=== PATIENT | female | born 1970 | race Native Hawaiian/Other Pacific Islander ===

== ENCOUNTER 2018-07-14 10:30 | Outpatient (RCR) | payer OTHER, SELFPAY ==
--- NOTE | 2018-02-03 06:09 | PT.OIE ---
Current Diagnoses Achilles tendinitis, unspecified leg (01/30/18) Past Surgical History History of third molar tooth extraction Status post delivery (06/10/04) Status post delivery (02/15/07) Provider Visit Care Team Role Provider Type Alisha Dorsey MD Family Provider Physician Specialty: AUTO BODY REPAIR TECHNICIAN Address: [address] [place] [id number] Email: [email or web address] Aristeo Oliva MD Attending Provider Physician Primary Care Provider Specialty: Family Practice Address: [address] [place] [address], [id number] Email: [email or web address] Physical Therapy Initial Evaluation PT-OP-A Visit Information Start: 02/03/18 05:41 Freq: Status: Active Protocol: Document 01/30/18 15:15 [facility] (Rec: 02/03/18 06:08 [facility] [email or web address]) Out-Patient Physical Therapy Visit Information Visit Information Visit Type Initial Evaluation Visit Start Time 15:15 Visit Stop Time 16:00 Total Visit Minutes 45 Visit Number 1 Number of COURTESY BUS DRIVER Visits 0 Evaluation Information Evaluation Date 01/30/18 PT-OP-B Current Condition Start: 02/03/18 05:41 Freq: Status: Active Protocol: Document 01/30/18 15:15 [facility] (Rec: 02/03/18 06:08 [facility] [email or web address]) Current Condition History of Current Condition Onset Date 1 year ago Current Complaints achilles pain left greater than right made worse with long distance running History of Current Condition 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 This progressed to effect her achilles tendon and felt acute in June. Lilliam notes she took a month off of running due to her pain. She then began training for a 50 k run in october. She was able to finish the run but she notes she could barely walk following. She is currently running approximately 15-20 miles a week now which is half of what she normally runs. She reports she has to start out really slow for her first few miles and then pain can begin after 5 miles. Treatment Goals Patient/Caregiver Goals Lilliam's goals include continuing to run without pain and to learn ways to manage her symptoms Current Functional Impairments (Reported) Functional Limitations- Recreation/ limited in running greater Hobbies than 5 miles at a time PT-OP-F Manual Assessment Start: 02/03/18 05:41 Freq: Status: Active Protocol: Document 01/30/18 15:15 [facility] (Rec: 02/03/18 06:08 [facility] [email or web address]) Manual Assessments Soft Tissue Assessment Soft Tissue Mobility Assessment tightness in the left greater than right gastroc and palpable nodule on the medial aspect of bilateral achilles Left>Right left iliopsoas tightness, + nirav test left hamstring tightness SLR 60 deg Joint Mobility Assessment Joint Mobility Assessment + ALSR on the left for SI joint instability LEft leg longer in supine PT-OP-J Posture/Palpation/Skin Start: 02/03/18 05:41 Freq: Status: Active Protocol: Document 01/30/18 15:15 [facility] (Rec: 02/03/18 06:08 [facility] [email or web address]) Palpation Assessment Location Two Palpation Location gastroc and soleus Palpation Findings Soft Tissue Tightness One Palpation Location Bilateral achilles tendons L>R Palpation Findings Tenderness Palpation Details palpable nodule felt on the medial aspect of the achilles tendon left greater than right with tenderness PT-OP-K Range of Motion Start: 02/03/18 05:41 Freq: Status: Active Protocol: Document 01/30/18 15:15 [facility] (Rec: 02/03/18 06:08 [facility] [email or web address]) Ankle and Foot Goniometric Range of Motion Ankle and Foot Measured in Degrees Right Testing Position Prone Dorsiflexion with Knee Flexed 10 Dorsiflexion with Knee Extended 8 Left Ankle/Foot ROM WFL No Testing Position Prone Dorsiflexion with Knee Flexed 8 Dorsiflexion with Knee Extended 5 PT-OP-Q Treatments Start: 02/03/18 05:41 Freq: Status: Active Protocol: Document 01/30/18 15:15 [facility] (Rec: 02/03/18 06:08 [facility] [email or web address]) Therapeutic Exercises Supine Exercises 1 Supine Exercise Name half kneeling iliopsoas stretch Side bilateral Manual Therapy Treatment Soft Tissue Mobilization 1 Body Location achilles tendon B Mobilization Type Cross-Friction Intensity/Depth Moderate Body Position Prone Self-Care/Home Management Treatment Education Patient Education Home Exercise Program Pain Management Caregiver Education Lilliam was instructed in TFM at the achilles x 5 min at a time and ice massage to the achilles Strapping Treatment Treatment Body Location left calf Details of Treatment kinesiotape for the left achilles tendon PT-OP-R Modalities Start: 02/03/18 05:41 Freq: Status: Active Protocol: Document 01/30/18 15:15 [facility] (Rec: 02/03/18 06:08 [facility] [email or web address]) Hot Pack/Cold Pack Treatment Ice Massage Patient Position Prone Comments ice massage to B achilles tendon Ultrasound Therapy Treatment Right Treatment Duration (minutes) 8 Patient Position Prone Coupling Medium Ultrasound Gel Applicator Size (cm2) 5 Intensity Setting (w/cm2) 1.2 Comments achilles tendon PT-OP-T Assessment and Plan Start: 02/03/18 05:41 Freq: Status: Active Protocol: Document 01/30/18 15:15 [facility] (Rec: 02/03/18 06:08 [facility] [email or web address]) Physical Therapy Assessment Rehab Potential Rehabilitation Potential Excellent Evaluation Complexity Number of Personal Factors/Comorbidities 0 Number of Body Systems Impaired 1-2 Clinical Presentation at Evaluation Stable Impairments Impairments Gait Pain ROM Soft Tissue Mobility Goals Four Impairment pain with running > 5 miles Assisted Goal (LTG) With manual therapy treatments , kinesiotaping, modalities, and self care Lilliam is able to return to running without pain Three Impairment Decreased stride length and tightness of the L>R iliopsoas and hamstring Assisted Goal (LTG) Improve length of the iliopsoas and hamstring on the left to improve stride length decreasing pull on the left SI joint and decreasing strain to the left achilles with running Two Impairment scar tissue nodule noted on the achilles tendon B Short Term Goal (STG) Lilliam is instructed in self TFM to decrease scar tissue at the achilles and help improve tensile strength One Impairment Decreased flexibility of the gastroc/soleus complex L>R Short Term Goal (STG) Lilliam is educated in a home program of flexibility training for the gastroc/ soleus musculature STG Duration 6 weeks Assessment Summary Assessment Lilliam presents to PT with symptoms of achilles tendonitis. 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 This progressed into acute achilles pain which has now limited her long distance runs. With examination B achilles have a palpable nodule on the medial aspect with left being more affected than right. She has limited calf ROM on the left and tightness in B gastroc soleus complex. She is also very tight in the left iliopsoas and hamstring and SI joint is unlocked on the left side. Her stride length is limited and this may be contributing to her achilles dysfunction. I instructed Lilliam in TFM to the achilles for home and did a trial of kinesiotape to her calf with today's treatment. She was given a home flexibility program to begin working on. Lilliam has cut back on her running and we discussed holding off on longer distances at this time to avoid further injury to the tissue. Lilliam is a good candidate for PT Physical Therapy Plan Frequency and Duration Frequency of Treatment 2x/Week Duration of Treatment 8 weeks Plan of Care Start Date 01/30/18 Plan of Care End Date 03/27/18 Therapeutic Interventions Therapeutic Interventions Home Exercise Program Manual Therapy Patient/Caregiver Education Self-Care/Home Management Soft Tissue Mobilization Taping Therapeutic Exercises Modalities Cold Pack/Ice Massage Ultrasound Next Visit Focus/Plan Next Visit Plan manual therapy treatment for the achilles and video analysis of running on the treadmill. Lilliam did not have running shoes with her for today's treatment
--- NOTE | 2018-02-03 06:10 | PT.OPPOC ---
Current Diagnoses Achilles tendinitis, unspecified leg (01/30/18) Provider Visit Care Team Role Provider Type Alisha Dorsey MD Family Provider Physician Specialty: HOUSEHOLD ASSISTANT Address: [address] [place] [address], [id number] Email: [email or web address] Aristeo Oliva MD Attending Provider Physician Primary Care Provider Specialty: Family Practice Address: [address] [place] [address], [id number] Email: [email or web address] Plan Of Care PT-OP-T Assessment and Plan Start: 02/03/18 05:41 Freq: Status: Active Protocol: Document 01/30/18 15:15 [facility] (Rec: 02/03/18 06:08 [facility] [email or web address]) Physical Therapy Assessment Rehab Potential Rehabilitation Potential Excellent Evaluation Complexity Number of Personal Factors/Comorbidities 0 Number of Body Systems Impaired 1-2 Clinical Presentation at Evaluation Stable Impairments Impairments Gait Pain ROM Soft Tissue Mobility Goals Four Impairment pain with running > 5 miles Care Home Goal (LTG) With manual therapy treatments , kinesiotaping, modalities, and self care Lilliam is able to return to running without pain Three Impairment Decreased stride length and tightness of the L>R iliopsoas and hamstring Customer Quality Specialist Goal (LTG) Improve length of the iliopsoas and hamstring on the left to improve stride length decreasing pull on the left SI joint and decreasing strain to the left achilles with running Two Impairment scar tissue nodule noted on the achilles tendon B Short Term Goal (STG) Lilliam is instructed in self TFM to decrease scar tissue at the achilles and help improve tensile strength One Impairment Decreased flexibility of the gastroc/soleus complex L>R Short Term Goal (STG) Lilliam is educated in a home program of flexibility training for the gastroc/ soleus musculature STG Duration 6 weeks Assessment Summary Assessment Lilliam presents to PT with symptoms of achilles tendonitis. 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 This progressed into acute achilles pain which has now limited her long distance runs. With examination B achilles have a palpable nodule on the medial aspect with left being more affected than right. She has limited calf ROM on the left and tightness in B gastroc soleus complex. She is also very tight in the left iliopsoas and hamstring and SI joint is unlocked on the left side. Her stride length is limited and this may be contributing to her achilles dysfunction. I instructed Lilliam in TFM to the achilles for home and did a trial of kinesiotape to her calf with today's treatment. She was given a home flexibility program to begin working on. Lilliam has cut back on her running and we discussed holding off on longer distances at this time to avoid further injury to the tissue. Lilliam is a good candidate for PT Physical Therapy Plan Frequency and Duration Frequency of Treatment 2x/Week Duration of Treatment 8 weeks Plan of Care Start Date 01/30/18 Plan of Care End Date 03/27/18 Therapeutic Interventions Therapeutic Interventions Home Exercise Program Manual Therapy Patient/Caregiver Education Self-Care/Home Management Soft Tissue Mobilization Taping Therapeutic Exercises Modalities Cold Pack/Ice Massage Ultrasound Next Visit Focus/Plan Next Visit Plan manual therapy treatment for the achilles and video analysis of running on the treadmill. Lilliam did not have running shoes with her for today's treatment Plan of Care Dates Plan of Care Start Date 01/30/18 Plan of Care End Date 03/27/18 Please Sign and Return: I have reviewed this Plan of Care and certify that the skilled therapy services above are required to meet the patient?s needs. Physician Signature Date Printed Name and Credentials Clinical Instructor Signature Printed Name and Credentials
--- NOTE | 2018-02-06 18:50 | PT.OTN ---
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 This progressed to effect her achilles tendon and felt acute in June. Lilliam notes she took a month off of running due to her pain. She then began training for a 50 k run in october. She was able to finish the run but she notes she could barely walk following. She is currently running approximately 15-20 miles a week now which is half of what she normally runs. She reports she has to start out really slow for her first few miles and then pain can begin after 5 miles. Treatment Goals Patient/Caregiver Goals Lilliam's goals include continuing to run without pain and to learn ways to manage her symptoms Current Functional Impairments (Reported) Functional Limitations- Recreation/ limited in running greater Hobbies than 5 miles at a time PT-OP-C Subjective Start: 02/03/18 05:41 Freq: Status: Active Protocol: Document 02/05/18 13:00 [facility] (Rec: 02/06/18 18:38 [facility] [email or web address]) OP-PT Subjective Patient Comments Patient Comments Lilliam reports she tried walking to warm up and felt this helped before she ran. She can feel achilles pain begain around mile 5 with running. SHe has been trying to stretch PT-OP-F Manual Assessment Start: 02/03/18 05:41 Freq: Status: Active Protocol: Document 01/30/18 15:15 [facility] (Rec: 02/03/18 06:08 [facility] [email or web address]) Manual Assessments Soft Tissue Assessment Soft Tissue Mobility Assessment tightness in the left greater than right gastroc and palpable nodule on the medial aspect of bilateral achilles Left>Right left iliopsoas tightness, + nirav test left hamstring tightness SLR 60 deg Joint Mobility Assessment Joint Mobility Assessment + ALSR on the left for SI joint instability LEft leg longer in supine PT-OP-J Posture/Palpation/Skin Start: 02/03/18 05:41 Freq: Status: Active Protocol: Document 01/30/18 15:15 [facility] (Rec: 02/03/18 06:08 [facility] [email or web address]) Palpation Assessment Location Two Palpation Location gastroc and soleus Palpation Findings Soft Tissue Tightness One Palpation Location Bilateral achilles tendons L>R Palpation Findings Tenderness Palpation Details palpable nodule felt on the medial aspect of the achilles tendon left greater than right with tenderness PT-OP-K Range of Motion Start: 02/03/18 05:41 Freq: Status: Active Protocol: Document 01/30/18 15:15 [facility] (Rec: 02/03/18 06:08 [facility] [email or web address]) Ankle and Foot Goniometric Range of Motion Ankle and Foot Measured in Degrees Right Testing Position Prone Dorsiflexion with Knee Flexed 10 Dorsiflexion with Knee Extended 8 Left Ankle/Foot ROM WFL No Testing Position Prone Dorsiflexion with Knee Flexed 8 Dorsiflexion with Knee Extended 5 PT-OP-Q Treatments Start: 02/03/18 05:41 Freq: Status: Active Protocol: Document 02/05/18 13:00 [facility] (Rec: 02/06/18 18:38 [facility] [email or web address]) Therapeutic Exercises Supine Exercises 1 Supine Exercise Name half kneeling iliopsoas stretch Side bilateral Standing Exercises 2 Standing Exercise Name eccentric calf lowering Reps/Minutes 2 x 10 reps 1 Standing Exercise Name standing arch lift and proper foot alignment with balance on single leg Manual Therapy Treatment Soft Tissue Mobilization 2 Body Location gastroc, soleus, tibialis posterior MFR Body Position Prone 1 Body Location achilles tendon B Mobilization Type Cross-Friction Intensity/Depth Moderate Body Position Prone Taping 1 Body Location kinesiotape for the left achilles PT-OP-R Modalities Start: 02/03/18 05:41 Freq: Status: Active Protocol: Document 01/30/18 15:15 [facility] (Rec: 02/03/18 06:08 [facility] [email or web address]) Hot Pack/Cold Pack Treatment Ice Massage Patient Position Prone Comments ice massage to B achilles tendon Ultrasound Therapy Treatment left achilles Treatment Duration (minutes) 8 Patient Position Prone Coupling Medium Ultrasound Gel Applicator Size (cm2) 5 Mode Setting Continuous Duty Cycle 100% Intensity Setting (w/cm2) 1.2 Right Intensity Setting (w/cm2) 1.2 Comments achilles tendon PT-OP-T Assessment and Plan Start: 02/03/18 05:41 Freq: Status: Active Protocol: Document 02/05/18 13:00 [facility] (Rec: 02/06/18 18:47 [facility] [email or web address]) Physical Therapy Assessment Assessment Summary Assessment In standing Lilliam does collapse more on her left foot than her right in the arch. SHe is able to correct with with a great toe arch lift and hold this for single leg stance. She purchased super feet today for arch support in her shoes. She tolerated manual therapy treatments well today and no pain with stretching. With gait analysis on treadmill the left foot collapses more as well and you can see how there can be a medial strain to the achilles. Stride length is shortened on the left. Super feet may help and she is also considering orthotics. Physical Therapy Plan Frequency and Duration Frequency of Treatment 2x/Week Duration of Treatment 8 weeks Plan of Care Start Date 01/30/18 Plan of Care End Date 03/27/18 Therapeutic Interventions Therapeutic Interventions Home Exercise Program Manual Therapy Patient/Caregiver Education Self-Care/Home Management Soft Tissue Mobilization Taping Therapeutic Exercises Modalities Cold Pack/Ice Massage Ultrasound Next Visit Focus/Plan Next Visit Plan continue working on decreasing scar tissue at the achilles and working on arch support for the left foot to decrease strain. Gluteus medius strengthening would be beneficial for Lilliam
--- NOTE | 2018-02-10 16:13 | PT.OTN ---
Current Diagnoses Achilles tendinitis, unspecified leg (02/10/18) Physical Therapy Treatment Note PT-OP-A Visit Information Start: 02/03/18 05:41 Freq: Status: Active Protocol: Document 02/10/18 15:48 [facility] (Rec: 02/10/18 16:12 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 This progressed to effect her achilles tendon and felt acute in June. Lilliam notes she took a month off of running due to her pain. She then began training for a 50 k run in october. She was able to finish the run but she notes she could barely walk following. She is currently running approximately 15-20 miles a week now which is half of what she normally runs. She reports she has to start out really slow for her first few miles and then pain can begin after 5 miles. Treatment Goals Patient/Caregiver Goals Lilliam's goals include continuing to run without pain and to learn ways to manage her symptoms Current Functional Impairments (Reported) Functional Limitations- Recreation/ limited in running greater Hobbies than 5 miles at a time PT-OP-C Subjective Start: 02/03/18 05:41 Freq: Status: Active Protocol: Document 02/10/18 15:48 [facility] (Rec: 02/10/18 16:12 [facility] [email or web address]) OP-PT Subjective Patient Comments Patient Comments Reports she did not run today as she is mountain biking later. She did about 30 miles last week. Reports improving slowly. PT-OP-F Manual Assessment Start: 02/03/18 05:41 Freq: Status: Active Protocol: Document 01/30/18 15:15 [facility] (Rec: 02/03/18 06:08 [facility] [email or web address]) Manual Assessments Soft Tissue Assessment Soft Tissue Mobility Assessment tightness in the left greater than right gastroc and palpable nodule on the medial aspect of bilateral achilles Left>Right left iliopsoas tightness, + nirav test left hamstring tightness SLR 60 deg Joint Mobility Assessment Joint Mobility Assessment + ALSR on the left for SI joint instability LEft leg longer in supine PT-OP-J Posture/Palpation/Skin Start: 02/03/18 05:41 Freq: Status: Active Protocol: Document 01/30/18 15:15 [facility] (Rec: 02/03/18 06:08 [facility] [email or web address]) Palpation Assessment Location Two Palpation Location gastroc and soleus Palpation Findings Soft Tissue Tightness One Palpation Location Bilateral achilles tendons L>R Palpation Findings Tenderness Palpation Details palpable nodule felt on the medial aspect of the achilles tendon left greater than right with tenderness PT-OP-K Range of Motion Start: 02/03/18 05:41 Freq: Status: Active Protocol: Document 01/30/18 15:15 [facility] (Rec: 02/03/18 06:08 [facility] [email or web address]) Ankle and Foot Goniometric Range of Motion Ankle and Foot Measured in Degrees Right Testing Position Prone Dorsiflexion with Knee Flexed 10 Dorsiflexion with Knee Extended 8 Left Ankle/Foot ROM WFL No Testing Position Prone Dorsiflexion with Knee Flexed 8 Dorsiflexion with Knee Extended 5 PT-OP-Q Treatments Start: 02/03/18 05:41 Freq: Status: Active Protocol: Document 02/10/18 15:48 [facility] (Rec: 02/10/18 16:12 [facility] [email or web address]) Therapeutic Exercises Standing Exercises 3 Standing Exercise Name standing arch lift positioning Manual Therapy Treatment Soft Tissue Mobilization 2 Body Location gastroc, soleus, tibialis posterior MFR Body Position Prone Comments circumfrential FM 1 Body Location achilles tendon B Mobilization Type Rolling Sustained Pressure Intensity/Depth Moderate Body Position Prone Comments FM w/PF/DF Joint Mobilizations 2 Joint tibiofibular Direction AP Comments FM w/APs on tibia 1 Joint calcaneal talar Direction distraction, tilt & translation Comments FM in DF Self-Care/Home Management Treatment Education Other Education anatomy of foot & pelvis/LE. Discussed posibility of neural tension especially with hx of HS origin pain & uneven leg length PT-OP-R Modalities Start: 02/03/18 05:41 Freq: Status: Active Protocol: Document 02/10/18 15:48 [facility] (Rec: 02/10/18 16:13 [facility] [email or web address]) Hot Pack/Cold Pack Treatment Ice Massage Patient Position Prone Comments ice massage to L achilles tendon Ultrasound Therapy Treatment left achilles Treatment Duration (minutes) 8 Patient Position Prone Coupling Medium Ultrasound Gel Applicator Size (cm2) 5 Mode Setting Continuous Duty Cycle 100% Intensity Setting (w/cm2) 1.2 PT-OP-T Assessment and Plan Start: 02/03/18 05:41 Freq: Status: Active Protocol: Document 02/10/18 15:48 [facility] (Rec: 02/10/18 16:12 [facility] [email or web address]) Physical Therapy Assessment Goals Four Impairment pain with running > 5 miles Neuropsychology Director Goal (LTG) With manual therapy treatments , kinesiotaping, modalities, and self care Lilliam is able to return to running without pain Three Impairment Decreased stride length and tightness of the L>R iliopsoas and hamstring Neuropsychology Director Goal (LTG) Improve length of the iliopsoas and hamstring on the left to improve stride length decreasing pull on the left SI joint and decreasing strain to the left achilles with running Two Impairment scar tissue nodule noted on the achilles tendon B Short Term Goal (STG) Lilliam is instructed in self TFM to decrease scar tissue at the achilles and help improve tensile strength One Impairment Decreased flexibility of the gastroc/soleus complex L>R Short Term Goal (STG) Lilliam is educated in a home program of flexibility training for the gastroc/ soleus musculature STG Duration 6 weeks Assessment Summary Assessment Pt had dec tibial ER with knee bending after manual mobilizations. She cont to have forefoot tightness that will require treatment & likely has neural tension leading to this pain starting in lumbopelvic region. Physical Therapy Plan Frequency and Duration Frequency of Treatment 2x/Week Duration of Treatment 8 weeks Plan of Care Start Date 01/30/18 Plan of Care End Date 03/27/18 Next Visit Focus/Plan Next Visit Plan cuboid, cuneiform & talar mobs ; Assess pelvis & follow sciatic pathway (possible dural tension for coccyx or pelvic dysfunction)
--- NOTE | 2018-02-17 15:05 | PT.OTN ---
Current Diagnoses Achilles tendinitis, unspecified leg (02/17/18) Physical Therapy Treatment Note PT-OP-A Visit Information Start: 02/03/18 05:41 Freq: Status: Active Protocol: Document 02/17/18 14:48 [facility] (Rec: 02/17/18 15:04 [facility] [email or web address]) Out-Patient Physical Therapy Visit Information Visit Information Visit Type Treatment Note Visit Start Time 12:15 Visit Stop Time 13:00 Total Visit Minutes 45 Visit Number 4 Number of DATABASES SOFTWARE CONSULTANT Visits 0 PT-OP-B Current Condition Start: 02/03/18 05:41 Freq: Status: Active Protocol: Document 01/30/18 15:15 [facility] (Rec: 02/03/18 06:08 [facility] [email or web address]) Current Condition History of Current Condition Onset Date 1 year ago Current Complaints achilles pain left greater than right made worse with long distance running History of Current Condition 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 This progressed to effect her achilles tendon and felt acute in June. Lilliam notes she took a month off of running due to her pain. She then began training for a 50 k run in october. She was able to finish the run but she notes she could barely walk following. She is currently running approximately 15-20 miles a week now which is half of what she normally runs. She reports she has to start out really slow for her first few miles and then pain can begin after 5 miles. Treatment Goals Patient/Caregiver Goals Lilliam's goals include continuing to run without pain and to learn ways to manage her symptoms Current Functional Impairments (Reported) Functional Limitations- Recreation/ limited in running greater Hobbies than 5 miles at a time PT-OP-C Subjective Start: 02/03/18 05:41 Freq: Status: Active Protocol: Document 02/17/18 14:48 [facility] (Rec: 02/17/18 15:04 [facility] [email or web address]) OP-PT Subjective Patient Comments Patient Comments Reports she hasn't run since last session d/t mtn biking in a race and doing a long kayak trip to [facility]. Insoles help. PT-OP-F Manual Assessment Start: 02/03/18 05:41 Freq: Status: Active Protocol: Document 01/30/18 15:15 [facility] (Rec: 02/03/18 06:08 [facility] [email or web address]) Manual Assessments Soft Tissue Assessment Soft Tissue Mobility Assessment tightness in the left greater than right gastroc and palpable nodule on the medial aspect of bilateral achilles Left>Right left iliopsoas tightness, + nirav test left hamstring tightness SLR 60 deg Joint Mobility Assessment Joint Mobility Assessment + ALSR on the left for SI joint instability LEft leg longer in supine PT-OP-J Posture/Palpation/Skin Start: 02/03/18 05:41 Freq: Status: Active Protocol: Document 01/30/18 15:15 [facility] (Rec: 02/03/18 06:08 [facility] [email or web address]) Palpation Assessment Location Two Palpation Location gastroc and soleus Palpation Findings Soft Tissue Tightness One Palpation Location Bilateral achilles tendons L>R Palpation Findings Tenderness Palpation Details palpable nodule felt on the medial aspect of the achilles tendon left greater than right with tenderness PT-OP-K Range of Motion Start: 02/03/18 05:41 Freq: Status: Active Protocol: Document 01/30/18 15:15 [facility] (Rec: 02/03/18 06:08 [facility] [email or web address]) Ankle and Foot Goniometric Range of Motion Ankle and Foot Measured in Degrees Right Testing Position Prone Dorsiflexion with Knee Flexed 10 Dorsiflexion with Knee Extended 8 Left Ankle/Foot ROM WFL No Testing Position Prone Dorsiflexion with Knee Flexed 8 Dorsiflexion with Knee Extended 5 PT-OP-Q Treatments Start: 02/03/18 05:41 Freq: Status: Active Protocol: Document 02/17/18 14:58 [facility] (Rec: 02/17/18 15:03 [facility] [email or web address]) Therapeutic Exercises Prone Exercises 1 Prone Exercise Name ER & IR Side bilateral Resistance L1 Reps/Minutes 5 Manual Therapy Treatment Soft Tissue Mobilization 2 Body Location gastroc, soleus, tibialis posterior MFR Body Position Prone Comments circumfrential FM 1 Body Location achilles tendon B Mobilization Type Rolling Sustained Pressure Intensity/Depth Moderate Body Position Prone Comments FM w/PF/DF Joint Mobilizations 4 Joint hip Direction on axis ER & IR FM Comments neuro re edu for end range 3 Joint talar Direction AP, distraction & tilt lat Comments FM in DF 1 Joint calcaneal Direction distraction, tilt Comments FM in DF PT-OP-R Modalities Start: 02/03/18 05:41 Freq: Status: Active Protocol: Document 02/17/18 14:48 [facility] (Rec: 02/17/18 15:04 [facility] [email or web address]) Hot Pack/Cold Pack Treatment Ice Massage Patient Position Prone Comments ice massage to B achilles tendon PT-OP-T Assessment and Plan Start: 02/03/18 05:41 Freq: Status: Active Protocol: Document 02/17/18 14:58 [facility] (Rec: 02/17/18 15:03 [facility] [email or web address]) Physical Therapy Assessment Goals Four Impairment pain with running > 5 miles Vacation Planner Goal (LTG) With manual therapy treatments , kinesiotaping, modalities, and self care Lilliam is able to return to running without pain Three Impairment Decreased stride length and tightness of the L>R iliopsoas and hamstring Residential Goal (LTG) Improve length of the iliopsoas and hamstring on the left to improve stride length decreasing pull on the left SI joint and decreasing strain to the left achilles with running Two Impairment scar tissue nodule noted on the achilles tendon B Short Term Goal (STG) Lilliam is instructed in self TFM to decrease scar tissue at the achilles and help improve tensile strength One Impairment Decreased flexibility of the gastroc/soleus complex L>R Short Term Goal (STG) Lilliam is educated in a home program of flexibility training for the gastroc/ soleus musculature STG Duration 6 weeks Assessment Summary Assessment Pt had poor femoral tracking with ER & IR and requires FM with neuro re edu to inc range . HEP given to maintain range. Pt had HS cramp with sustained hold of ER in prone likely d/t overuse of HS in insufficiency position. Pt cont to have L>R calf tightness and dec talar mobility. Physical Therapy Plan Frequency and Duration Frequency of Treatment 2x/Week Duration of Treatment 8 weeks Plan of Care Start Date 01/30/18 Plan of Care End Date 03/27/18 Next Visit Focus/Plan Next Note Type Treatment Note Next Visit Plan cuboid, cuneiform mobs; Assess pelvis & follow sciatic pathway (possible dural tension for coccyx or pelvic dysfunction)
--- NOTE | 2018-02-24 13:00 | PT.OTN ---
Current Diagnoses Achilles tendinitis, unspecified leg (02/24/18) Physical Therapy Treatment Note PT-OP-A Visit Information Start: 02/03/18 05:41 Freq: Status: Active Protocol: Document 02/24/18 16:13 [facility] (Rec: 02/24/18 16:15 [facility] [email or web address]) Out-Patient Physical Therapy Visit Information Visit Information Visit Type Treatment Note Visit Start Time 12:15 Visit Stop Time 13:00 Total Visit Minutes 45 Visit Number 5 PT-OP-B Current Condition Start: 02/03/18 05:41 Freq: Status: Active Protocol: Document 01/30/18 15:15 [facility] (Rec: 02/03/18 06:08 [facility] [email or web address]) Current Condition History of Current Condition Onset Date 1 year ago Current Complaints achilles pain left greater than right made worse with long distance running History of Current Condition 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 This progressed to effect her achilles tendon and felt acute in June. Lilliam notes she took a month off of running due to her pain. She then began training for a 50 k run in october. She was able to finish the run but she notes she could barely walk following. She is currently running approximately 15-20 miles a week now which is half of what she normally runs. She reports she has to start out really slow for her first few miles and then pain can begin after 5 miles. Treatment Goals Patient/Caregiver Goals Lilliam's goals include continuing to run without pain and to learn ways to manage her symptoms Current Functional Impairments (Reported) Functional Limitations- Recreation/ limited in running greater Hobbies than 5 miles at a time PT-OP-C Subjective Start: 02/03/18 05:41 Freq: Status: Active Protocol: Document 02/24/18 16:13 [facility] (Rec: 02/24/18 16:15 [facility] [email or web address]) OP-PT Subjective Patient Comments Patient Comments pt reports she did a 9 mile run and did not feel her ischial tuberosity region during it and her achilles felt good PT-OP-F Manual Assessment Start: 02/03/18 05:41 Freq: Status: Active Protocol: Document 01/30/18 15:15 [facility] (Rec: 02/03/18 06:08 [facility] [email or web address]) Manual Assessments Soft Tissue Assessment Soft Tissue Mobility Assessment tightness in the left greater than right gastroc and palpable nodule on the medial aspect of bilateral achilles Left>Right left iliopsoas tightness, + nirav test left hamstring tightness SLR 60 deg Joint Mobility Assessment Joint Mobility Assessment + ALSR on the left for SI joint instability LEft leg longer in supine PT-OP-J Posture/Palpation/Skin Start: 02/03/18 05:41 Freq: Status: Active Protocol: Document 01/30/18 15:15 [facility] (Rec: 02/03/18 06:08 [facility] [email or web address]) Palpation Assessment Location Two Palpation Location gastroc and soleus Palpation Findings Soft Tissue Tightness One Palpation Location Bilateral achilles tendons L>R Palpation Findings Tenderness Palpation Details palpable nodule felt on the medial aspect of the achilles tendon left greater than right with tenderness PT-OP-K Range of Motion Start: 02/03/18 05:41 Freq: Status: Active Protocol: Document 01/30/18 15:15 [facility] (Rec: 02/03/18 06:08 [facility] [email or web address]) Ankle and Foot Goniometric Range of Motion Ankle and Foot Measured in Degrees Right Testing Position Prone Dorsiflexion with Knee Flexed 10 Dorsiflexion with Knee Extended 8 Left Ankle/Foot ROM WFL No Testing Position Prone Dorsiflexion with Knee Flexed 8 Dorsiflexion with Knee Extended 5 PT-OP-Q Treatments Start: 02/03/18 05:41 Freq: Status: Active Protocol: Document 02/24/18 16:13 [facility] (Rec: 02/24/18 16:15 [facility] [email or web address]) Therapeutic Exercises Sidelying Exercises 1 Sidelying Exercise Name hip abd vs wall Side bilateral Reps/Minutes 10 Standing Exercises 3 Standing Exercise Name standing arch lift positioning Manual Therapy Treatment Soft Tissue Mobilization 2 Body Location gastroc, soleus, tibialis posterior MFR Body Position Prone Comments circumfrential FM 1 Body Location achilles tendon B Mobilization Type Rolling Sustained Pressure Intensity/Depth Moderate Body Position Prone Comments FM w/PF/DF Joint Mobilizations 5 Joint navicular & cuneiforms Direction med lat FM Comments w/supination 4 Joint hip Direction on axis ER & IR FM Comments neuro re edu for end range PT-OP-R Modalities Start: 02/03/18 05:41 Freq: Status: Active Protocol: Document 02/17/18 14:48 [facility] (Rec: 02/17/18 15:04 [facility] [email or web address]) Hot Pack/Cold Pack Treatment Ice Massage Patient Position Prone Comments ice massage to B achilles tendon PT-OP-T Assessment and Plan Start: 02/03/18 05:41 Freq: Status: Active Protocol: Document 02/24/18 16:13 [facility] (Rec: 02/25/18 10:29 [facility] [id number]) Physical Therapy Assessment Goals Four Impairment pain with running > 5 miles Credit Advisor Goal (LTG) With manual therapy treatments , kinesiotaping, modalities, and self care Lilliam is able to return to running without pain Three Impairment Decreased stride length and tightness of the L>R iliopsoas and hamstring Credit Advisor Goal (LTG) Improve length of the iliopsoas and hamstring on the left to improve stride length decreasing pull on the left SI joint and decreasing strain to the left achilles with running Two Impairment scar tissue nodule noted on the achilles tendon B Short Term Goal (STG) Lilliam is instructed in self TFM to decrease scar tissue at the achilles and help improve tensile strength One Impairment Decreased flexibility of the gastroc/soleus complex L>R Short Term Goal (STG) Lilliam is educated in a home program of flexibility training for the gastroc/ soleus musculature STG Duration 6 weeks Assessment Summary Assessment Pt is improving with calf mobility & achilles mobility. Pt does have some immobility in cuneiforms & navicular mobility. Physical Therapy Plan Frequency and Duration Frequency of Treatment 2x/Week Duration of Treatment 8 weeks Plan of Care Start Date 01/30/18 Plan of Care End Date 03/27/18 Next Visit Focus/Plan Next Note Type Treatment Note Next Visit Plan cuboid, cuneiform mobs; Assess pelvis & follow sciatic pathway (possible dural tension for coccyx or pelvic dysfunction)
--- NOTE | 2018-02-27 13:55 | PT.OTN ---
Current Diagnoses Achilles tendinitis, unspecified leg (02/27/18) Physical Therapy Treatment Note PT-OP-A Visit Information Start: 02/03/18 05:41 Freq: Status: Active Protocol: Document 02/27/18 13:01 [facility] (Rec: 02/27/18 13:53 [facility] [id number]) Out-Patient Physical Therapy Visit Information Visit Information Visit Type Treatment Note Visit Start Time 13:00 Visit Stop Time 13:50 Total Visit Minutes 50 Visit Number 6 PT-OP-B Current Condition Start: 02/03/18 05:41 Freq: Status: Active Protocol: Document 01/30/18 15:15 [facility] (Rec: 02/03/18 06:08 [facility] [email or web address]) Current Condition History of Current Condition Onset Date 1 year ago Current Complaints achilles pain left greater than right made worse with long distance running History of Current Condition 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 This progressed to effect her achilles tendon and felt acute in June. Lilliam notes she took a month off of running due to her pain. She then began training for a 50 k run in october. She was able to finish the run but she notes she could barely walk following. She is currently running approximately 15-20 miles a week now which is half of what she normally runs. She reports she has to start out really slow for her first few miles and then pain can begin after 5 miles. Treatment Goals Patient/Caregiver Goals Lilliam's goals include continuing to run without pain and to learn ways to manage her symptoms Current Functional Impairments (Reported) Functional Limitations- Recreation/ limited in running greater Hobbies than 5 miles at a time PT-OP-C Subjective Start: 02/03/18 05:41 Freq: Status: Active Protocol: Document 02/27/18 13:01 [facility] (Rec: 02/27/18 13:53 [facility] [id number]) OP-PT Subjective Patient Comments Patient Comments Pt reports no soreness after run on saturday or rock climbing yesterday. Mild stiffness in achilles yesterday after 6 mile run. Reports she has some mild pain on bottom of L foot when starting running since using superfeets but it goes away after first mile. PT-OP-F Manual Assessment Start: 02/03/18 05:41 Freq: Status: Active Protocol: Document 01/30/18 15:15 [facility] (Rec: 02/03/18 06:08 [facility] [email or web address]) Manual Assessments Soft Tissue Assessment Soft Tissue Mobility Assessment tightness in the left greater than right gastroc and palpable nodule on the medial aspect of bilateral achilles Left>Right left iliopsoas tightness, + nirav test left hamstring tightness SLR 60 deg Joint Mobility Assessment Joint Mobility Assessment + ALSR on the left for SI joint instability LEft leg longer in supine PT-OP-J Posture/Palpation/Skin Start: 02/03/18 05:41 Freq: Status: Active Protocol: Document 01/30/18 15:15 [facility] (Rec: 02/03/18 06:08 [facility] [email or web address]) Palpation Assessment Location Two Palpation Location gastroc and soleus Palpation Findings Soft Tissue Tightness One Palpation Location Bilateral achilles tendons L>R Palpation Findings Tenderness Palpation Details palpable nodule felt on the medial aspect of the achilles tendon left greater than right with tenderness PT-OP-K Range of Motion Start: 02/03/18 05:41 Freq: Status: Active Protocol: Document 01/30/18 15:15 [facility] (Rec: 02/03/18 06:08 [facility] [email or web address]) Ankle and Foot Goniometric Range of Motion Ankle and Foot Measured in Degrees Right Testing Position Prone Dorsiflexion with Knee Flexed 10 Dorsiflexion with Knee Extended 8 Left Ankle/Foot ROM WFL No Testing Position Prone Dorsiflexion with Knee Flexed 8 Dorsiflexion with Knee Extended 5 PT-OP-Q Treatments Start: 02/03/18 05:41 Freq: Status: Active Protocol: Document 02/27/18 13:01 [facility] (Rec: 02/27/18 13:53 [facility] [id number]) Therapeutic Exercises Standing Exercises 1 Standing Exercise Name SLS with focus on neutral foot Other Exercises 1 Other Exercise Name quadruped hip ext Manual Therapy Treatment Soft Tissue Mobilization 3 Body Location plantar fascae L>R 2 Body Location gastroc, soleus, tibialis posterior MFR Body Position Prone & standing Comments circumfrential FM & along mm borders 1 Body Location achilles tendon B Mobilization Type Rolling Sustained Pressure Intensity/Depth Moderate Body Position Prone Comments FM w/PF/DF Joint Mobilizations 4 Joint hip Direction on axis ER FM Comments neuro re edu for end range 2 Joint tibiofibular Direction AP Body Position Standing Comments FM w/APs on tibia PT-OP-R Modalities Start: 02/03/18 05:41 Freq: Status: Active Protocol: Document 02/27/18 13:01 [facility] (Rec: 02/27/18 13:54 [facility] [id number]) Hot Pack/Cold Pack Treatment Ice Massage Patient Position Prone Comments ice massage to B achilles tendon PT-OP-T Assessment and Plan Start: 02/03/18 05:41 Freq: Status: Active Protocol: Document 02/27/18 13:01 [facility] (Rec: 02/27/18 13:53 [facility] [id number]) Physical Therapy Assessment Goals Four Impairment pain with running > 5 miles [employer] Salesperson Goal (LTG) With manual therapy treatments , kinesiotaping, modalities, and self care Lilliam is able to return to running without pain Three Impairment Decreased stride length and tightness of the L>R iliopsoas and hamstring Longterm Goal (LTG) Improve length of the iliopsoas and hamstring on the left to improve stride length decreasing pull on the left SI joint and decreasing strain to the left achilles with running Two Impairment scar tissue nodule noted on the achilles tendon B Short Term Goal (STG) Lilliam is instructed in self TFM to decrease scar tissue at the achilles and help improve tensile strength One Impairment Decreased flexibility of the gastroc/soleus complex L>R Short Term Goal (STG) Lilliam is educated in a home program of flexibility training for the gastroc/ soleus musculature STG Duration 6 weeks Assessment Summary Assessment Improved foot positioning with SLS on L foot with tibia ER positioning. Pt tends to IR tibia in stance, creating inc forefoot pronation. Physical Therapy Plan Frequency and Duration Frequency of Treatment 2x/Week Duration of Treatment 8 weeks Plan of Care Start Date 01/30/18 Plan of Care End Date 03/27/18 Next Visit Focus/Plan Next Note Type Treatment Note Next Visit Plan cuboid, cuneiform mobs; Assess pelvis & follow sciatic pathway (possible dural tension for coccyx or pelvic dysfunction)
--- NOTE | 2018-03-03 15:26 | PT.OTN ---
Current Diagnoses Achilles tendinitis, unspecified leg (03/03/18) Physical Therapy Treatment Note PT-OP-A Visit Information Start: 02/03/18 05:41 Freq: Status: Active Protocol: Document 03/03/18 14:30 [facility] (Rec: 03/03/18 15:25 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 This progressed to effect her achilles tendon and felt acute in June. Lilliam notes she took a month off of running due to her pain. She then began training for a 50 k run in october. She was able to finish the run but she notes she could barely walk following. She is currently running approximately 15-20 miles a week now which is half of what she normally runs. She reports she has to start out really slow for her first few miles and then pain can begin after 5 miles. Treatment Goals Patient/Caregiver Goals Lilliam's goals include continuing to run without pain and to learn ways to manage her symptoms Current Functional Impairments (Reported) Functional Limitations- Recreation/ limited in running greater Hobbies than 5 miles at a time PT-OP-C Subjective Start: 02/03/18 05:41 Freq: Status: Active Protocol: Document 03/03/18 14:30 [facility] (Rec: 03/03/18 15:25 [facility] [email or web address]) OP-PT Subjective Patient Comments Patient Comments Reports she ran this weekend and was able to do 6-7 miles with minor stiffness after in achilles. Reports hasn't felt the HS orgin pain recently PT-OP-F Manual Assessment Start: 02/03/18 05:41 Freq: Status: Active Protocol: Document 01/30/18 15:15 [facility] (Rec: 02/03/18 06:08 [facility] [email or web address]) Manual Assessments Soft Tissue Assessment Soft Tissue Mobility Assessment tightness in the left greater than right gastroc and palpable nodule on the medial aspect of bilateral achilles Left>Right left iliopsoas tightness, + nirav test left hamstring tightness SLR 60 deg Joint Mobility Assessment Joint Mobility Assessment + ALSR on the left for SI joint instability LEft leg longer in supine PT-OP-J Posture/Palpation/Skin Start: 02/03/18 05:41 Freq: Status: Active Protocol: Document 01/30/18 15:15 [facility] (Rec: 02/03/18 06:08 [facility] [email or web address]) Palpation Assessment Location Two Palpation Location gastroc and soleus Palpation Findings Soft Tissue Tightness One Palpation Location Bilateral achilles tendons L>R Palpation Findings Tenderness Palpation Details palpable nodule felt on the medial aspect of the achilles tendon left greater than right with tenderness PT-OP-K Range of Motion Start: 02/03/18 05:41 Freq: Status: Active Protocol: Document 01/30/18 15:15 [facility] (Rec: 02/03/18 06:08 [facility] [email or web address]) Ankle and Foot Goniometric Range of Motion Ankle and Foot Measured in Degrees Right Testing Position Prone Dorsiflexion with Knee Flexed 10 Dorsiflexion with Knee Extended 8 Left Ankle/Foot ROM WFL No Testing Position Prone Dorsiflexion with Knee Flexed 8 Dorsiflexion with Knee Extended 5 PT-OP-Q Treatments Start: 02/03/18 05:41 Freq: Status: Active Protocol: Document 03/03/18 14:30 [facility] (Rec: 03/03/18 15:25 [facility] [id number]) Therapeutic Exercises Supine Exercises 2 Supine Exercise Name abdominal series: flex & diagonal Side bilateral Standing Exercises 4 Standing Exercise Name Gait exercise at wall Manual Therapy Treatment Soft Tissue Mobilization 2 Body Location gastroc, soleus, tibialis posterior MFR Body Position Prone & standing Comments circumfrential FM & along mm borders 1 Body Location achilles tendon B Mobilization Type Rolling Sustained Pressure Intensity/Depth Moderate Body Position Prone Comments FM w/PF/DF Joint Mobilizations 5 Joint navicular & cuneiforms Direction med lat FM Comments w/supination 3 Joint talar Direction AP, distraction Comments FM in DF 1 Joint calcaneal Direction distraction, tilt Comments FM in DF PT-OP-R Modalities Start: 02/03/18 05:41 Freq: Status: Active Protocol: Document 03/03/18 14:30 [facility] (Rec: 03/03/18 15:25 [facility] [id number]) Hot Pack/Cold Pack Treatment Ice Massage Patient Position Prone Comments ice massage to B achilles tendon PT-OP-T Assessment and Plan Start: 02/03/18 05:41 Freq: Status: Active Protocol: Document 03/03/18 14:30 [facility] (Rec: 03/03/18 15:25 [facility] [id number]) Physical Therapy Assessment Goals Four Impairment pain with running > 5 miles Group Home Goal (LTG) With manual therapy treatments , kinesiotaping, modalities, and self care Lilliam is able to return to running without pain Three Impairment Decreased stride length and tightness of the L>R iliopsoas and hamstring [employer]eter Goal (LTG) Improve length of the iliopsoas and hamstring on the left to improve stride length decreasing pull on the left SI joint and decreasing strain to the left achilles with running Two Impairment scar tissue nodule noted on the achilles tendon B Short Term Goal (STG) Lilliam is instructed in self TFM to decrease scar tissue at the achilles and help improve tensile strength One Impairment Decreased flexibility of the gastroc/soleus complex L>R Short Term Goal (STG) Lilliam is educated in a home program of flexibility training for the gastroc/ soleus musculature STG Duration 6 weeks Assessment Summary Assessment Pt has cont improvement of soft tissue of calf. Challenge into core & glutes w/new exercises. Physical Therapy Plan Frequency and Duration Frequency of Treatment 2x/Week Duration of Treatment 8 weeks Plan of Care Start Date 01/30/18 Plan of Care End Date 03/27/18 Next Visit Focus/Plan Next Note Type Treatment Note Next Visit Plan cuboid, cuneiform mobs; Assess pelvis & follow sciatic pathway (possible dural tension for coccyx or pelvic dysfunction)
--- NOTE | 2018-03-19 14:45 | PT.OTN ---
Current Diagnoses Achilles tendinitis, unspecified leg (03/19/18) Physical Therapy Treatment Note PT-OP-A Visit Information Start: 02/03/18 05:41 Freq: Status: Active Protocol: Document 03/19/18 12:16 [facility] (Rec: 03/19/18 14:45 [facility] [id number]) Out-Patient Physical Therapy Visit Information Visit Information Visit Type Treatment Note Visit Note Pt late Visit Start Time 12:35 Visit Stop Time 13:00 Total Visit Minutes 25 Visit Number 8 PT-OP-B Current Condition Start: 02/03/18 05:41 Freq: Status: Active Protocol: Document 01/30/18 15:15 [facility] (Rec: 02/03/18 06:08 [facility] [email or web address]) Current Condition History of Current Condition Onset Date 1 year ago Current Complaints achilles pain left greater than right made worse with long distance running History of Current Condition 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 This progressed to effect her achilles tendon and felt acute in June. Lilliam notes she took a month off of running due to her pain. She then began training for a 50 k run in october. She was able to finish the run but she notes she could barely walk following. She is currently running approximately 15-20 miles a week now which is half of what she normally runs. She reports she has to start out really slow for her first few miles and then pain can begin after 5 miles. Treatment Goals Patient/Caregiver Goals Lilliam's goals include continuing to run without pain and to learn ways to manage her symptoms Current Functional Impairments (Reported) Functional Limitations- Recreation/ limited in running greater Hobbies than 5 miles at a time PT-OP-C Subjective Start: 02/03/18 05:41 Freq: Status: Active Protocol: Document 03/19/18 12:16 [facility] (Rec: 03/19/18 14:45 [facility] [id number]) OP-PT Subjective Patient Comments Patient Comments Pt reports she has run 2x and hiked up [place] since she last was seen. Notes achilles were feeling good, but has still been feeling the proximal HS pain/fatigue feeling. Reports she feels like the superfeet really help . PT-OP-F Manual Assessment Start: 02/03/18 05:41 Freq: Status: Active Protocol: Document 01/30/18 15:15 [facility] (Rec: 02/03/18 06:08 [facility] [email or web address]) Manual Assessments Soft Tissue Assessment Soft Tissue Mobility Assessment tightness in the left greater than right gastroc and palpable nodule on the medial aspect of bilateral achilles Left>Right left iliopsoas tightness, + nirav test left hamstring tightness SLR 60 deg Joint Mobility Assessment Joint Mobility Assessment + ALSR on the left for SI joint instability LEft leg longer in supine PT-OP-J Posture/Palpation/Skin Start: 02/03/18 05:41 Freq: Status: Active Protocol: Document 01/30/18 15:15 [facility] (Rec: 02/03/18 06:08 [facility] [email or web address]) Palpation Assessment Location Two Palpation Location gastroc and soleus Palpation Findings Soft Tissue Tightness One Palpation Location Bilateral achilles tendons L>R Palpation Findings Tenderness Palpation Details palpable nodule felt on the medial aspect of the achilles tendon left greater than right with tenderness PT-OP-K Range of Motion Start: 02/03/18 05:41 Freq: Status: Active Protocol: Document 01/30/18 15:15 [facility] (Rec: 02/03/18 06:08 [facility] [email or web address]) Ankle and Foot Goniometric Range of Motion Ankle and Foot Measured in Degrees Right Testing Position Prone Dorsiflexion with Knee Flexed 10 Dorsiflexion with Knee Extended 8 Left Ankle/Foot ROM WFL No Testing Position Prone Dorsiflexion with Knee Flexed 8 Dorsiflexion with Knee Extended 5 PT-OP-Q Treatments Start: 02/03/18 05:41 Freq: Status: Active Protocol: Document 03/19/18 12:16 [facility] (Rec: 03/19/18 14:45 [facility] [id number]) Therapeutic Exercises Supine Exercises 2 Supine Exercise Name abdominal series: flex & diagonal Side bilateral Manual Therapy Treatment Soft Tissue Mobilization 4 Body Location proximal HS Comments between semitendinosis & biceps femoris w/ knee flex 2 Body Location gastroc, soleus, tibialis posterior MFR Body Position Prone & standing Comments circumfrential FM & along mm borders 1 Body Location achilles tendon B Mobilization Type Rolling Sustained Pressure Intensity/Depth Moderate Body Position Prone Comments FM w/PF/DF Joint Mobilizations 4 Joint hip Direction on axis IR FM L Comments neuro re edu for end range 2 Joint sacrum Direction UPA R FM w/knee flex PT-OP-R Modalities Start: 02/03/18 05:41 Freq: Status: Active Protocol: Document 03/03/18 14:30 [facility] (Rec: 03/03/18 15:25 [facility] [email or web address]) Hot Pack/Cold Pack Treatment Ice Massage Patient Position Prone Comments ice massage to B achilles tendon PT-OP-T Assessment and Plan Start: 02/03/18 05:41 Freq: Status: Active Protocol: Document 03/19/18 12:16 [facility] (Rec: 03/19/18 14:45 [facility] [id number]) Physical Therapy Assessment Goals Four Impairment pain with running > 5 miles [employer]dc Goal (LTG) With manual therapy treatments , kinesiotaping, modalities, and self care Lilliam is able to return to running without pain Three Impairment Decreased stride length and tightness of the L>R iliopsoas and hamstring 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 (LTG) Improve length of the iliopsoas and hamstring on the left to improve stride length decreasing pull on the left SI joint and decreasing strain to the left achilles with running Two Impairment scar tissue nodule noted on the achilles tendon B Short Term Goal (STG) Lilliam is instructed in self TFM to decrease scar tissue at the achilles and help improve tensile strength One Impairment Decreased flexibility of the gastroc/soleus complex L>R Short Term Goal (STG) Lilliam is educated in a home program of flexibility training for the gastroc/ soleus musculature STG Duration 6 weeks Assessment Summary Assessment Pt is improving with calf & achilles mobility, but still has mild restrictions B. Cont mild swelling over middle of achilles, but appears to be getting smaller. Physical Therapy Plan Frequency and Duration Frequency of Treatment 2x/Week Duration of Treatment 8 weeks Plan of Care Start Date 01/30/18 Plan of Care End Date 03/27/18 Next Visit Focus/Plan Next Note Type Progress Note Next Visit Plan Cont to work on foot and calf mobility & pelvis mobility
--- NOTE | 2018-03-26 14:21 | PT.OTN ---
Current Diagnoses Achilles tendinitis, unspecified leg (03/26/18) Physical Therapy Treatment Note PT-OP-A Visit Information Start: 02/03/18 05:41 Freq: Status: Active Protocol: Document 03/26/18 14:05 [facility] (Rec: 03/26/18 14:19 [facility] [email or web address]) Out-Patient Physical Therapy Visit Information Visit Information Visit Type Treatment Note Visit Note Pt late Visit Start Time 12:18 Visit Stop Time 13:00 Total Visit Minutes 42 Visit Number 9 PT-OP-B Current Condition Start: 02/03/18 05:41 Freq: Status: Active Protocol: Document 01/30/18 15:15 [facility] (Rec: 02/03/18 06:08 [facility] [email or web address]) Current Condition History of Current Condition Onset Date 1 year ago Current Complaints achilles pain left greater than right made worse with long distance running History of Current Condition 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 This progressed to effect her achilles tendon and felt acute in June. Lilliam notes she took a month off of running due to her pain. She then began training for a 50 k run in october. She was able to finish the run but she notes she could barely walk following. She is currently running approximately 15-20 miles a week now which is half of what she normally runs. She reports she has to start out really slow for her first few miles and then pain can begin after 5 miles. Treatment Goals Patient/Caregiver Goals Lilliam's goals include continuing to run without pain and to learn ways to manage her symptoms Current Functional Impairments (Reported) Functional Limitations- Recreation/ limited in running greater Hobbies than 5 miles at a time PT-OP-C Subjective Start: 02/03/18 05:41 Freq: Status: Active Protocol: Document 03/26/18 14:05 [facility] (Rec: 03/26/18 14:19 [facility] [email or web address]) OP-PT Subjective Patient Comments Patient Comments Pt just went for a run and reports no pain at this time. PT-OP-F Manual Assessment Start: 02/03/18 05:41 Freq: Status: Active Protocol: Document 01/30/18 15:15 [facility] (Rec: 02/03/18 06:08 [facility] [email or web address]) Manual Assessments Soft Tissue Assessment Soft Tissue Mobility Assessment tightness in the left greater than right gastroc and palpable nodule on the medial aspect of bilateral achilles Left>Right left iliopsoas tightness, + nirav test left hamstring tightness SLR 60 deg Joint Mobility Assessment Joint Mobility Assessment + ALSR on the left for SI joint instability LEft leg longer in supine PT-OP-J Posture/Palpation/Skin Start: 02/03/18 05:41 Freq: Status: Active Protocol: Document 01/30/18 15:15 [facility] (Rec: 02/03/18 06:08 [facility] [email or web address]) Palpation Assessment Location Two Palpation Location gastroc and soleus Palpation Findings Soft Tissue Tightness One Palpation Location Bilateral achilles tendons L>R Palpation Findings Tenderness Palpation Details palpable nodule felt on the medial aspect of the achilles tendon left greater than right with tenderness PT-OP-K Range of Motion Start: 02/03/18 05:41 Freq: Status: Active Protocol: Document 01/30/18 15:15 [facility] (Rec: 02/03/18 06:08 [facility] [email or web address]) Ankle and Foot Goniometric Range of Motion Ankle and Foot Measured in Degrees Right Testing Position Prone Dorsiflexion with Knee Flexed 10 Dorsiflexion with Knee Extended 8 Left Ankle/Foot ROM WFL No Testing Position Prone Dorsiflexion with Knee Flexed 8 Dorsiflexion with Knee Extended 5 PT-OP-M Strength Start: 02/03/18 05:41 Freq: Status: Active Protocol: Document 03/26/18 14:05 [facility] (Rec: 03/26/18 14:21 [facility] [email or web address]) Hip Strength Hip Manual Muscle Testing Right Flexion (L2) 5 Normal Extension (S1) 4+ Good+ Abduction 4+ Good+ External Rotation 5 Normal Internal Rotation 4+ Good+ Left Flexion (L2) 4+ Good+ Extension (S1) 4+ Good+ Abduction 5 Normal External Rotation 4 Good Internal Rotation 4 Good Knee Strength Knee Manual Muscle Testing Right Flexion (S2) 5 Normal Extension (L3) 5 Normal Left Flexion (S2) 5 Normal Extension (L3) 5 Normal Ankle/Foot Strength Ankle and Foot Manual Muscle Testing Right Dorsiflexion (L4) 5 Normal Plantarflexion (S1) 5 Normal Inversion 5 Normal Eversion (S1) 5 Normal Left Dorsiflexion (L4) 5 Normal Plantarflexion (S1) 5 Normal Inversion 5 Normal Eversion (S1) 5 Normal Comments tension in achilles after 20 calf raises PT-OP-Q Treatments Start: 02/03/18 05:41 Freq: Status: Active Protocol: Document 03/26/18 14:05 [facility] (Rec: 03/26/18 14:19 [facility] [email or web address]) Manual Therapy Treatment Soft Tissue Mobilization 5 Body Location Visceral L to R FM 2 Body Location gastroc, soleus, tibialis posterior MFR Body Position Prone & standing Comments circumfrential FM & along mm borders 1 Body Location achilles tendon B Mobilization Type Rolling Sustained Pressure Intensity/Depth Moderate Body Position Prone Comments FM w/PF/DF Joint Mobilizations 4 Joint hip Direction on axis IR & ER FM L Comments neuro re edu for end range 2 Joint sacrum Direction UPA R FM w/knee flex PT-OP-R Modalities Start: 02/03/18 05:41 Freq: Status: Active Protocol: Document 03/03/18 14:30 [facility] (Rec: 03/03/18 15:25 [facility] [email or web address]) Hot Pack/Cold Pack Treatment Ice Massage Patient Position Prone Comments ice massage to B achilles tendon PT-OP-T Assessment and Plan Start: 02/03/18 05:41 Freq: Status: Active Protocol: Document 03/26/18 14:05 [facility] (Rec: 03/26/18 14:19 [facility] [email or web address]) Physical Therapy Assessment Goals Four Impairment pain with running > 5 miles Longterm Goal (LTG) With manual therapy treatments , kinesiotaping, modalities, and self care Lilliam is able to return to running without pain Three Impairment Decreased stride length and tightness of the L>R iliopsoas and hamstring Phthalic Acid Purifier Goal (LTG) Improve length of the iliopsoas and hamstring on the left to improve stride length decreasing pull on the left SI joint and decreasing strain to the left achilles with running Two Impairment scar tissue nodule noted on the achilles tendon B Short Term Goal (STG) Lilliam is instructed in self TFM to decrease scar tissue at the achilles and help improve tensile strength One Impairment Decreased flexibility of the gastroc/soleus complex L>R Short Term Goal (STG) Lilliam is educated in a home program of flexibility training for the gastroc/ soleus musculature STG Duration 6 weeks Assessment Summary Assessment w/SLR testing, pt had inc tension into L abdomen on L side w/tightness in her occasional L buttock pain area . Pt had significant L to R viseral tigthness that reproduced tightness in post thigh w/ gradual SLR. Pt has greater weakness of neutral foot position on L side than R . Able to do 20 heel raises on R without pain or sensation in achilles, whereas L side pt had sensation in L achilles. Physical Therapy Plan Frequency and Duration Frequency of Treatment 2x/Week Duration of Treatment 8 weeks Plan of Care Start Date 03/26/18 Plan of Care End Date 05/26/18 Therapeutic Interventions Therapeutic Interventions Aquatic Therapy Balance Training Gait Training Home Exercise Program Joint Mobilizations Manual Therapy Soft Tissue Mobilization Taping Therapeutic Activities Therapeutic Exercises Modalities Cold Pack/Ice Massage Electric Stimulation Hot Packs Ultrasound Other Therapeutic Interventions visceral mobilization & treatment of pelvis for L post thigh/buttock pain Next Visit Focus/Plan Next Note Type Treatment Note Next Visit Plan Cont to work on foot and calf mobility & pelvis mobility & visceral mobility
--- NOTE | 2018-03-26 14:21 | PT.OPPOC ---
Current Diagnoses Achilles tendinitis, unspecified leg (03/26/18) Provider Visit Care Team Role Provider Type Alisha Dorsey MD Family Provider Physician Specialty: SUPERVISOR OF INSTRUCTION Address: [address] [place] [address], [id number] Email: [email or web address] Airsteo Oliva MD Attending Provider Physician Primary Care Provider Specialty: Family Practice Address: [address] [place] [address], [id number] Email: [email or web address] Plan Of Care PT-OP-T Assessment and Plan Start: 02/03/18 05:41 Freq: Status: Active Protocol: Document 03/26/18 14:05 [facility] (Rec: 03/26/18 14:19 [facility] [email or web address]) Physical Therapy Assessment Goals Four Impairment pain with running > 5 miles Marketing Automation Manager Goal (LTG) With manual therapy treatments , kinesiotaping, modalities, and self care Lilliam is able to return to running without pain Three Impairment Decreased stride length and tightness of the L>R iliopsoas and hamstring Marketing Automation Manager Goal (LTG) Improve length of the iliopsoas and hamstring on the left to improve stride length decreasing pull on the left SI joint and decreasing strain to the left achilles with running Two Impairment scar tissue nodule noted on the achilles tendon B Short Term Goal (STG) Lilliam is instructed in self TFM to decrease scar tissue at the achilles and help improve tensile strength One Impairment Decreased flexibility of the gastroc/soleus complex L>R Short Term Goal (STG) Lilliam is educated in a home program of flexibility training for the gastroc/ soleus musculature STG Duration 6 weeks Assessment Summary Assessment w/SLR testing, pt had inc tension into L abdomen on L side w/tightness in her occasional L buttock pain area . Pt had significant L to R viseral tigthness that reproduced tightness in post thigh w/ gradual SLR. Pt has greater weakness of neutral foot position on L side than R . Able to do 20 heel raises on R without pain or sensation in achilles, whereas L side pt had sensation in L achilles. Physical Therapy Plan Frequency and Duration Frequency of Treatment 2x/Week Duration of Treatment 8 weeks Plan of Care Start Date 03/26/18 Plan of Care End Date 05/26/18 Therapeutic Interventions Therapeutic Interventions Aquatic Therapy Balance Training Gait Training Home Exercise Program Joint Mobilizations Manual Therapy Soft Tissue Mobilization Taping Therapeutic Activities Therapeutic Exercises Modalities Cold Pack/Ice Massage Electric Stimulation Hot Packs Ultrasound Other Therapeutic Interventions visceral mobilization & treatment of pelvis for L post thigh/buttock pain Next Visit Focus/Plan Next Note Type Treatment Note Next Visit Plan Cont to work on foot and calf mobility & pelvis mobility & visceral mobility Plan of Care Dates Plan of Care Start Date 03/26/18 Plan of Care End Date 05/26/18 Please Sign and Return: I have reviewed this Plan of Care and certify that the skilled therapy services above are required to meet the patient?s needs. Physician Signature Date Printed Name and Credentials Clinical Instructor Signature Printed Name and Credentials
--- NOTE | 2018-04-23 14:36 | PT.OTN ---
Current Diagnoses Achilles tendinitis, unspecified leg (04/22/18) Physical Therapy Treatment Note PT-OP-A Visit Information Start: 02/03/18 05:41 Freq: Status: Active Protocol: Document 04/22/18 11:15 [facility] (Rec: 04/23/18 14:35 [facility] [email or web address]) Out-Patient Physical Therapy Visit Information Visit Information Visit Type Progress Note Visit Start Time 11:15 Visit Stop Time 12:00 Total Visit Minutes 45 Visit Number 10 Evaluation Information Evaluation Date 01/30/18 PT-OP-B Current Condition Start: 02/03/18 05:41 Freq: Status: Active Protocol: Document 01/30/18 15:15 [facility] (Rec: 02/03/18 06:08 [facility] [email or web address]) Current Condition History of Current Condition Onset Date 1 year ago Current Complaints achilles pain left greater than right made worse with long distance running History of Current Condition 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 This progressed to effect her achilles tendon and felt acute in June. Lilliam notes she took a month off of running due to her pain. She then began training for a 50 k run in october. She was able to finish the run but she notes she could barely walk following. She is currently running approximately 15-20 miles a week now which is half of what she normally runs. She reports she has to start out really slow for her first few miles and then pain can begin after 5 miles. Treatment Goals Patient/Caregiver Goals Lilliam's goals include continuing to run without pain and to learn ways to manage her symptoms Current Functional Impairments (Reported) Functional Limitations- Recreation/ limited in running greater Hobbies than 5 miles at a time PT-OP-C Subjective Start: 02/03/18 05:41 Freq: Status: Active Protocol: Document 04/22/18 11:15 [facility] (Rec: 04/23/18 14:35 [facility] [email or web address]) OP-PT Subjective Patient Comments Patient Comments Doing better overall andhas been increasing her milage. She ran 10 miles in the trails saturday and has been trying to stretch. Super feet are helping Patient Reported Progress Improving PT-OP-F Manual Assessment Start: 02/03/18 05:41 Freq: Status: Active Protocol: Document 01/30/18 15:15 [facility] (Rec: 02/03/18 06:08 [facility] [email or web address]) Manual Assessments Soft Tissue Assessment Soft Tissue Mobility Assessment tightness in the left greater than right gastroc and palpable nodule on the medial aspect of bilateral achilles Left>Right left iliopsoas tightness, + nirav test left hamstring tightness SLR 60 deg Joint Mobility Assessment Joint Mobility Assessment + ALSR on the left for SI joint instability LEft leg longer in supine PT-OP-J Posture/Palpation/Skin Start: 02/03/18 05:41 Freq: Status: Active Protocol: Document 01/30/18 15:15 [facility] (Rec: 02/03/18 06:08 [facility] [email or web address]) Palpation Assessment Location Two Palpation Location gastroc and soleus Palpation Findings Soft Tissue Tightness One Palpation Location Bilateral achilles tendons L>R Palpation Findings Tenderness Palpation Details palpable nodule felt on the medial aspect of the achilles tendon left greater than right with tenderness PT-OP-K Range of Motion Start: 02/03/18 05:41 Freq: Status: Active Protocol: Document 01/30/18 15:15 [facility] (Rec: 02/03/18 06:08 [facility] [email or web address]) Ankle and Foot Goniometric Range of Motion Ankle and Foot Measured in Degrees Right Testing Position Prone Dorsiflexion with Knee Flexed 10 Dorsiflexion with Knee Extended 8 Left Ankle/Foot ROM WFL No Testing Position Prone Dorsiflexion with Knee Flexed 8 Dorsiflexion with Knee Extended 5 PT-OP-M Strength Start: 02/03/18 05:41 Freq: Status: Active Protocol: Document 03/26/18 14:05 [facility] (Rec: 03/26/18 14:21 [facility] [email or web address]) Hip Strength Hip Manual Muscle Testing Right Flexion (L2) 5 Normal Extension (S1) 4+ Good+ Abduction 4+ Good+ External Rotation 5 Normal Internal Rotation 4+ Good+ Left Flexion (L2) 4+ Good+ Extension (S1) 4+ Good+ Abduction 5 Normal External Rotation 4 Good Internal Rotation 4 Good Knee Strength Knee Manual Muscle Testing Right Flexion (S2) 5 Normal Extension (L3) 5 Normal Left Flexion (S2) 5 Normal Extension (L3) 5 Normal Ankle/Foot Strength Ankle and Foot Manual Muscle Testing Right Dorsiflexion (L4) 5 Normal Plantarflexion (S1) 5 Normal Inversion 5 Normal Eversion (S1) 5 Normal Left Dorsiflexion (L4) 5 Normal Plantarflexion (S1) 5 Normal Inversion 5 Normal Eversion (S1) 5 Normal Comments tension in achilles after 20 calf raises PT-OP-Q Treatments Start: 02/03/18 05:41 Freq: Status: Active Protocol: Document 04/22/18 11:15 [facility] (Rec: 04/23/18 14:35 [facility] [email or web address]) Therapeutic Exercises Other Exercises 2 Other Exercise Name iliopsoas stretch in lunge position and half kneeling Manual Therapy Treatment Soft Tissue Mobilization 2 Body Location gastroc, soleus, tibialis posterior MFR Body Position Prone Comments circumfrential FM & along mm borders 1 Body Location achilles tendon B Mobilization Type Rolling Sustained Pressure Intensity/Depth Moderate Body Position Prone Comments FM w/PF/DF PT-OP-R Modalities Start: 02/03/18 05:41 Freq: Status: Active Protocol: Document 04/23/18 14:35 [facility] (Rec: 04/23/18 14:36 [facility] [email or web address]) Ultrasound Therapy Treatment left achilles Treatment Duration (minutes) 8 Patient Position Prone Coupling Medium Ultrasound Gel Applicator Size (cm2) 5 Mode Setting Continuous Duty Cycle 100% Intensity Setting (w/cm2) 1.2 PT-OP-T Assessment and Plan Start: 02/03/18 05:41 Freq: Status: Active Protocol: Document 04/22/18 11:15 [facility] (Rec: 04/23/18 14:35 [facility] [email or web address]) Physical Therapy Assessment Progress Towards Goals Progress Towards Goals Progressing Toward Goals Assessment Summary Assessment Lilliam is making good progress towards her goals. SHe has been working on a stretching routine and with therapy has been able to increase her miles back up to 10. SHe will be running 15 miles this weekend. We are working to increase her stride length with stretches and she feels it is better. She would benefit from continued PT Physical Therapy Plan Frequency and Duration Frequency of Treatment 2x/Week Duration of Treatment 8 weeks Plan of Care Start Date 03/26/18 Plan of Care End Date 05/26/18 Therapeutic Interventions Therapeutic Interventions Aquatic Therapy Balance Training Gait Training Home Exercise Program Joint Mobilizations Manual Therapy Soft Tissue Mobilization Taping Therapeutic Activities Therapeutic Exercises Modalities Cold Pack/Ice Massage Electric Stimulation Hot Packs Ultrasound Other Therapeutic Interventions visceral mobilization & treatment of pelvis for L post thigh/buttock pain Next Visit Focus/Plan Next Note Type Treatment Note Next Visit Plan Cont to work on foot and calf mobility & pelvis mobility & visceral mobility
--- NOTE | 2018-04-30 15:53 | PT.OTN ---
Current Diagnoses Achilles tendinitis, unspecified leg (04/30/18) Physical Therapy Treatment Note PT-OP-A Visit Information Start: 02/03/18 05:41 Freq: Status: Active Protocol: Document 04/30/18 13:48 [facility] (Rec: 04/30/18 14:32 [facility] [id number]) Out-Patient Physical Therapy Visit Information Visit Information Visit Type Treatment Note Visit Start Time 13:45 Visit Stop Time 14:25 Total Visit Minutes 40 Visit Number 11 PT-OP-B Current Condition Start: 02/03/18 05:41 Freq: Status: Active Protocol: Document 01/30/18 15:15 [facility] (Rec: 02/03/18 06:08 [facility] [email or web address]) Current Condition History of Current Condition Onset Date 1 year ago Current Complaints achilles pain left greater than right made worse with long distance running History of Current Condition 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 This progressed to effect her achilles tendon and felt acute in June. Lilliam notes she took a month off of running due to her pain. She then began training for a 50 k run in october. She was able to finish the run but she notes she could barely walk following. She is currently running approximately 15-20 miles a week now which is half of what she normally runs. She reports she has to start out really slow for her first few miles and then pain can begin after 5 miles. Treatment Goals Patient/Caregiver Goals Lilliam's goals include continuing to run without pain and to learn ways to manage her symptoms Current Functional Impairments (Reported) Functional Limitations- Recreation/ limited in running greater Hobbies than 5 miles at a time PT-OP-C Subjective Start: 02/03/18 05:41 Freq: Status: Active Protocol: Document 04/30/18 13:48 [facility] (Rec: 04/30/18 14:32 [facility] [id number]) OP-PT Subjective Patient Comments Patient Comments Pt reports achilles have been slightly tight. [place] in [employer] [place] and had slight tightness L>R. PT-OP-F Manual Assessment Start: 02/03/18 05:41 Freq: Status: Active Protocol: Document 01/30/18 15:15 [facility] (Rec: 02/03/18 06:08 [facility] [email or web address]) Manual Assessments Soft Tissue Assessment Soft Tissue Mobility Assessment tightness in the left greater than right gastroc and palpable nodule on the medial aspect of bilateral achilles Left>Right left iliopsoas tightness, + nirav test left hamstring tightness SLR 60 deg Joint Mobility Assessment Joint Mobility Assessment + ALSR on the left for SI joint instability LEft leg longer in supine PT-OP-J Posture/Palpation/Skin Start: 02/03/18 05:41 Freq: Status: Active Protocol: Document 01/30/18 15:15 [facility] (Rec: 02/03/18 06:08 [facility] [email or web address]) Palpation Assessment Location Two Palpation Location gastroc and soleus Palpation Findings Soft Tissue Tightness One Palpation Location Bilateral achilles tendons L>R Palpation Findings Tenderness Palpation Details palpable nodule felt on the medial aspect of the achilles tendon left greater than right with tenderness PT-OP-K Range of Motion Start: 02/03/18 05:41 Freq: Status: Active Protocol: Document 01/30/18 15:15 [facility] (Rec: 02/03/18 06:08 [facility] [email or web address]) Ankle and Foot Goniometric Range of Motion Ankle and Foot Measured in Degrees Right Testing Position Prone Dorsiflexion with Knee Flexed 10 Dorsiflexion with Knee Extended 8 Left Ankle/Foot ROM WFL No Testing Position Prone Dorsiflexion with Knee Flexed 8 Dorsiflexion with Knee Extended 5 PT-OP-M Strength Start: 02/03/18 05:41 Freq: Status: Active Protocol: Document 03/26/18 14:05 [facility] (Rec: 03/26/18 14:21 [facility] [email or web address]) Hip Strength Hip Manual Muscle Testing Right Flexion (L2) 5 Normal Extension (S1) 4+ Good+ Abduction 4+ Good+ External Rotation 5 Normal Internal Rotation 4+ Good+ Left Flexion (L2) 4+ Good+ Extension (S1) 4+ Good+ Abduction 5 Normal External Rotation 4 Good Internal Rotation 4 Good Knee Strength Knee Manual Muscle Testing Right Flexion (S2) 5 Normal Extension (L3) 5 Normal Left Flexion (S2) 5 Normal Extension (L3) 5 Normal Ankle/Foot Strength Ankle and Foot Manual Muscle Testing Right Dorsiflexion (L4) 5 Normal Plantarflexion (S1) 5 Normal Inversion 5 Normal Eversion (S1) 5 Normal Left Dorsiflexion (L4) 5 Normal Plantarflexion (S1) 5 Normal Inversion 5 Normal Eversion (S1) 5 Normal Comments tension in achilles after 20 calf raises PT-OP-Q Treatments Start: 02/03/18 05:41 Freq: Status: Active Protocol: Document 04/30/18 13:48 [facility] (Rec: 04/30/18 14:32 [facility] [id number]) Manual Therapy Treatment Soft Tissue Mobilization 5 Body Location Visceral L to R FM 2 Body Location gastroc, soleus, tibialis posterior MFR Body Position Prone Comments circumfrential FM & along mm borders 1 Body Location achilles tendon B Mobilization Type Rolling Sustained Pressure Intensity/Depth Moderate Body Position Prone Comments FM w/PF/DF Joint Mobilizations 4 Joint hip Direction on axis IR & ER FM L Comments neuro re edu for end range Self-Care/Home Management Treatment Activities Self-Care/Home Management Activities edu on warm up/cool down & dynamic vs static stretching. Importance of equalizing flexibility between sides. PT-OP-R Modalities Start: 02/03/18 05:41 Freq: Status: Active Protocol: Document 04/22/18 14:35 [facility] (Rec: 04/23/18 14:36 [facility] [email or web address]) Ultrasound Therapy Treatment left achilles Treatment Duration (minutes) 8 Patient Position Prone Coupling Medium Ultrasound Gel Applicator Size (cm2) 5 Mode Setting Continuous Duty Cycle 100% Intensity Setting (w/cm2) 1.2 PT-OP-T Assessment and Plan Start: 02/03/18 05:41 Freq: Status: Active Protocol: Document 04/30/18 13:48 [facility] (Rec: 04/30/18 14:32 [facility] [id number]) Physical Therapy Assessment Goals Four Impairment pain with running > 5 miles [place] [employer] Goal (LTG) With manual therapy treatments , kinesiotaping, modalities, and self care Lilliam is able to return to running without pain Three Impairment Decreased stride length and tightness of the L>R iliopsoas and hamstring Nursing Home Goal (LTG) Improve length of the iliopsoas and hamstring on the left to improve stride length decreasing pull on the left SI joint and decreasing strain to the left achilles with running Two Impairment scar tissue nodule noted on the achilles tendon B Short Term Goal (STG) Lilliam is instructed in self TFM to decrease scar tissue at the achilles and help improve tensile strength One Impairment Decreased flexibility of the gastroc/soleus complex L>R Short Term Goal (STG) Lilliam is educated in a home program of flexibility training for the gastroc/ soleus musculature STG Duration 6 weeks Assessment Summary Assessment Improving gastroc mobility and achilles mobility. Inc HS flexibilty after c/r Physical Therapy Plan Frequency and Duration Frequency of Treatment 2x/Week Duration of Treatment 8 weeks Plan of Care Start Date 03/26/18 Plan of Care End Date 05/26/18 Next Visit Focus/Plan Next Note Type Treatment Note Next Visit Plan Cont to work on foot and calf mobility & pelvis mobility & visceral mobility
--- NOTE | 2018-05-07 15:49 | PT.OTN ---
Current Diagnoses Achilles tendinitis, unspecified leg (05/07/18) Physical Therapy Treatment Note PT-OP-A Visit Information Start: 02/03/18 05:41 Freq: Status: Active Protocol: Document 05/07/18 15:32 [facility] (Rec: 05/07/18 15:49 [facility] [email or web address]) Out-Patient Physical Therapy Visit Information Visit Information Visit Type Treatment Note Visit Start Time 09:45 Visit Stop Time 10:30 Total Visit Minutes 45 Visit Number 12 PT-OP-B Current Condition Start: 02/03/18 05:41 Freq: Status: Active Protocol: Document 01/30/18 15:15 [facility] (Rec: 02/03/18 06:08 [facility] [email or web address]) Current Condition History of Current Condition Onset Date 1 year ago Current Complaints achilles pain left greater than right made worse with long distance running History of Current Condition 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 This progressed to effect her achilles tendon and felt acute in June. Lilliam notes she took a month off of running due to her pain. She then began training for a 50 k run in october. She was able to finish the run but she notes she could barely walk following. She is currently running approximately 15-20 miles a week now which is half of what she normally runs. She reports she has to start out really slow for her first few miles and then pain can begin after 5 miles. Treatment Goals Patient/Caregiver Goals Lilliam's goals include continuing to run without pain and to learn ways to manage her symptoms Current Functional Impairments (Reported) Functional Limitations- Recreation/ limited in running greater Hobbies than 5 miles at a time PT-OP-C Subjective Start: 02/03/18 05:41 Freq: Status: Active Protocol: Document 05/07/18 15:32 [facility] (Rec: 05/07/18 15:49 [facility] [email or web address]) OP-PT Subjective Patient Comments Patient Comments Pt reports yesterday she was only able to do a short run d/ t pain in fibular head region. Reports pain in same area during 11 mile run today, but it diminished after about 4 miles. Reports achilles L>R sore now (about 1 hour after run). Pt reports soreness in buttocks region, but she attributes it to squats from yesterday. PT-OP-F Manual Assessment Start: 02/03/18 05:41 Freq: Status: Active Protocol: Document 01/30/18 15:15 [facility] (Rec: 02/03/18 06:08 [facility] [email or web address]) Manual Assessments Soft Tissue Assessment Soft Tissue Mobility Assessment tightness in the left greater than right gastroc and palpable nodule on the medial aspect of bilateral achilles Left>Right left iliopsoas tightness, + nirav test left hamstring tightness SLR 60 deg Joint Mobility Assessment Joint Mobility Assessment + ALSR on the left for SI joint instability LEft leg longer in supine PT-OP-J Posture/Palpation/Skin Start: 02/03/18 05:41 Freq: Status: Active Protocol: Document 01/30/18 15:15 [facility] (Rec: 02/03/18 06:08 [facility] [email or web address]) Palpation Assessment Location Two Palpation Location gastroc and soleus Palpation Findings Soft Tissue Tightness One Palpation Location Bilateral achilles tendons L>R Palpation Findings Tenderness Palpation Details palpable nodule felt on the medial aspect of the achilles tendon left greater than right with tenderness PT-OP-K Range of Motion Start: 02/03/18 05:41 Freq: Status: Active Protocol: Document 01/30/18 15:15 [facility] (Rec: 02/03/18 06:08 [facility] [email or web address]) Ankle and Foot Goniometric Range of Motion Ankle and Foot Measured in Degrees Right Testing Position Prone Dorsiflexion with Knee Flexed 10 Dorsiflexion with Knee Extended 8 Left Ankle/Foot ROM WFL No Testing Position Prone Dorsiflexion with Knee Flexed 8 Dorsiflexion with Knee Extended 5 PT-OP-M Strength Start: 02/03/18 05:41 Freq: Status: Active Protocol: Document 03/26/18 14:05 [facility] (Rec: 03/26/18 14:21 [facility] [email or web address]) Hip Strength Hip Manual Muscle Testing Right Flexion (L2) 5 Normal Extension (S1) 4+ Good+ Abduction 4+ Good+ External Rotation 5 Normal Internal Rotation 4+ Good+ Left Flexion (L2) 4+ Good+ Extension (S1) 4+ Good+ Abduction 5 Normal External Rotation 4 Good Internal Rotation 4 Good Knee Strength Knee Manual Muscle Testing Right Flexion (S2) 5 Normal Extension (L3) 5 Normal Left Flexion (S2) 5 Normal Extension (L3) 5 Normal Ankle/Foot Strength Ankle and Foot Manual Muscle Testing Right Dorsiflexion (L4) 5 Normal Plantarflexion (S1) 5 Normal Inversion 5 Normal Eversion (S1) 5 Normal Left Dorsiflexion (L4) 5 Normal Plantarflexion (S1) 5 Normal Inversion 5 Normal Eversion (S1) 5 Normal Comments tension in achilles after 20 calf raises PT-OP-Q Treatments Start: 02/03/18 05:41 Freq: Status: Active Protocol: Document 05/07/18 15:32 [facility] (Rec: 05/07/18 15:49 [facility] [email or web address]) Manual Therapy Treatment Soft Tissue Mobilization 3 Body Location fat pad Mobilization Type Sustained Pressure 2 Body Location gastroc, soleus, tibialis posterior MFR Body Position Prone Comments circumfrential FM & along mm borders 1 Body Location achilles tendon B Mobilization Type Rolling Sustained Pressure Intensity/Depth Moderate Body Position Prone Comments FM w/PF/DF Joint Mobilizations 3 Joint talar Direction distraction 1 Joint calcaneus Direction distraction, med & lat glide PT-OP-R Modalities Start: 02/03/18 05:41 Freq: Status: Active Protocol: Document 05/07/18 15:32 [facility] (Rec: 05/07/18 15:49 [facility] [email or web address]) Hot Pack/Cold Pack Treatment Ice Massage Location B achilles Treatment Duration (minutes) 5 PT-OP-T Assessment and Plan Start: 02/03/18 05:41 Freq: Status: Active Protocol: Document 05/07/18 15:32 [facility] (Rec: 05/07/18 15:49 [facility] [email or web address]) Physical Therapy Assessment Goals Four Impairment pain with running > 5 miles [facility] Goal (LTG) With manual therapy treatments , kinesiotaping, modalities, and self care Lilliam is able to return to running without pain Three Impairment Decreased stride length and tightness of the L>R iliopsoas and hamstring [facility] Goal (LTG) Improve length of the iliopsoas and hamstring on the left to improve stride length decreasing pull on the left SI joint and decreasing strain to the left achilles with running Two Impairment scar tissue nodule noted on the achilles tendon B Short Term Goal (STG) Lilliam is instructed in self TFM to decrease scar tissue at the achilles and help improve tensile strength One Impairment Decreased flexibility of the gastroc/soleus complex L>R Short Term Goal (STG) Lilliam is educated in a home program of flexibility training for the gastroc/ soleus musculature STG Duration 6 weeks Assessment Summary Assessment Pt is improving with distance she can run, but cont to have some tigthness in achilles after running. Pt had new pain which was likely d/t fibular mobility and fibular head and malleoi were mobilized. Physical Therapy Plan Frequency and Duration Frequency of Treatment 2x/Week Duration of Treatment 8 weeks Plan of Care Start Date 03/26/18 Plan of Care End Date 05/26/18 Next Visit Focus/Plan Next Note Type Treatment Note Next Visit Plan Work on talar glides, cuneiform & cuboid mobs
--- NOTE | 2018-05-09 13:46 | PT.OTN ---
Current Diagnoses Achilles tendinitis, unspecified leg (05/09/18) Physical Therapy Treatment Note PT-OP-A Visit Information Start: 02/03/18 05:41 Freq: Status: Active Protocol: Document 05/09/18 13:41 [facility] (Rec: 05/13/18 08:46 [facility] [id number]) Out-Patient Physical Therapy Visit Information Visit Information Visit Type Treatment Note Visit Start Time 12:15 Visit Stop Time 13:00 Total Visit Minutes 45 Visit Number 13 PT-OP-B Current Condition Start: 02/03/18 05:41 Freq: Status: Active Protocol: Document 01/30/18 15:15 [facility] (Rec: 02/03/18 06:08 [facility] [email or web address]) Current Condition History of Current Condition Onset Date 1 year ago Current Complaints achilles pain left greater than right made worse with long distance running History of Current Condition 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 This progressed to effect her achilles tendon and felt acute in June. Lilliam notes she took a month off of running due to her pain. She then began training for a 50 k run in october. She was able to finish the run but she notes she could barely walk following. She is currently running approximately 15-20 miles a week now which is half of what she normally runs. She reports she has to start out really slow for her first few miles and then pain can begin after 5 miles. Treatment Goals Patient/Caregiver Goals Lilliam's goals include continuing to run without pain and to learn ways to manage her symptoms Current Functional Impairments (Reported) Functional Limitations- Recreation/ limited in running greater Hobbies than 5 miles at a time PT-OP-C Subjective Start: 02/03/18 05:41 Freq: Status: Active Protocol: Document 05/09/18 13:41 [facility] (Rec: 05/13/18 08:46 [facility] [id number]) OP-PT Subjective Patient Comments Patient Comments Reports she ran today. No fibular pain or achilles pain. PT-OP-F Manual Assessment Start: 02/03/18 05:41 Freq: Status: Active Protocol: Document 01/30/18 15:15 [facility] (Rec: 02/03/18 06:08 [facility] [email or web address]) Manual Assessments Soft Tissue Assessment Soft Tissue Mobility Assessment tightness in the left greater than right gastroc and palpable nodule on the medial aspect of bilateral achilles Left>Right left iliopsoas tightness, + nirav test left hamstring tightness SLR 60 deg Joint Mobility Assessment Joint Mobility Assessment + ALSR on the left for SI joint instability LEft leg longer in supine PT-OP-J Posture/Palpation/Skin Start: 02/03/18 05:41 Freq: Status: Active Protocol: Document 01/30/18 15:15 [facility] (Rec: 02/03/18 06:08 [facility] [email or web address]) Palpation Assessment Location Two Palpation Location gastroc and soleus Palpation Findings Soft Tissue Tightness One Palpation Location Bilateral achilles tendons L>R Palpation Findings Tenderness Palpation Details palpable nodule felt on the medial aspect of the achilles tendon left greater than right with tenderness PT-OP-K Range of Motion Start: 02/03/18 05:41 Freq: Status: Active Protocol: Document 01/30/18 15:15 [facility] (Rec: 02/03/18 06:08 [facility] [email or web address]) Ankle and Foot Goniometric Range of Motion Ankle and Foot Measured in Degrees Right Testing Position Prone Dorsiflexion with Knee Flexed 10 Dorsiflexion with Knee Extended 8 Left Ankle/Foot ROM WFL No Testing Position Prone Dorsiflexion with Knee Flexed 8 Dorsiflexion with Knee Extended 5 PT-OP-M Strength Start: 02/03/18 05:41 Freq: Status: Active Protocol: Document 03/26/18 14:05 [facility] (Rec: 03/26/18 14:21 [facility] [email or web address]) Hip Strength Hip Manual Muscle Testing Right Flexion (L2) 5 Normal Extension (S1) 4+ Good+ Abduction 4+ Good+ External Rotation 5 Normal Internal Rotation 4+ Good+ Left Flexion (L2) 4+ Good+ Extension (S1) 4+ Good+ Abduction 5 Normal External Rotation 4 Good Internal Rotation 4 Good Knee Strength Knee Manual Muscle Testing Right Flexion (S2) 5 Normal Extension (L3) 5 Normal Left Flexion (S2) 5 Normal Extension (L3) 5 Normal Ankle/Foot Strength Ankle and Foot Manual Muscle Testing Right Dorsiflexion (L4) 5 Normal Plantarflexion (S1) 5 Normal Inversion 5 Normal Eversion (S1) 5 Normal Left Dorsiflexion (L4) 5 Normal Plantarflexion (S1) 5 Normal Inversion 5 Normal Eversion (S1) 5 Normal Comments tension in achilles after 20 calf raises PT-OP-Q Treatments Start: 02/03/18 05:41 Freq: Status: Active Protocol: Document 05/09/18 13:41 [facility] (Rec: 05/13/18 08:46 [facility] [id number]) Manual Therapy Treatment Soft Tissue Mobilization 3 Body Location fat pad Mobilization Type Sustained Pressure 2 Body Location gastroc, soleus, tibialis posterior MFR Body Position Prone Comments circumfrential FM & along mm borders 1 Body Location achilles tendon B Mobilization Type Rolling Sustained Pressure Intensity/Depth Moderate Body Position Prone Comments FM w/PF/DF Joint Mobilizations 3 Joint talar Direction distraction, med/lat glides 1 Joint calcaneus Direction distraction, med & lat glide PT-OP-R Modalities Start: 02/03/18 05:41 Freq: Status: Active Protocol: Document 05/07/18 15:32 [facility] (Rec: 05/07/18 15:49 [facility] [email or web address]) Hot Pack/Cold Pack Treatment Ice Massage Location B achilles Treatment Duration (minutes) 5 PT-OP-T Assessment and Plan Start: 02/03/18 05:41 Freq: Status: Active Protocol: Document 05/09/18 13:41 [facility] (Rec: 05/13/18 08:46 [facility] [id number]) Physical Therapy Assessment Goals Four Impairment pain with running > 5 miles [facility] Goal (LTG) With manual therapy treatments , kinesiotaping, modalities, and self care Lilliam is able to return to running without pain Three Impairment Decreased stride length and tightness of the L>R iliopsoas and hamstring Shelter Goal (LTG) Improve length of the iliopsoas and hamstring on the left to improve stride length decreasing pull on the left SI joint and decreasing strain to the left achilles with running Two Impairment scar tissue nodule noted on the achilles tendon B Short Term Goal (STG) Lilliam is instructed in self TFM to decrease scar tissue at the achilles and help improve tensile strength One Impairment Decreased flexibility of the gastroc/soleus complex L>R Short Term Goal (STG) Lilliam is educated in a home program of flexibility training for the gastroc/ soleus musculature STG Duration 6 weeks Assessment Summary Assessment Improved foot position with mobilizations. pt had improved soft tissue mobility upon presentation today. pt reminded not to inc mileage too fast and to cross train some days. Physical Therapy Plan Frequency and Duration Frequency of Treatment 2x/Week Duration of Treatment 8 weeks Plan of Care Start Date 03/26/18 Plan of Care End Date 05/26/18 Next Visit Focus/Plan Next Note Type Treatment Note Next Visit Plan Work on talar glides, cuneiform & cuboid mobs
--- NOTE | 2018-05-21 15:11 | PT.OTN ---
Current Diagnoses Achilles tendinitis, unspecified leg (05/21/18) Physical Therapy Treatment Note PT-OP-A Visit Information Start: 02/03/18 05:41 Freq: Status: Active Protocol: Document 05/21/18 15:04 [facility] (Rec: 05/21/18 15:11 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 This progressed to effect her achilles tendon and felt acute in June. Lilliam notes she took a month off of running due to her pain. She then began training for a 50 k run in october. She was able to finish the run but she notes she could barely walk following. She is currently running approximately 15-20 miles a week now which is half of what she normally runs. She reports she has to start out really slow for her first few miles and then pain can begin after 5 miles. Treatment Goals Patient/Caregiver Goals Lilliam's goals include continuing to run without pain and to learn ways to manage her symptoms Current Functional Impairments (Reported) Functional Limitations- Recreation/ limited in running greater Hobbies than 5 miles at a time PT-OP-C Subjective Start: 02/03/18 05:41 Freq: Status: Active Protocol: Document 05/21/18 15:04 [facility] (Rec: 05/21/18 15:11 [facility] [email or web address]) OP-PT Subjective Patient Comments Patient Comments Reports she did well with her hiking but they spent a lot of days in the car. When she got back yesterday and ran 6 miles she was frustrated because she had achilles pain. It was a road run and she warmed up less PT-OP-F Manual Assessment Start: 02/03/18 05:41 Freq: Status: Active Protocol: Document 01/30/18 15:15 [facility] (Rec: 02/03/18 06:08 [facility] [email or web address]) Manual Assessments Soft Tissue Assessment Soft Tissue Mobility Assessment tightness in the left greater than right gastroc and palpable nodule on the medial aspect of bilateral achilles Left>Right left iliopsoas tightness, + nirav test left hamstring tightness SLR 60 deg Joint Mobility Assessment Joint Mobility Assessment + ALSR on the left for SI joint instability LEft leg longer in supine PT-OP-J Posture/Palpation/Skin Start: 02/03/18 05:41 Freq: Status: Active Protocol: Document 01/30/18 15:15 [facility] (Rec: 02/03/18 06:08 [facility] [email or web address]) Palpation Assessment Location Two Palpation Location gastroc and soleus Palpation Findings Soft Tissue Tightness One Palpation Location Bilateral achilles tendons L>R Palpation Findings Tenderness Palpation Details palpable nodule felt on the medial aspect of the achilles tendon left greater than right with tenderness PT-OP-K Range of Motion Start: 02/03/18 05:41 Freq: Status: Active Protocol: Document 01/30/18 15:15 [facility] (Rec: 02/03/18 06:08 [facility] [email or web address]) Ankle and Foot Goniometric Range of Motion Ankle and Foot Measured in Degrees Right Testing Position Prone Dorsiflexion with Knee Flexed 10 Dorsiflexion with Knee Extended 8 Left Ankle/Foot ROM WFL No Testing Position Prone Dorsiflexion with Knee Flexed 8 Dorsiflexion with Knee Extended 5 PT-OP-M Strength Start: 02/03/18 05:41 Freq: Status: Active Protocol: Document 03/26/18 14:05 [facility] (Rec: 03/26/18 14:21 [facility] [email or web address]) Hip Strength Hip Manual Muscle Testing Right Flexion (L2) 5 Normal Extension (S1) 4+ Good+ Abduction 4+ Good+ External Rotation 5 Normal Internal Rotation 4+ Good+ Left Flexion (L2) 4+ Good+ Extension (S1) 4+ Good+ Abduction 5 Normal External Rotation 4 Good Internal Rotation 4 Good Knee Strength Knee Manual Muscle Testing Right Flexion (S2) 5 Normal Extension (L3) 5 Normal Left Flexion (S2) 5 Normal Extension (L3) 5 Normal Ankle/Foot Strength Ankle and Foot Manual Muscle Testing Right Dorsiflexion (L4) 5 Normal Plantarflexion (S1) 5 Normal Inversion 5 Normal Eversion (S1) 5 Normal Left Dorsiflexion (L4) 5 Normal Plantarflexion (S1) 5 Normal Inversion 5 Normal Eversion (S1) 5 Normal Comments tension in achilles after 20 calf raises PT-OP-Q Treatments Start: 02/03/18 05:41 Freq: Status: Active Protocol: Document 05/21/18 15:04 [facility] (Rec: 05/21/18 15:11 [facility] [email or web address]) Gait Training Gait Activity 3 Description running Comments Focus on arm swing with forward/back motion to prevent excessive trunk and pelvis rotations 1 Description SLS with alt knee drive Comments in mirror for post depression B 2 Description gait press at wall Comments focus on post depression L with knee drive R without pelvic rotation Manual Therapy Treatment Soft Tissue Mobilization 2 Body Location gastroc, soleus, tibialis posterior MFR Body Position Prone Comments circumfrential FM & along mm borders 1 Body Location achilles tendon B Mobilization Type Rolling Sustained Pressure Intensity/Depth Moderate Body Position Prone Comments FM w/PF/DF PT-OP-R Modalities Start: 02/03/18 05:41 Freq: Status: Active Protocol: Document 05/21/18 15:04 [facility] (Rec: 05/21/18 15:11 [facility] [email or web address]) Hot Pack/Cold Pack Treatment Ice Massage Location B achilles Treatment Duration (minutes) 6 PT-OP-T Assessment and Plan Start: 02/03/18 05:41 Freq: Status: Active Protocol: Document 05/21/18 15:04 [facility] (Rec: 05/21/18 15:11 [facility] [email or web address]) Physical Therapy Assessment Goals Four Impairment pain with running > 5 miles Volunteer Services Assistant Goal (LTG) With manual therapy treatments , kinesiotaping, modalities, and self care Lilliam is able to return to running without pain Three Impairment Decreased stride length and tightness of the L>R iliopsoas and hamstring Volunteer Services Assistant Goal (LTG) Improve length of the iliopsoas and hamstring on the left to improve stride length decreasing pull on the left SI joint and decreasing strain to the left achilles with running Two Impairment scar tissue nodule noted on the achilles tendon B Short Term Goal (STG) Lilliam is instructed in self TFM to decrease scar tissue at the achilles and help improve tensile strength One Impairment Decreased flexibility of the gastroc/soleus complex L>R Short Term Goal (STG) Lilliam is educated in a home program of flexibility training for the gastroc/ soleus musculature STG Duration 6 weeks Assessment Summary Assessment Pt improved with running form with change of arm swing. Pt had difficulty with 2 gait exercises with achieving appropriate post depression of pelvis on L side. Physical Therapy Plan Frequency and Duration Frequency of Treatment 2x/Week Duration of Treatment 8 weeks Plan of Care Start Date 03/26/18 Plan of Care End Date 05/26/18 Next Visit Focus/Plan Next Note Type Progress Note Next Visit Plan Work on talar glides, cuneiform & cuboid mobs; cont to work on running form
--- NOTE | 2018-05-27 07:35 | PT.OPPN ---
Current Diagnoses Achilles tendinitis, unspecified leg (05/27/18) Physical Therapy Progress Note PT-OP-A Visit Information Start: 02/03/18 05:41 Freq: Status: Active Protocol: Document 05/27/18 13:28 [facility] (Rec: 05/27/18 13:47 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 This progressed to effect her achilles tendon and felt acute in June. Lilliam notes she took a month off of running due to her pain. She then began training for a 50 k run in october. She was able to finish the run but she notes she could barely walk following. She is currently running approximately 15-20 miles a week now which is half of what she normally runs. She reports she has to start out really slow for her first few miles and then pain can begin after 5 miles. Treatment Goals Patient/Caregiver Goals Lilliam's goals include continuing to run without pain and to learn ways to manage her symptoms Current Functional Impairments (Reported) Functional Limitations- Recreation/ limited in running greater Hobbies than 5 miles at a time PT-OP-C Subjective Start: 02/03/18 05:41 Freq: Status: Active Protocol: Document 05/27/18 13:28 [facility] (Rec: 05/27/18 13:47 [facility] [id number]) OP-PT Subjective Patient Comments Patient Comments Reports she has done 2 five mile runs and a 7 mile run since last time. No pain during run but stiffness in achilles after. Reports she has worked on running form and she feels like working on her arms helped her on hills. PT-OP-F Manual Assessment Start: 02/03/18 05:41 Freq: Status: Active Protocol: Document 01/30/18 15:15 [facility] (Rec: 02/03/18 06:08 [facility] [email or web address]) Manual Assessments Soft Tissue Assessment Soft Tissue Mobility Assessment tightness in the left greater than right gastroc and palpable nodule on the medial aspect of bilateral achilles Left>Right left iliopsoas tightness, + nirav test left hamstring tightness SLR 60 deg Joint Mobility Assessment Joint Mobility Assessment + ALSR on the left for SI joint instability LEft leg longer in supine PT-OP-J Posture/Palpation/Skin Start: 02/03/18 05:41 Freq: Status: Active Protocol: Document 01/30/18 15:15 [facility] (Rec: 02/03/18 06:08 [facility] [email or web address]) Palpation Assessment Location Two Palpation Location gastroc and soleus Palpation Findings Soft Tissue Tightness One Palpation Location Bilateral achilles tendons L>R Palpation Findings Tenderness Palpation Details palpable nodule felt on the medial aspect of the achilles tendon left greater than right with tenderness PT-OP-K Range of Motion Start: 02/03/18 05:41 Freq: Status: Active Protocol: Document 01/30/18 15:15 [facility] (Rec: 02/03/18 06:08 [facility] [email or web address]) Ankle and Foot Goniometric Range of Motion Ankle and Foot Measured in Degrees Right Testing Position Prone Dorsiflexion with Knee Flexed 10 Dorsiflexion with Knee Extended 8 Left Ankle/Foot ROM WFL No Testing Position Prone Dorsiflexion with Knee Flexed 8 Dorsiflexion with Knee Extended 5 PT-OP-M Strength Start: 02/03/18 05:41 Freq: Status: Active Protocol: Document 03/26/18 14:05 [facility] (Rec: 03/26/18 14:21 [facility] [email or web address]) Hip Strength Hip Manual Muscle Testing Right Flexion (L2) 5 Normal Extension (S1) 4+ Good+ Abduction 4+ Good+ External Rotation 5 Normal Internal Rotation 4+ Good+ Left Flexion (L2) 4+ Good+ Extension (S1) 4+ Good+ Abduction 5 Normal External Rotation 4 Good Internal Rotation 4 Good Knee Strength Knee Manual Muscle Testing Right Flexion (S2) 5 Normal Extension (L3) 5 Normal Left Flexion (S2) 5 Normal Extension (L3) 5 Normal Ankle/Foot Strength Ankle and Foot Manual Muscle Testing Right Dorsiflexion (L4) 5 Normal Plantarflexion (S1) 5 Normal Inversion 5 Normal Eversion (S1) 5 Normal Left Dorsiflexion (L4) 5 Normal Plantarflexion (S1) 5 Normal Inversion 5 Normal Eversion (S1) 5 Normal Comments tension in achilles after 20 calf raises PT-OP-T Assessment and Plan Start: 02/03/18 05:41 Freq: Status: Active Protocol: Document 05/27/18 13:28 [facility] (Rec: 05/27/18 13:47 [facility] [id number]) Physical Therapy Assessment Impairments Impairments Balance Functional Mobility Gait Pain Posture Soft Tissue Mobility Strength Goals Four Impairment pain with running > 5 miles Electric Meter Inspector Goal (LTG) With manual therapy treatments , kinesiotaping, modalities, and self care Lilliam is able to return to running without pain Three Impairment Decreased stride length and tightness of the L>R iliopsoas and hamstring Electric Meter Inspector Goal (LTG) Improve length of the iliopsoas and hamstring on the left to improve stride length decreasing pull on the left SI joint and decreasing strain to the left achilles with running Two Impairment scar tissue nodule noted on the achilles tendon B Short Term Goal (STG) Lilliam is instructed in self TFM to decrease scar tissue at the achilles and help improve tensile strength One Impairment Decreased flexibility of the gastroc/soleus complex L>R Short Term Goal (STG) Lilliam is educated in a home program of flexibility training for the gastroc/ soleus musculature STG Duration 6 weeks Assessment Summary Assessment Improved running form with adjustments with forward lean and arm swing. Pt cont to have dec post depression with running which improves with change in arm swing and with adjustment of posture. Physical Therapy Plan Frequency and Duration Frequency of Treatment 2x/Week Duration of Treatment 2 months Plan of Care Start Date 05/27/18 Plan of Care End Date 07/27/18 Therapeutic Interventions Therapeutic Interventions Balance Training Gait Training Home Exercise Program Joint Mobilizations Manual Therapy Soft Tissue Mobilization Taping Therapeutic Exercises Modalities Cold Pack/Ice Massage Electric Stimulation Hot Packs Infrared Therapy Iontophoresis Ultrasound Next Visit Focus/Plan Next Note Type Progress Note Next Visit Plan Work on talar glides, cuneiform & cuboid mobs; cont to work on running form
--- NOTE | 2018-05-27 07:35 | PT.OPPOC ---
Current Diagnoses Achilles tendinitis, unspecified leg (05/27/18) Provider Visit Care Team Role Provider Type Alisha Dorsey MD Family Provider Physician Specialty: BUSINESS RELATIONS MANAGER Address: [address] [place] [address], [address] Email: [email or web address] Aristeo Oliva MD Attending Provider Physician Primary Care Provider Specialty: Family Practice Address: [address] [place] [address], [address] Email: [email or web address] Plan Of Care PT-OP-T Assessment and Plan Start: 02/03/18 05:41 Freq: Status: Active Protocol: Document 05/27/18 13:28 [facility] (Rec: 05/27/18 13:47 [facility] [id number]) Physical Therapy Assessment Impairments Impairments Balance Functional Mobility Gait Pain Posture Soft Tissue Mobility Strength Goals Four Impairment pain with running > 5 miles Senior Care Goal (LTG) With manual therapy treatments , kinesiotaping, modalities, and self care Lilliam is able to return to running without pain Three Impairment Decreased stride length and tightness of the L>R iliopsoas and hamstring Senior Care Goal (LTG) Improve length of the iliopsoas and hamstring on the left to improve stride length decreasing pull on the left SI joint and decreasing strain to the left achilles with running Two Impairment scar tissue nodule noted on the achilles tendon B Short Term Goal (STG) Lilliam is instructed in self TFM to decrease scar tissue at the achilles and help improve tensile strength One Impairment Decreased flexibility of the gastroc/soleus complex L>R Short Term Goal (STG) Lilliam is educated in a home program of flexibility training for the gastroc/ soleus musculature STG Duration 6 weeks Assessment Summary Assessment Improved running form with adjustments with forward lean and arm swing. Pt cont to have dec post depression with running which improves with change in arm swing and with adjustment of posture. Physical Therapy Plan Frequency and Duration Frequency of Treatment 2x/Week Duration of Treatment 2 months Plan of Care Start Date 05/27/18 Plan of Care End Date 07/27/18 Therapeutic Interventions Therapeutic Interventions Balance Training Gait Training Home Exercise Program Joint Mobilizations Manual Therapy Soft Tissue Mobilization Taping Therapeutic Exercises Modalities Cold Pack/Ice Massage Electric Stimulation Hot Packs Infrared Therapy Iontophoresis Ultrasound Next Visit Focus/Plan Next Note Type Progress Note Next Visit Plan Work on mallika miranda, reza & omkar kcs; cont to work on running form Plan of Care Dates Plan of Care Start Date 05/27/18 Plan of Care End Date 07/27/18 Please Sign and Return: I have reviewed this Plan of Care and certify that the skilled therapy services above are required to meet the patient?s needs. Physician Signature Date Printed Name and Credentials Clinical Instructor Signature Printed Name and Credentials
--- NOTE | 2018-05-27 16:28 | PT.OTN ---
Current Diagnoses Achilles tendinitis, unspecified leg (05/27/18) Physical Therapy Treatment Note PT-OP-A Visit Information Start: 02/03/18 05:41 Freq: Status: Active Protocol: Document 05/27/18 13:28 [facility] (Rec: 05/27/18 13:47 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 This progressed to effect her achilles tendon and felt acute in June. Lilliam notes she took a month off of running due to her pain. She then began training for a 50 k run in october. She was able to finish the run but she notes she could barely walk following. She is currently running approximately 15-20 miles a week now which is half of what she normally runs. She reports she has to start out really slow for her first few miles and then pain can begin after 5 miles. Treatment Goals Patient/Caregiver Goals Lilliam's goals include continuing to run without pain and to learn ways to manage her symptoms Current Functional Impairments (Reported) Functional Limitations- Recreation/ limited in running greater Hobbies than 5 miles at a time PT-OP-C Subjective Start: 02/03/18 05:41 Freq: Status: Active Protocol: Document 05/27/18 13:28 [facility] (Rec: 05/27/18 13:47 [facility] [id number]) OP-PT Subjective Patient Comments Patient Comments Reports she has done 2 five mile runs and a 7 mile run since last time. No pain during run but stiffness in achilles after. Reports she has worked on running form and she feels like working on her arms helped her on hills. PT-OP-F Manual Assessment Start: 02/03/18 05:41 Freq: Status: Active Protocol: Document 01/30/18 15:15 [facility] (Rec: 02/03/18 06:08 [facility] [email or web address]) Manual Assessments Soft Tissue Assessment Soft Tissue Mobility Assessment tightness in the left greater than right gastroc and palpable nodule on the medial aspect of bilateral achilles Left>Right left iliopsoas tightness, + nirav test left hamstring tightness SLR 60 deg Joint Mobility Assessment Joint Mobility Assessment + ALSR on the left for SI joint instability LEft leg longer in supine PT-OP-J Posture/Palpation/Skin Start: 02/03/18 05:41 Freq: Status: Active Protocol: Document 01/30/18 15:15 [facility] (Rec: 02/03/18 06:08 [facility] [email or web address]) Palpation Assessment Location Two Palpation Location gastroc and soleus Palpation Findings Soft Tissue Tightness One Palpation Location Bilateral achilles tendons L>R Palpation Findings Tenderness Palpation Details palpable nodule felt on the medial aspect of the achilles tendon left greater than right with tenderness PT-OP-K Range of Motion Start: 02/03/18 05:41 Freq: Status: Active Protocol: Document 01/30/18 15:15 [facility] (Rec: 02/03/18 06:08 [facility] [email or web address]) Ankle and Foot Goniometric Range of Motion Ankle and Foot Measured in Degrees Right Testing Position Prone Dorsiflexion with Knee Flexed 10 Dorsiflexion with Knee Extended 8 Left Ankle/Foot ROM WFL No Testing Position Prone Dorsiflexion with Knee Flexed 8 Dorsiflexion with Knee Extended 5 PT-OP-M Strength Start: 02/03/18 05:41 Freq: Status: Active Protocol: Document 03/26/18 14:05 [facility] (Rec: 03/26/18 14:21 [facility] [id number]) Hip Strength Hip Manual Muscle Testing Right Flexion (L2) 5 Normal Extension (S1) 4+ Good+ Abduction 4+ Good+ External Rotation 5 Normal Internal Rotation 4+ Good+ Left Flexion (L2) 4+ Good+ Extension (S1) 4+ Good+ Abduction 5 Normal External Rotation 4 Good Internal Rotation 4 Good Knee Strength Knee Manual Muscle Testing Right Flexion (S2) 5 Normal Extension (L3) 5 Normal Left Flexion (S2) 5 Normal Extension (L3) 5 Normal Ankle/Foot Strength Ankle and Foot Manual Muscle Testing Right Dorsiflexion (L4) 5 Normal Plantarflexion (S1) 5 Normal Inversion 5 Normal Eversion (S1) 5 Normal Left Dorsiflexion (L4) 5 Normal Plantarflexion (S1) 5 Normal Inversion 5 Normal Eversion (S1) 5 Normal Comments tension in achilles after 20 calf raises PT-OP-Q Treatments Start: 02/03/18 05:41 Freq: Status: Active Protocol: Document 05/27/18 13:28 [facility] (Rec: 05/27/18 13:47 [facility] [id number]) Gait Training Gait Activity seated arm running Description focus on neutral torso & good arm swing 3 Description running Comments Focus on arm swing with forward/back motion to prevent excessive trunk and pelvis rotations and working on slight forward lean 2 Description gait press at wall Comments focus on post depression L with knee drive R without pelvic rotation Manual Therapy Treatment Soft Tissue Mobilization 2 Body Location gastroc, soleus, tibialis posterior MFR Body Position Prone Comments circumfrential FM & along mm borders 1 Body Location achilles tendon B Mobilization Type Rolling Sustained Pressure Intensity/Depth Moderate Body Position Prone Comments FM w/PF/DF Neuro Re-Education Treatment Other Activities 2 Details post depression COI into pelvis and then long axis 1 Details ant elevation AA to COI PT-OP-R Modalities Start: 02/03/18 05:41 Freq: Status: Active Protocol: Document 05/27/18 13:28 [facility] (Rec: 05/27/18 13:47 [facility] [id number]) Hot Pack/Cold Pack Treatment Ice Massage Location B achilles Treatment Duration (minutes) 5 PT-OP-T Assessment and Plan Start: 02/03/18 05:41 Freq: Status: Active Protocol: Document 05/27/18 13:28 [facility] (Rec: 05/27/18 13:47 [facility] [id number]) Physical Therapy Assessment Goals Four Impairment pain with running > 5 miles Group Home Goal (LTG) With manual therapy treatments , kinesiotaping, modalities, and self care iLlliam is able to return to running without pain Three Impairment Decreased stride length and tightness of the L>R iliopsoas and hamstring Group Home Goal (LTG) Improve length of the iliopsoas and hamstring on the left to improve stride length decreasing pull on the left SI joint and decreasing strain to the left achilles with running Two Impairment scar tissue nodule noted on the achilles tendon B Short Term Goal (STG) Lilliam is instructed in self TFM to decrease scar tissue at the achilles and help improve tensile strength One Impairment Decreased flexibility of the gastroc/soleus complex L>R Short Term Goal (STG) Lilliam is educated in a home program of flexibility training for the gastroc/ soleus musculature STG Duration 6 weeks Assessment Summary Assessment Improved running form with adjustments with forward lean and arm swing. Pt cont to have dec post depression with running which improves with change in arm swing and with adjustment of posture. Physical Therapy Plan Frequency and Duration Frequency of Treatment 2x/Week Duration of Treatment 8 weeks Plan of Care Start Date 03/26/18 Plan of Care End Date 05/26/18 Next Visit Focus/Plan Next Note Type Progress Note Next Visit Plan Work on talar glides, cuneiform & cuboid mobs; cont to work on running form
--- NOTE | 2018-06-02 11:16 | PT.OTN ---
Current Diagnoses Achilles tendinitis, unspecified leg (06/02/18) Physical Therapy Treatment Note PT-OP-A Visit Information Start: 02/03/18 05:41 Freq: Status: Active Protocol: Document 06/02/18 11:03 [facility] (Rec: 06/02/18 11:16 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 This progressed to effect her achilles tendon and felt acute in June. Lilliam notes she took a month off of running due to her pain. She then began training for a 50 k run in october. She was able to finish the run but she notes she could barely walk following. She is currently running approximately 15-20 miles a week now which is half of what she normally runs. She reports she has to start out really slow for her first few miles and then pain can begin after 5 miles. Treatment Goals Patient/Caregiver Goals Lilliam's goals include continuing to run without pain and to learn ways to manage her symptoms Current Functional Impairments (Reported) Functional Limitations- Recreation/ limited in running greater Hobbies than 5 miles at a time PT-OP-C Subjective Start: 02/03/18 05:41 Freq: Status: Active Protocol: Document 06/02/18 11:03 [facility] (Rec: 06/02/18 11:16 [facility] [id number]) OP-PT Subjective Patient Comments Patient Comments Reports doing a 17 mile run and a 7 mile run since last session. Reports she had some calf tightness after long run. Mostly tightness in lower calf vs achilles after runs. Plans to run 4 days this week. PT-OP-F Manual Assessment Start: 02/03/18 05:41 Freq: Status: Active Protocol: Document 01/30/18 15:15 [facility] (Rec: 02/03/18 06:08 [facility] [email or web address]) Manual Assessments Soft Tissue Assessment Soft Tissue Mobility Assessment tightness in the left greater than right gastroc and palpable nodule on the medial aspect of bilateral achilles Left>Right left iliopsoas tightness, + nirav test left hamstring tightness SLR 60 deg Joint Mobility Assessment Joint Mobility Assessment + ALSR on the left for SI joint instability LEft leg longer in supine PT-OP-J Posture/Palpation/Skin Start: 02/03/18 05:41 Freq: Status: Active Protocol: Document 01/30/18 15:15 [facility] (Rec: 02/03/18 06:08 [facility] [email or web address]) Palpation Assessment Location Two Palpation Location gastroc and soleus Palpation Findings Soft Tissue Tightness One Palpation Location Bilateral achilles tendons L>R Palpation Findings Tenderness Palpation Details palpable nodule felt on the medial aspect of the achilles tendon left greater than right with tenderness PT-OP-K Range of Motion Start: 02/03/18 05:41 Freq: Status: Active Protocol: Document 01/30/18 15:15 [facility] (Rec: 02/03/18 06:08 [facility] [id number]) Ankle and Foot Goniometric Range of Motion Ankle and Foot Measured in Degrees Right Testing Position Prone Dorsiflexion with Knee Flexed 10 Dorsiflexion with Knee Extended 8 Left Ankle/Foot ROM WFL No Testing Position Prone Dorsiflexion with Knee Flexed 8 Dorsiflexion with Knee Extended 5 PT-OP-M Strength Start: 02/03/18 05:41 Freq: Status: Active Protocol: Document 03/26/18 14:05 [facility] (Rec: 03/26/18 14:21 [facility] [id number]) Hip Strength Hip Manual Muscle Testing Right Flexion (L2) 5 Normal Extension (S1) 4+ Good+ Abduction 4+ Good+ External Rotation 5 Normal Internal Rotation 4+ Good+ Left Flexion (L2) 4+ Good+ Extension (S1) 4+ Good+ Abduction 5 Normal External Rotation 4 Good Internal Rotation 4 Good Knee Strength Knee Manual Muscle Testing Right Flexion (S2) 5 Normal Extension (L3) 5 Normal Left Flexion (S2) 5 Normal Extension (L3) 5 Normal Ankle/Foot Strength Ankle and Foot Manual Muscle Testing Right Dorsiflexion (L4) 5 Normal Plantarflexion (S1) 5 Normal Inversion 5 Normal Eversion (S1) 5 Normal Left Dorsiflexion (L4) 5 Normal Plantarflexion (S1) 5 Normal Inversion 5 Normal Eversion (S1) 5 Normal Comments tension in achilles after 20 calf raises PT-OP-Q Treatments Start: 02/03/18 05:41 Freq: Status: Active Protocol: Document 06/02/18 11:03 [facility] (Rec: 06/02/18 11:16 [facility] [id number]) Gait Training Gait Activity 2 Description gait press at wall Comments focus on post depression L with knee drive R without pelvic rotation Manual Therapy Treatment Soft Tissue Mobilization 4 Body Location plantar fascae Mobilization Type Rolling Comments Bilat 3 Body Location fat pad Mobilization Type Sustained Pressure 2 Body Location gastroc, soleus, tibialis posterior MFR Body Position Prone Comments circumfrential FM & along mm borders 1 Body Location achilles tendon B Mobilization Type Rolling Sustained Pressure Intensity/Depth Moderate Body Position Prone Comments FM w/PF/DF Joint Mobilizations 3 Joint talar Direction distraction, med/lat glides Comments FM; assessed in each direction 1 Joint calcaneus Direction distraction, med & lat glide Comments FM assesed in each direction PT-OP-R Modalities Start: 02/03/18 05:41 Freq: Status: Active Protocol: Document 05/27/18 13:28 [facility] (Rec: 05/27/18 13:47 [facility] [id number]) Hot Pack/Cold Pack Treatment Ice Massage Location B achilles Treatment Duration (minutes) 5 PT-OP-T Assessment and Plan Start: 02/03/18 05:41 Freq: Status: Active Protocol: Document 06/02/18 11:03 [facility] (Rec: 06/02/18 11:16 [facility] [id number]) Physical Therapy Assessment Goals Four Impairment pain with running > 5 miles Shelter Goal (LTG) With manual therapy treatments , kinesiotaping, modalities, and self care Lilliam is able to return to running without pain Three Impairment Decreased stride length and tightness of the L>R iliopsoas and hamstring [employer] Goal (LTG) Improve length of the iliopsoas and hamstring on the left to improve stride length decreasing pull on the left SI joint and decreasing strain to the left achilles with running Two Impairment scar tissue nodule noted on the achilles tendon B Short Term Goal (STG) Lilliam is instructed in self TFM to decrease scar tissue at the achilles and help improve tensile strength One Impairment Decreased flexibility of the gastroc/soleus complex L>R Short Term Goal (STG) Lilliam is educated in a home program of flexibility training for the gastroc/ soleus musculature STG Duration 6 weeks Assessment Summary Assessment Pt encouraged to add no more than 6 miles to this week's mileage. Improve soft tissue mobility after STM. R foot talus & calcaneus demonstrated good mobility today. Some lat calcaneal glides required to improve mobility on L Physical Therapy Plan Frequency and Duration Frequency of Treatment 2x/Week Duration of Treatment 2 months Plan of Care Start Date 05/27/18 Plan of Care End Date 07/27/18 Next Visit Focus/Plan Next Note Type Treatment Note Next Visit Plan Work on talar glides, cuneiform & cuboid mobs
--- NOTE | 2018-06-12 13:12 | PT.OTN ---
Current Diagnoses Achilles tendinitis, unspecified leg (06/12/18) Physical Therapy Treatment Note PT-OP-A Visit Information Start: 02/03/18 05:41 Freq: Status: Active Protocol: Document 06/12/18 12:56 [facility] (Rec: 06/12/18 13:06 [facility] [email or web address]) Out-Patient Physical Therapy Visit Information Visit Information Visit Type Treatment Note Visit Start Time 09:45 Visit Stop Time 10:30 Total Visit Minutes 45 Visit Number 17 PT-OP-B Current Condition Start: 02/03/18 05:41 Freq: Status: Active Protocol: Document 01/30/18 15:15 [facility] (Rec: 02/03/18 06:08 [facility] [email or web address]) Current Condition History of Current Condition Onset Date 1 year ago Current Complaints achilles pain left greater than right made worse with long distance running History of Current Condition 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 This progressed to effect her achilles tendon and felt acute in June. Lilliam notes she took a month off of running due to her pain. She then began training for a 50 k run in october. She was able to finish the run but she notes she could barely walk following. She is currently running approximately 15-20 miles a week now which is half of what she normally runs. She reports she has to start out really slow for her first few miles and then pain can begin after 5 miles. Treatment Goals Patient/Caregiver Goals Lilliam's goals include continuing to run without pain and to learn ways to manage her symptoms Current Functional Impairments (Reported) Functional Limitations- Recreation/ limited in running greater Hobbies than 5 miles at a time PT-OP-C Subjective Start: 02/03/18 05:41 Freq: Status: Active Protocol: Document 06/12/18 12:56 [facility] (Rec: 06/12/18 13:06 [facility] [email or web address]) OP-PT Subjective Patient Comments Patient Comments Pt reported doing a 16 mile run last week. She notes that when running downhill she notices the most pain on her L lateral leg. PT-OP-F Manual Assessment Start: 02/03/18 05:41 Freq: Status: Active Protocol: Document 01/30/18 15:15 [facility] (Rec: 02/03/18 06:08 [facility] [email or web address]) Manual Assessments Soft Tissue Assessment Soft Tissue Mobility Assessment tightness in the left greater than right gastroc and palpable nodule on the medial aspect of bilateral achilles Left>Right left iliopsoas tightness, + nirav test left hamstring tightness SLR 60 deg Joint Mobility Assessment Joint Mobility Assessment + ALSR on the left for SI joint instability LEft leg longer in supine PT-OP-J Posture/Palpation/Skin Start: 02/03/18 05:41 Freq: Status: Active Protocol: Document 01/30/18 15:15 [facility] (Rec: 02/03/18 06:08 [facility] [email or web address]) Palpation Assessment Location Two Palpation Location gastroc and soleus Palpation Findings Soft Tissue Tightness One Palpation Location Bilateral achilles tendons L>R Palpation Findings Tenderness Palpation Details palpable nodule felt on the medial aspect of the achilles tendon left greater than right with tenderness PT-OP-K Range of Motion Start: 02/03/18 05:41 Freq: Status: Active Protocol: Document 01/30/18 15:15 [facility] (Rec: 02/03/18 06:08 [facility] [email or web address]) Ankle and Foot Goniometric Range of Motion Ankle and Foot Measured in Degrees Right Testing Position Prone Dorsiflexion with Knee Flexed 10 Dorsiflexion with Knee Extended 8 Left Ankle/Foot ROM WFL No Testing Position Prone Dorsiflexion with Knee Flexed 8 Dorsiflexion with Knee Extended 5 PT-OP-M Strength Start: 02/03/18 05:41 Freq: Status: Active Protocol: Document 06/12/18 12:56 [facility] (Rec: 06/12/18 13:11 [facility] [email or web address]) Hip Strength Hip Manual Muscle Testing Right Flexion (L2) 5 Normal Extension (S1) 5 Normal Abduction 5 Normal External Rotation 4+ Good+ Internal Rotation 5 Normal Left Flexion (L2) 5 Normal Extension (S1) 4+ Good+ Abduction 4+ Good+ External Rotation 4 Good Internal Rotation 4 Good Knee Strength Knee Manual Muscle Testing Right Flexion (S2) 5 Normal Extension (L3) 5 Normal Left Flexion (S2) 5 Normal Extension (L3) 5 Normal Ankle/Foot Strength Ankle and Foot Manual Muscle Testing Right Dorsiflexion (L4) 5 Normal Plantarflexion (S1) 5 Normal Inversion 5 Normal Eversion (S1) 5 Normal Left Dorsiflexion (L4) 5 Normal Plantarflexion (S1) 5 Normal Inversion 5 Normal Eversion (S1) 5 Normal PT-OP-Q Treatments Start: 02/03/18 05:41 Freq: Status: Active Protocol: Document 06/12/18 12:56 [facility] (Rec: 06/12/18 13:06 [facility] [email or web address]) Manual Therapy Treatment Soft Tissue Mobilization 5 Body Location L fibular muscles Mobilization Type Sustained Pressure Comments CR of DF/PF Joint Mobilizations 5 Joint PA of prox fibula L 3 Joint bilateral talar Direction lat glide Comments FM; assessed in each direction Manual Techniques 1 Type MMT and ROM Body Location LE bilaterally PT-OP-R Modalities Start: 02/03/18 05:41 Freq: Status: Active Protocol: Document 05/27/18 13:28 [facility] (Rec: 05/27/18 13:47 [facility] [id number]) Hot Pack/Cold Pack Treatment Ice Massage Location B achilles Treatment Duration (minutes) 5 PT-OP-T Assessment and Plan Start: 02/03/18 05:41 Freq: Status: Active Protocol: Document 06/12/18 12:56 [facility] (Rec: 06/12/18 13:06 [facility] [email or web address]) Physical Therapy Assessment Goals Four Impairment pain with running > 5 miles Retirement Goal (LTG) With manual therapy treatments , kinesiotaping, modalities, and self care Lilliam is able to return to running without pain Three Impairment Decreased stride length and tightness of the L>R iliopsoas and hamstring [employer] Goal (LTG) Improve length of the iliopsoas and hamstring on the left to improve stride length decreasing pull on the left SI joint and decreasing strain to the left achilles with running Two Impairment scar tissue nodule noted on the achilles tendon B Short Term Goal (STG) Lilliam is instructed in self TFM to decrease scar tissue at the achilles and help improve tensile strength One Impairment Decreased flexibility of the gastroc/soleus complex L>R Short Term Goal (STG) Lilliam is educated in a home program of flexibility training for the gastroc/ soleus musculature STG Duration 6 weeks Assessment Summary Assessment Pt was assessed for LE strength and ROM bilaterally during treatment today and still presents with glute weakness. Pt was instructed to do her ER exercise at home as well as a squatting side step to continue to improve strength. Pt was also limited in her amount of eversion and knee flexion which were addressed with mobilizations after clearing soft tissue tightness. Physical Therapy Plan Frequency and Duration Frequency of Treatment Every Other Week Duration of Treatment 2 months Plan of Care Start Date 05/27/18 Plan of Care End Date 07/27/18 Next Visit Focus/Plan Next Note Type Treatment Note Next Visit Plan Work on talar glides, cuneiform & cuboid mobs; glute strength; gait mechanics; fibular position
--- NOTE | 2018-06-25 18:25 | PT.OTN ---
Current Diagnoses Achilles tendinitis, unspecified leg (06/12/18) Physical Therapy Treatment Note PT-OP-A Visit Information Start: 02/03/18 05:41 Freq: Status: Active Protocol: Document 06/25/18 17:24 [facility] (Rec: 06/25/18 18:05 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 This progressed to effect her achilles tendon and felt acute in June. Lilliam notes she took a month off of running due to her pain. She then began training for a 50 k run in october. She was able to finish the run but she notes she could barely walk following. She is currently running approximately 15-20 miles a week now which is half of what she normally runs. She reports she has to start out really slow for her first few miles and then pain can begin after 5 miles. Treatment Goals Patient/Caregiver Goals Lilliam's goals include continuing to run without pain and to learn ways to manage her symptoms Current Functional Impairments (Reported) Functional Limitations- Recreation/ limited in running greater Hobbies than 5 miles at a time PT-OP-C Subjective Start: 02/03/18 05:41 Freq: Status: Active Protocol: Document 06/25/18 17:24 [facility] (Rec: 06/25/18 18:05 [facility] [id number]) OP-PT Subjective Patient Comments Patient Comments Pt reports she was able to run 2 20 mile runs since last session. Reports she feels achilles by the end of it. PT-OP-F Manual Assessment Start: 02/03/18 05:41 Freq: Status: Active Protocol: Document 01/30/18 15:15 [facility] (Rec: 02/03/18 06:08 [facility] [email or web address]) Manual Assessments Soft Tissue Assessment Soft Tissue Mobility Assessment tightness in the left greater than right gastroc and palpable nodule on the medial aspect of bilateral achilles Left>Right left iliopsoas tightness, + nirav test left hamstring tightness SLR 60 deg Joint Mobility Assessment Joint Mobility Assessment + ALSR on the left for SI joint instability LEft leg longer in supine PT-OP-J Posture/Palpation/Skin Start: 02/03/18 05:41 Freq: Status: Active Protocol: Document 01/30/18 15:15 [facility] (Rec: 02/03/18 06:08 [facility] [email or web address]) Palpation Assessment Location Two Palpation Location gastroc and soleus Palpation Findings Soft Tissue Tightness One Palpation Location Bilateral achilles tendons L>R Palpation Findings Tenderness Palpation Details palpable nodule felt on the medial aspect of the achilles tendon left greater than right with tenderness PT-OP-K Range of Motion Start: 02/03/18 05:41 Freq: Status: Active Protocol: Document 01/30/18 15:15 [facility] (Rec: 02/03/18 06:08 [facility] [email or web address]) Ankle and Foot Goniometric Range of Motion Ankle and Foot Measured in Degrees Right Testing Position Prone Dorsiflexion with Knee Flexed 10 Dorsiflexion with Knee Extended 8 Left Ankle/Foot ROM WFL No Testing Position Prone Dorsiflexion with Knee Flexed 8 Dorsiflexion with Knee Extended 5 PT-OP-M Strength Start: 02/03/18 05:41 Freq: Status: Active Protocol: Document 06/12/18 12:56 [facility] (Rec: 06/12/18 13:11 [facility] [email or web address]) Hip Strength Hip Manual Muscle Testing Right Flexion (L2) 5 Normal Extension (S1) 5 Normal Abduction 5 Normal External Rotation 4+ Good+ Internal Rotation 5 Normal Left Flexion (L2) 5 Normal Extension (S1) 4+ Good+ Abduction 4+ Good+ External Rotation 4 Good Internal Rotation 4 Good Knee Strength Knee Manual Muscle Testing Right Flexion (S2) 5 Normal Extension (L3) 5 Normal Left Flexion (S2) 5 Normal Extension (L3) 5 Normal Ankle/Foot Strength Ankle and Foot Manual Muscle Testing Right Dorsiflexion (L4) 5 Normal Plantarflexion (S1) 5 Normal Inversion 5 Normal Eversion (S1) 5 Normal Left Dorsiflexion (L4) 5 Normal Plantarflexion (S1) 5 Normal Inversion 5 Normal Eversion (S1) 5 Normal PT-OP-Q Treatments Start: 02/03/18 05:41 Freq: Status: Active Protocol: Document 06/25/18 17:24 [facility] (Rec: 06/25/18 18:24 [facility] [email or web address]) Therapeutic Exercises Supine Exercises 2 Supine Exercise Name nirav test stretch Gait Training Gait Activity exaggerated post depression Description walking with exaggerated post depression walking lunge Description for push off 3 Description running Comments Focus on arm swing with forward/back motion to prevent excessive trunk and pelvis rotations and working on slight forward lean & working on push off and knee ext 1 Description bounding Comments focus on push off Manual Therapy Treatment Soft Tissue Mobilization 3 Body Location ilicus & rectus femoris Comments FM in nirav test position Joint Mobilizations 2 Joint innominate Direction ext FM Comments w/ neuro re edu into ext & attempt at plank with hip ext with dep into wall-pt unable to do with glute activation PT-OP-R Modalities Start: 02/03/18 05:41 Freq: Status: Active Protocol: Document 05/27/18 13:28 [facility] (Rec: 05/27/18 13:47 [facility] [id number]) Hot Pack/Cold Pack Treatment Ice Massage Location B achilles Treatment Duration (minutes) 5 PT-OP-T Assessment and Plan Start: 02/03/18 05:41 Freq: Status: Active Protocol: Document 06/25/18 17:24 [facility] (Rec: 06/25/18 18:24 [facility] [email or web address]) Physical Therapy Assessment Goals Four Impairment pain with running > 5 miles Brewery Representative Goal (LTG) With manual therapy treatments , kinesiotaping, modalities, and self care Lilliam is able to return to running without pain Three Impairment Decreased stride length and tightness of the L>R iliopsoas and hamstring Brewery Representative Goal (LTG) Improve length of the iliopsoas and hamstring on the left to improve stride length decreasing pull on the left SI joint and decreasing strain to the left achilles with running Two Impairment scar tissue nodule noted on the achilles tendon B Short Term Goal (STG) Lilliam is instructed in self TFM to decrease scar tissue at the achilles and help improve tensile strength One Impairment Decreased flexibility of the gastroc/soleus complex L>R Short Term Goal (STG) Lilliam is educated in a home program of flexibility training for the gastroc/ soleus musculature STG Duration 6 weeks Assessment Summary Assessment Pt has limitation through hip flexors & innominate into ext B, creating dec push off when runing. Pt remains in knee flexion during stance and push off and does not fully extend either LE when runnning. Cont to work on appropriate arm movement. Physical Therapy Plan Frequency and Duration Frequency of Treatment 1x/Week Duration of Treatment 2 months Plan of Care Start Date 05/27/18 Plan of Care End Date 07/27/18 Next Visit Focus/Plan Next Note Type Treatment Note Next Visit Plan Work on talar glides, cuneiform & cuboid mobs; glute strength; gait mechanics; fibular position; work on innominate ext for running
--- NOTE | 2018-07-14 14:14 | PT.OTN ---
Current Diagnoses Achilles tendinitis, unspecified leg (07/14/18) Physical Therapy Treatment Note PT-OP-A Visit Information Start: 02/03/18 05:41 Freq: Status: Active Protocol: Document 07/14/18 10:30 [facility] (Rec: 07/14/18 13:36 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 This progressed to effect her achilles tendon and felt acute in June. Lilliam notes she took a month off of running due to her pain. She then began training for a 50 k run in october. She was able to finish the run but she notes she could barely walk following. She is currently running approximately 15-20 miles a week now which is half of what she normally runs. She reports she has to start out really slow for her first few miles and then pain can begin after 5 miles. Treatment Goals Patient/Caregiver Goals Lilliam's goals include continuing to run without pain and to learn ways to manage her symptoms Current Functional Impairments (Reported) Functional Limitations- Recreation/ limited in running greater Hobbies than 5 miles at a time PT-OP-C Subjective Start: 02/03/18 05:41 Freq: Status: Active Protocol: Document 07/14/18 10:30 [facility] (Rec: 07/14/18 13:36 [facility] [id number]) OP-PT Subjective Patient Comments Patient Comments Reports compliance with HEP and has been able to run with only minor tightness in achilles. PT-OP-F Manual Assessment Start: 02/03/18 05:41 Freq: Status: Active Protocol: Document 01/30/18 15:15 [facility] (Rec: 02/03/18 06:08 [facility] [email or web address]) Manual Assessments Soft Tissue Assessment Soft Tissue Mobility Assessment tightness in the left greater than right gastroc and palpable nodule on the medial aspect of bilateral achilles Left>Right left iliopsoas tightness, + nirav test left hamstring tightness SLR 60 deg Joint Mobility Assessment Joint Mobility Assessment + ALSR on the left for SI joint instability LEft leg longer in supine PT-OP-J Posture/Palpation/Skin Start: 02/03/18 05:41 Freq: Status: Active Protocol: Document 01/30/18 15:15 [facility] (Rec: 02/03/18 06:08 [facility] [email or web address]) Palpation Assessment Location Two Palpation Location gastroc and soleus Palpation Findings Soft Tissue Tightness One Palpation Location Bilateral achilles tendons L>R Palpation Findings Tenderness Palpation Details palpable nodule felt on the medial aspect of the achilles tendon left greater than right with tenderness PT-OP-K Range of Motion Start: 02/03/18 05:41 Freq: Status: Active Protocol: Document 01/30/18 15:15 [facility] (Rec: 02/03/18 06:08 [facility] [email or web address]) Ankle and Foot Goniometric Range of Motion Ankle and Foot Measured in Degrees Right Testing Position Prone Dorsiflexion with Knee Flexed 10 Dorsiflexion with Knee Extended 8 Left Ankle/Foot ROM WFL No Testing Position Prone Dorsiflexion with Knee Flexed 8 Dorsiflexion with Knee Extended 5 PT-OP-M Strength Start: 02/03/18 05:41 Freq: Status: Active Protocol: Document 06/12/18 12:56 [facility] (Rec: 06/12/18 13:11 [facility] [email or web address]) Hip Strength Hip Manual Muscle Testing Right Flexion (L2) 5 Normal Extension (S1) 5 Normal Abduction 5 Normal External Rotation 4+ Good+ Internal Rotation 5 Normal Left Flexion (L2) 5 Normal Extension (S1) 4+ Good+ Abduction 4+ Good+ External Rotation 4 Good Internal Rotation 4 Good Knee Strength Knee Manual Muscle Testing Right Flexion (S2) 5 Normal Extension (L3) 5 Normal Left Flexion (S2) 5 Normal Extension (L3) 5 Normal Ankle/Foot Strength Ankle and Foot Manual Muscle Testing Right Dorsiflexion (L4) 5 Normal Plantarflexion (S1) 5 Normal Inversion 5 Normal Eversion (S1) 5 Normal Left Dorsiflexion (L4) 5 Normal Plantarflexion (S1) 5 Normal Inversion 5 Normal Eversion (S1) 5 Normal PT-OP-Q Treatments Start: 02/03/18 05:41 Freq: Status: Active Protocol: Document 07/14/18 10:30 [facility] (Rec: 07/16/18 08:14 [facility] [email or web address]) Therapeutic Exercises Standing Exercises 4 Standing Exercise Name walking lunge in mirror Comments focus on no lat shear of pelvis/hips Gait Training Gait Activity exaggerated post depression Description walking with exaggerated post depression 3 Description running Comments Focus on arm swing with forward/back motion to prevent excessive trunk and pelvis rotations and working on slight forward lean & working on push off and knee ext; use of video for pt to see form 1 Description facilated ant elevation Comments manual facilitation Manual Therapy Treatment Soft Tissue Mobilization 2 Body Location gastroc, soleus, tibialis posterior MFR Body Position Prone Comments circumfrential FM & along mm borders 1 Body Location achilles tendon B Mobilization Type Rolling Sustained Pressure Intensity/Depth Moderate Body Position Prone Comments FM w/PF/DF PT-OP-R Modalities Start: 02/03/18 05:41 Freq: Status: Active Protocol: Document 05/27/18 13:28 [facility] (Rec: 05/27/18 13:47 [facility] [id number]) Hot Pack/Cold Pack Treatment Ice Massage Location B achilles Treatment Duration (minutes) 5 PT-OP-T Assessment and Plan Start: 02/03/18 05:41 Freq: Status: Active Protocol: Document 07/14/18 10:30 [facility] (Rec: 07/14/18 18:12 [facility] [email or web address]) Physical Therapy Assessment Impairments Impairments Gait Pain Soft Tissue Mobility Strength Goals Four Impairment pain with running > 5 miles Lathe Set Up Operator Goal (LTG) With manual therapy treatments , kinesiotaping, modalities, and self care Lilliam is able to return to running without pain LTG Duration mostly achieved-minor tightness/discomfort Three Impairment Decreased stride length and tightness of the L>R iliopsoas and hamstring Long-Term Goal (LTG) Improve length of the iliopsoas and hamstring on the left to improve stride length decreasing pull on the left SI joint and decreasing strain to the left achilles with running LTG Duration achieved Two Impairment scar tissue nodule noted on the achilles tendon B Short Term Goal (STG) Lilliam is instructed in self TFM to decrease scar tissue at the achilles and help improve tensile strength STG Duration achieved One Impairment Decreased flexibility of the gastroc/soleus complex L>R Short Term Goal (STG) Lilliam is educated in a home program of flexibility training for the gastroc/ soleus musculature STG Duration achieved Assessment Summary Assessment Improved gait today. Pt cont to have mild rotational component with UEs. She had difficulty with lunge form in order to maintain neutral pelvis & appropriate post depression. Physical Therapy Plan Frequency and Duration Frequency of Treatment Every Other Week Duration of Treatment 2 months Plan of Care Start Date 07/14/18 Plan of Care End Date 09/14/17 Therapeutic Interventions Therapeutic Interventions Balance Training Gait Training Home Exercise Program Joint Mobilizations Manual Therapy Soft Tissue Mobilization Taping Therapeutic Exercises Modalities Cold Pack/Ice Massage Electric Stimulation Hot Packs Infrared Therapy Iontophoresis Ultrasound Next Visit Focus/Plan Next Note Type Treatment Note Next Visit Plan assess how pt did with vacation; foot mobs prn
--- NOTE | 2018-07-14 16:14 | PT.OPPN ---
Current Diagnoses Achilles tendinitis, unspecified leg (07/14/18) Physical Therapy Progress Note PT-OP-A Visit Information Start: 02/03/18 05:41 Freq: Status: Active Protocol: Document 07/14/18 10:30 [facility] (Rec: 07/14/18 13:36 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 This progressed to effect her achilles tendon and felt acute in June. Lilliam notes she took a month off of running due to her pain. She then began training for a 50 k run in october. She was able to finish the run but she notes she could barely walk following. She is currently running approximately 15-20 miles a week now which is half of what she normally runs. She reports she has to start out really slow for her first few miles and then pain can begin after 5 miles. Treatment Goals Patient/Caregiver Goals Lilliam's goals include continuing to run without pain and to learn ways to manage her symptoms Current Functional Impairments (Reported) Functional Limitations- Recreation/ limited in running greater Hobbies than 5 miles at a time PT-OP-C Subjective Start: 02/03/18 05:41 Freq: Status: Active Protocol: Document 07/14/18 10:30 [facility] (Rec: 07/14/18 13:36 [facility] [id number]) OP-PT Subjective Patient Comments Patient Comments Reports compliance with HEP and has been able to run with only minor tightness in achilles. PT-OP-F Manual Assessment Start: 02/03/18 05:41 Freq: Status: Active Protocol: Document 01/30/18 15:15 [facility] (Rec: 02/03/18 06:08 [facility] [email or web address]) Manual Assessments Soft Tissue Assessment Soft Tissue Mobility Assessment tightness in the left greater than right gastroc and palpable nodule on the medial aspect of bilateral achilles Left>Right left iliopsoas tightness, + nirav test left hamstring tightness SLR 60 deg Joint Mobility Assessment Joint Mobility Assessment + ALSR on the left for SI joint instability LEft leg longer in supine PT-OP-J Posture/Palpation/Skin Start: 02/03/18 05:41 Freq: Status: Active Protocol: Document 01/30/18 15:15 [facility] (Rec: 02/03/18 06:08 [facility] [email or web address]) Palpation Assessment Location Two Palpation Location gastroc and soleus Palpation Findings Soft Tissue Tightness One Palpation Location Bilateral achilles tendons L>R Palpation Findings Tenderness Palpation Details palpable nodule felt on the medial aspect of the achilles tendon left greater than right with tenderness PT-OP-K Range of Motion Start: 02/03/18 05:41 Freq: Status: Active Protocol: Document 01/30/18 15:15 [facility] (Rec: 02/03/18 06:08 [facility] [email or web address]) Ankle and Foot Goniometric Range of Motion Ankle and Foot Measured in Degrees Right Testing Position Prone Dorsiflexion with Knee Flexed 10 Dorsiflexion with Knee Extended 8 Left Ankle/Foot ROM WFL No Testing Position Prone Dorsiflexion with Knee Flexed 8 Dorsiflexion with Knee Extended 5 PT-OP-M Strength Start: 02/03/18 05:41 Freq: Status: Active Protocol: Document 06/12/18 12:56 [facility] (Rec: 06/12/18 13:11 [facility] [email or web address]) Hip Strength Hip Manual Muscle Testing Right Flexion (L2) 5 Normal Extension (S1) 5 Normal Abduction 5 Normal External Rotation 4+ Good+ Internal Rotation 5 Normal Left Flexion (L2) 5 Normal Extension (S1) 4+ Good+ Abduction 4+ Good+ External Rotation 4 Good Internal Rotation 4 Good Knee Strength Knee Manual Muscle Testing Right Flexion (S2) 5 Normal Extension (L3) 5 Normal Left Flexion (S2) 5 Normal Extension (L3) 5 Normal Ankle/Foot Strength Ankle and Foot Manual Muscle Testing Right Dorsiflexion (L4) 5 Normal Plantarflexion (S1) 5 Normal Inversion 5 Normal Eversion (S1) 5 Normal Left Dorsiflexion (L4) 5 Normal Plantarflexion (S1) 5 Normal Inversion 5 Normal Eversion (S1) 5 Normal PT-OP-T Assessment and Plan Start: 02/03/18 05:41 Freq: Status: Active Protocol: Document 07/14/18 10:30 [facility] (Rec: 07/14/18 18:12 [facility] [id number]) Physical Therapy Assessment Impairments Impairments Gait Pain Soft Tissue Mobility Strength Goals Four Impairment pain with running > 5 miles Time Study Statistician Goal (LTG) With manual therapy treatments , kinesiotaping, modalities, and self care Lilliam is able to return to running without pain LTG Duration mostly achieved-minor tightness/discomfort Three Impairment Decreased stride length and tightness of the L>R iliopsoas and hamstring Time Study Statistician Goal (LTG) Improve length of the iliopsoas and hamstring on the left to improve stride length decreasing pull on the left SI joint and decreasing strain to the left achilles with running LTG Duration achieved Two Impairment scar tissue nodule noted on the achilles tendon B Short Term Goal (STG) Lilliam is instructed in self TFM to decrease scar tissue at the achilles and help improve tensile strength STG Duration achieved One Impairment Decreased flexibility of the gastroc/soleus complex L>R Short Term Goal (STG) Lilliam is educated in a home program of flexibility training for the gastroc/ soleus musculature STG Duration achieved Assessment Summary Assessment Improved gait today. Pt cont to have mild rotational component with UEs. She had difficulty with lunge form in order to maintain neutral pelvis & appropriate post depression. Physical Therapy Plan Frequency and Duration Frequency of Treatment Every Other Week Duration of Treatment 2 months Plan of Care Start Date 07/14/18 Plan of Care End Date 09/14/17 Therapeutic Interventions Therapeutic Interventions Balance Training Gait Training Home Exercise Program Joint Mobilizations Manual Therapy Soft Tissue Mobilization Taping Therapeutic Exercises Modalities Cold Pack/Ice Massage Electric Stimulation Hot Packs Infrared Therapy Iontophoresis Ultrasound Next Visit Focus/Plan Next Note Type Treatment Note Next Visit Plan assess how pt did with vacation; foot mobs prn
--- NOTE | 2018-07-14 17:14 | PT.OPPOC ---
Current Diagnoses Achilles tendinitis, unspecified leg (07/14/18) Provider Visit Care Team Role Provider Type Alisha Dorsey MD Family Provider Physician Specialty: [employer] Address: [address] [place] [address], [id number] Email: [email or web address] Aristeo Oliva MD Attending Provider Physician Primary Care Provider Specialty: Family Practice Address: [address] [place] [address], [id number] Email: [email or web address] Plan Of Care PT-OP-T Assessment and Plan Start: 02/03/18 05:41 Freq: Status: Active Protocol: Document 07/14/18 10:30 [facility] (Rec: 07/14/18 18:12 [facility] [email or web address]) Physical Therapy Assessment Impairments Impairments Gait Pain Soft Tissue Mobility Strength Goals Four Impairment pain with running > 5 miles Lead Scientist Goal (LTG) With manual therapy treatments , kinesiotaping, modalities, and self care Lilliam is able to return to running without pain LTG Duration mostly achieved-minor tightness/discomfort Three Impairment Decreased stride length and tightness of the L>R iliopsoas and hamstring Lead Scientist Goal (LTG) Improve length of the iliopsoas and hamstring on the left to improve stride length decreasing pull on the left SI joint and decreasing strain to the left achilles with running LTG Duration achieved Two Impairment scar tissue nodule noted on the achilles tendon B Short Term Goal (STG) Lilliam is instructed in self TFM to decrease scar tissue at the achilles and help improve tensile strength STG Duration achieved One Impairment Decreased flexibility of the gastroc/soleus complex L>R Short Term Goal (STG) Lilliam is educated in a home program of flexibility training for the gastroc/ soleus musculature STG Duration achieved Assessment Summary Assessment Improved gait today. Pt cont to have mild rotational component with UEs. She had difficulty with lunge form in order to maintain neutral pelvis & appropriate post depression. Physical Therapy Plan Frequency and Duration Frequency of Treatment Every Other Week Duration of Treatment 2 months Plan of Care Start Date 07/14/18 Plan of Care End Date 09/14/17 Therapeutic Interventions Therapeutic Interventions Balance Training Gait Training Home Exercise Program Joint Mobilizations Manual Therapy Soft Tissue Mobilization Taping Therapeutic Exercises Modalities Cold Pack/Ice Massage Electric Stimulation Hot Packs Infrared Therapy Iontophoresis Ultrasound Next Visit Focus/Plan Next Note Type Treatment Note Next Visit Plan assess how pt did with vacation; foot mobs prn Plan of Care Dates Plan of Care Start Date 07/14/18 Plan of Care End Date 09/14/17 Please Sign and Return: I have reviewed this Plan of Care and certify that the skilled therapy services above are required to meet the patient?s needs. Physician Signature Date Printed Name and Credentials Clinical Instructor Signature Printed Name and Credentials
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
--- NOTE | 2018-11-24 09:39 | PT.OPDS ---
Current Diagnoses Achilles tendinitis, unspecified leg (07/14/18) Provider Visit Care Team Role Provider Type Alisha Dorsey MD Family Provider Physician Specialty: VEHICLE ASSEMBLY INSPECTOR Address: [address] [place] [address], [address] Email: [email or web address] Aristeo Oliva MD Attending Provider Physician Primary Care Provider Specialty: Family Practice Address: [address] [place] [address], [id number] Email: [email or web address] Visit Number Visit Number 19 Discharge Summary PT-OP-B Current Condition Start: 02/03/18 05:41 Freq: Status: Active Protocol: Document 01/30/18 15:15 [facility] (Rec: 02/03/18 06:08 [facility] [email or web address]) Current Condition History of Current Condition Onset Date 1 year ago Current Complaints achilles pain left greater than right made worse with long distance running History of Current Condition 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 This progressed to effect her achilles tendon and felt acute in June. Lilliam notes she took a month off of running due to her pain. She then began training for a 50 k run in october. She was able to finish the run but she notes she could barely walk following. She is currently running approximately 15-20 miles a week now which is half of what she normally runs. She reports she has to start out really slow for her first few miles and then pain can begin after 5 miles. Treatment Goals Patient/Caregiver Goals Lilliam's goals include continuing to run without pain and to learn ways to manage her symptoms Current Functional Impairments (Reported) Functional Limitations- Recreation/ limited in running greater Hobbies than 5 miles at a time PT-OP-C Subjective Start: 02/03/18 05:41 Freq: Status: Active Protocol: Document 07/14/18 10:30 [facility] (Rec: 07/14/18 13:36 [facility] [id number]) OP-PT Subjective Patient Comments Patient Comments Reports compliance with HEP and has been able to run with only minor tightness in achilles. PT-OP-F Manual Assessment Start: 02/03/18 05:41 Freq: Status: Active Protocol: Document 01/30/18 15:15 [facility] (Rec: 02/03/18 06:08 [facility] [email or web address]) Manual Assessments Soft Tissue Assessment Soft Tissue Mobility Assessment tightness in the left greater than right gastroc and palpable nodule on the medial aspect of bilateral achilles Left>Right left iliopsoas tightness, + nirav test left hamstring tightness SLR 60 deg Joint Mobility Assessment Joint Mobility Assessment + ALSR on the left for SI joint instability LEft leg longer in supine PT-OP-J Posture/Palpation/Skin Start: 02/03/18 05:41 Freq: Status: Active Protocol: Document 01/30/18 15:15 [facility] (Rec: 02/03/18 06:08 [facility] [email or web address]) Palpation Assessment Location Two Palpation Location gastroc and soleus Palpation Findings Soft Tissue Tightness One Palpation Location Bilateral achilles tendons L>R Palpation Findings Tenderness Palpation Details palpable nodule felt on the medial aspect of the achilles tendon left greater than right with tenderness PT-OP-K Range of Motion Start: 02/03/18 05:41 Freq: Status: Active Protocol: Document 01/30/18 15:15 [facility] (Rec: 02/03/18 06:08 [facility] [email or web address]) Ankle and Foot Goniometric Range of Motion Ankle and Foot Measured in Degrees Right Testing Position Prone Dorsiflexion with Knee Flexed 10 Dorsiflexion with Knee Extended 8 Left Ankle/Foot ROM WFL No Testing Position Prone Dorsiflexion with Knee Flexed 8 Dorsiflexion with Knee Extended 5 PT-OP-M Strength Start: 02/03/18 05:41 Freq: Status: Active Protocol: Document 06/12/18 12:56 [facility] (Rec: 06/12/18 13:11 [facility] [email or web address]) Hip Strength Hip Manual Muscle Testing Right Flexion (L2) 5 Normal Extension (S1) 5 Normal Abduction 5 Normal External Rotation 4+ Good+ Internal Rotation 5 Normal Left Flexion (L2) 5 Normal Extension (S1) 4+ Good+ Abduction 4+ Good+ External Rotation 4 Good Internal Rotation 4 Good Knee Strength Knee Manual Muscle Testing Right Flexion (S2) 5 Normal Extension (L3) 5 Normal Left Flexion (S2) 5 Normal Extension (L3) 5 Normal Ankle/Foot Strength Ankle and Foot Manual Muscle Testing Right Dorsiflexion (L4) 5 Normal Plantarflexion (S1) 5 Normal Inversion 5 Normal Eversion (S1) 5 Normal Left Dorsiflexion (L4) 5 Normal Plantarflexion (S1) 5 Normal Inversion 5 Normal Eversion (S1) 5 Normal PT-OP-T Assessment and Plan Start: 02/03/18 05:41 Freq: Status: Active Protocol: Document 11/24/18 09:37 [facility] (Rec: 11/24/18 09:37 [facility] [email or web address]) Physical Therapy Plan Discharge Physical Therapy Discharge Reasons No Longer Attending PT Discharge Comments Pt was doing well and was able to run her 50k race with minor tightness in achilles. She cont to work on her stretching and strengthening at home.
== END 2019-04-15 16:29 | disposition home or self-care (01) ==
LOC: PHYS 10:30
PROVIDERS: Family Provider Obstetrics & Gynecology; PCP Family Medicine; Visit Provider Family Medicine
DX: M76.60 Achilles tendinitis, unspecified leg (principal)
CPT/HCPCS: 97035; 97110; 97112; 97116; 97140; 97161; 97535

== ENCOUNTER → 2018-08-19 12:44 | Outpatient (CLI) | payer OTHER, SELFPAY ==
--- NOTE | 2018-08-19 10:45 | DI.MG.S_ITS ---
Patient Name: AVERY VILLALBA date: 1970 Sex: F Attending Physician: Sunita Indications: Date: 08/19/2018 12:51 At the request of: PIA HUNTER Procedure: MM screening mammo BI BILATERAL DIGITAL SCREENING MAMMOGRAM 3D/2D WITH CAD: 08/19/2018 CLINICAL: Routine screening. Family history of breast cancer. Comparison is made to exams dated: 12/20/2016 mammogram, 10/03/2015 mammogram, mammogram, and 07/10/2013 mammogram - [facility]. The tissue of both breasts is extremely dense, which lowers the sensitivity of mammography. Current study was also evaluated with a Computer Aided Detection (CAD) system. No significant masses, calcifications, or other findings are seen in either breast. There has been no significant interval change. IMPRESSION: NEGATIVE There is no mammographic evidence of malignancy. A 1 year screening mammogram is recommended. This exam was interpreted at Station ID: [id number]. NOTE: For mammograms, a report in lay terms will be sent to the patient. Approximately 15% of breast malignancies will not be visualized mammographically. In the management of a palpable breast mass, a negative mammogram must not discourage biopsy of a clinically suspicious lesion. Electronically Signed By: Patel rudd/darcy:08/19/2018 22:02:17 letter sent: Normal Exam ACR BI-RADS Category 1: Negative 3341F
== END ==
PROVIDERS: Family Provider Obstetrics & Gynecology; PCP Family Medicine; Visit Provider Obstetrics & Gynecology
DX: Z12.31 Encounter for screening mammogram for malignant neoplasm of breast (principal); Z80.3 Family history of malignant neoplasm of breast
CPT/HCPCS: 77063; 77067

== ENCOUNTER → 2019-07-27 08:09 | Outpatient (CLI) | payer OTHER, SELFPAY ==
[2019-07-27 08:36] LABS: Add Manual Diff / Slide Review NO; Basophils Absolute Auto 0 /uL (0-100); Basophils Percent Auto 0.9 % (0-2); Eosinophils Absolute Auto 200 /uL (0-450); Eosinophils Percent Auto 3.4 % (2-4); Hematocrit 37.4 % (36-46); Hemoglobin 12.8 g/dL (12.0-16.0); Lymphocytes Absolute Auto 1300 /uL (1100-4500); Lymphocytes Percent Auto 25.7 % (25-40); Mean Corpuscular HGB Conc 34.3 % (30-36); Mean Corpuscular Hemoglobin 35.4 PG (26-34); Mean Corpuscular Volume 103.3 fL (80-100); Monocytes Absolute Auto 500 /uL (0-900); Monocytes Percent Auto 9.2 % (3-14); Neutrophils Absolute Auto 3000 /uL (1500-7000); Neutrophils Percent Auto 60.8 % (50-75); Platelet Count 377 X10^3/uL (150-400); Red Blood Cell Count 3.62 X10^6/uL (4.0-5.2); Red Cell Distribution Width 13.2 % (11.6-14.8); White Blood Cell Count 4.9 X10^3/uL (4.5-11.0)
[2019-07-27 08:58] LABS: Alanine Aminotransferase 28 IU/L (<35); Albumin 4.4 g/dL (3.5-5.0); Albumin Globulin Ratio 1.5 (1.0-2.8); Alkaline Phosphatase 59 U/L (38-126); Aspartate Aminotransferase 40 IU/L (14-36); BUN Creatinine Ratio 18.3 (6-22); Bilirubin Total 1.2 mg/dL (0.2-1.3); Blood Urea Nitrogen 11 mg/dL (7-17); Calcium 9.1 mg/dL (8.4-10.2); Carbon Dioxide 26 mmol/L (22-32); Chloride 99 mmol/L (98-107); Cholesterol 185 mg/dL (140-199); Estimated Glomerular Filt Rate > 60.0 mL/min (>60); Globulin 2.9 g/dL (1.7-4.1); Glucose 91 mg/dL (70-100); HDL Cholesterol 95 mg/dL (40-60); HEMOLYSIS < 15 (0-50); LDL Cholesterol Calculated 82 mg/dL (<100); Potassium 3.7 mmol/L (3.4-5.1); Sodium 134 mmol/L (137-145); Total Protein 7.3 g/dL (6.3-8.2); Triglycerides 39 mg/dL (35-150)
[2019-07-27 09:28] LABS: TSH w/ Reflex to FT4 1.03 uIU/mL (0.47-4.68)
[2019-07-27 09:32] LABS: Ferritin 15.8 ng/mL (6.27-137)
== END ==
PROVIDERS: PCP Family Medicine; Visit Provider Family Medicine
DX: Z00.00 Encounter for general adult medical examination without abnormal findings (principal)
CPT/HCPCS: 36415; 80053; 80061; 82728; 84443; 85025

== ENCOUNTER → 2019-10-07 15:11 | Outpatient (CLI) | payer OTHER, SELFPAY ==
--- NOTE | 2019-10-07 | DI.MG.S_ITS ---
BILATERAL DIGITAL SCREENING MAMMOGRAM 3D/2D WITH CAD: 10/07/2019 CLINICAL: Routine screening. Family history of breast cancer. Comparison is made to exams dated: 08/19/2018 mammogram, 12/20/2016 mammogram, and 10/03/2015 mammogram - [facility]. The tissue of both breasts is extremely dense, which lowers the sensitivity of mammography. Current study was also evaluated with a Computer Aided Detection (CAD) system. No significant masses, calcifications, or other findings are seen in either breast. There has been no significant interval change. IMPRESSION: NEGATIVE There is no mammographic evidence of malignancy. A 1 year screening mammogram is recommended. This exam was interpreted at Station ID: [id number]. NOTE: For mammograms, a report in lay terms will be sent to the patient. Approximately 15% of breast malignancies will not be visualized mammographically. In the management of a palpable breast mass, a negative mammogram must not discourage biopsy of a clinically suspicious lesion. Electronically Signed By: Paris armstrong/darcy:10/07/2019 16:08:10 letter sent: Normal Exam ACR BI-RADS Category 1: Negative 3341F
== END ==
PROVIDERS: PCP Family Medicine; Referring Provider Obstetrics & Gynecology; Visit Provider Obstetrics & Gynecology
DX: Z12.31 Encounter for screening mammogram for malignant neoplasm of breast (principal); Z80.3 Family history of malignant neoplasm of breast
CPT/HCPCS: 77063; 77067

== ENCOUNTER → 2020-02-02 13:32 | Outpatient (CLI) | payer OTHER, SELFPAY ==
[2020-02-02 15:04] LABS: Appearance Urine UA CLEAR; Bilirubin Urine UA NEGATIVE (NEGATIVE); Color Urine UA YELLOW; Glucose Urine UA NEGATIVE (Negative); Ketones Urine UA NEGATIVE (NEGATIVE); Leukocyte Esterase Urine UA NEGATIVE (NEGATIVE); Nitrite Urine UA POSITIVE (Negative); Occult Blood Urine UA TRACE-LYSED (Negative); Protein Urine UA NEGATIVE (Negative); Urobilinogen Urine UA 0.2 E.U./dL (0.2)
[2020-02-02 15:18] LABS: Bacteria Urine None Seen; Culture Indicated Urine Specimen Cultured; RBC Urine 0-1/HPF (0-5/HPF); Squamous Epithelial Cell Urine 0-1 /HPF (0-5/HPF); WBC Urine 0-1/HPF (0-5/HPF); pH Urine UA 5.5 (4.5-8.0)
== END ==
PROVIDERS: PCP Family Medicine; Referring Provider Family Medicine; Visit Provider Family Medicine
DX: R30.0 Dysuria (principal)
CPT/HCPCS: 81003; 81015; 87086

== ENCOUNTER → 2020-09-29 07:10 | Outpatient (CLI) | payer OTHER, SELFPAY ==
[2020-09-29 08:05] LABS: Add Manual Diff / Slide Review NO; Basophils Absolute Auto 100 /uL (0-100); Basophils Percent Auto 0.8 % (0-2); Eosinophils Absolute Auto 200 /uL (0-450); Eosinophils Percent Auto 2.9 % (2-4); Hematocrit 39.1 % (36-46); Hemoglobin 13.2 g/dL (12.0-16.0); Lymphocytes Absolute Auto 1300 /uL (1100-4500); Lymphocytes Percent Auto 16.8 % (25-40); Mean Corpuscular HGB Conc 33.7 % (30-36); Mean Corpuscular Hemoglobin 35.5 PG (26-34); Mean Corpuscular Volume 105.4 fL (80-100); Monocytes Absolute Auto 500 /uL (0-900); Monocytes Percent Auto 6.8 % (3-14); Neutrophils Absolute Auto 5500 /uL (1500-7000); Neutrophils Percent Auto 72.7 % (50-75); Platelet Count 274 X10^3/uL (150-400); Red Blood Cell Count 3.71 X10^6/uL (4.0-5.2); Red Cell Distribution Width 12.7 % (11.6-14.8); White Blood Cell Count 7.6 X10^3/uL (4.5-11.0)
[2020-09-29 08:32] LABS: Alanine Aminotransferase 19 IU/L (<35); Albumin 4.2 g/dL (3.5-5.0); Albumin Globulin Ratio 1.4 (1.0-2.8); Alkaline Phosphatase 57 U/L (38-126); Aspartate Aminotransferase 37 IU/L (14-36); BUN Creatinine Ratio 20.3 (6-22); Bilirubin Total 0.6 mg/dL (0.2-1.3); Blood Urea Nitrogen 13 mg/dL (7-17); Calcium 8.9 mg/dL (8.4-10.2); Carbon Dioxide 29 mmol/L (22-32); Chloride 104 mmol/L (98-107); Cholesterol 197 mg/dL (140-199); Estimated Glomerular Filt Rate > 60.0 mL/min (>60); Globulin 2.9 g/dL (1.7-4.1); Glucose 96 mg/dL (70-100); HDL Cholesterol 107 mg/dL (40-60); HEMOLYSIS < 15 (0-50); LDL Cholesterol Calculated 81 mg/dL (<100); Potassium 4.7 mmol/L (3.4-5.1); Sodium 135 mmol/L (137-145); Total Protein 7.1 g/dL (6.3-8.2); Triglycerides 44 mg/dL (35-150)
[2020-09-29 09:02] LABS: TSH w/ Reflex to FT4 0.78 uIU/mL (0.47-4.68)
== END ==
PROVIDERS: PCP Family Medicine; Referring Provider Family Medicine; Visit Provider Family Medicine
DX: Z00.00 Encounter for general adult medical examination without abnormal findings (principal); Z13.1 Encounter for screening for diabetes mellitus; Z13.6 Encounter for screening for cardiovascular disorders
CPT/HCPCS: 36415; 80053; 80061; 84443; 85025

== ENCOUNTER → 2020-10-10 15:50 | Outpatient (CLI) | payer OTHER, SELFPAY ==
--- NOTE | 2020-10-10 | DI.MG.S_ITS ---
BILATERAL DIGITAL SCREENING MAMMOGRAM 3D/2D WITH CAD: 10/10/2020 CLINICAL: Routine screening. Family history of breast cancer. Comparison is made to exams dated: 10/07/2019 mammogram, 08/19/2018 mammogram, and 12/20/2016 mammogram - [facility]. The tissue of both breasts is extremely dense, which lowers the sensitivity of mammography. Current study was also evaluated with a Computer Aided Detection (CAD) system. No significant masses, calcifications, or other findings are seen in either breast. There has been no significant interval change. IMPRESSION: NEGATIVE There is no mammographic evidence of malignancy. A 1 year screening mammogram is recommended. This exam was interpreted at Station ID: [id number]. NOTE: For mammograms, a report in lay terms will be sent to the patient. Approximately 15% of breast malignancies will not be visualized mammographically. In the management of a palpable breast mass, a negative mammogram must not discourage biopsy of a clinically suspicious lesion. Electronically Signed By: Patel rudd/darcy:10/10/2020 18:07:04 copy to: Alisha Dorsey letter sent: Normal Exam ACR BI-RADS Category 1: Negative [id number]
== END ==
PROVIDERS: PCP Family Medicine; Referring Provider Family Medicine; Visit Provider Family Medicine
DX: Z12.31 Encounter for screening mammogram for malignant neoplasm of breast (principal); Z80.3 Family history of malignant neoplasm of breast
CPT/HCPCS: 77063; 77067

== ENCOUNTER 2020-12-06 07:30 | Outpatient (RCR) | payer OTHER, SELFPAY ==
--- NOTE | 2020-09-05 18:12 | PT.OIE ---
Current Diagnoses Pain in right shoulder (09/05/20) Weakness (09/05/20) Past Medical History (Last Reviewed 07/06/19 @ 14:08 by [facility] [place]) Genital warts (1991) Past Surgical History (Last Reviewed 07/06/19 @ 14:08 by [facility] [place]) History of third molar tooth extraction (1991) Status post delivery (06/10/04) Status post delivery (02/15/07) Visit Care Team Role Provider Type Aristeo Oliva MD Attending Provider Physician Primary Care Provider Referring Provider Specialty: Family Practice Address: [address] [place] [address] Email: [email or web address] Physical Therapy Initial Evaluation PT-OP-A Visit Information Start: 08/31/20 15:24 Freq: Status: Active Protocol: Document 09/05/20 14:04 [facility] (Rec: 09/05/20 16:02 [facility] [id number]) Out-Patient Physical Therapy Visit Information Visit Information Visit Type Initial Evaluation Visit Start Time 15:18 Visit Stop Time 16:01 Total Visit Minutes 43 Visit Number 1 Number of NAT INSTRUCTOR Visits 0 PT-OP-B Current Condition Start: 08/31/20 15:24 Freq: Status: Active Protocol: Document 09/05/20 14:04 [facility] (Rec: 09/05/20 16:02 [facility] [id number]) Current Condition History of Current Condition Onset Date 3 weeks ago Current Complaints R shoulder pain History of Current Condition Pt reports she was learning to ski and fell a lot and hurt her shoulder and tore L calf partially. Pt has been doing her own exercises and keeping active but has not run. She plans to try to run tomorrow. Shoulder is improving. When she wakes up int he AM, she limps some but hten it goes away. Treatment Goals Patient/Caregiver Goals wants to get exercises to rehab back to exercise PT-OP-C Subjective Start: 08/31/20 15:24 Freq: Status: Active Protocol: Document 09/05/20 14:04 [facility] (Rec: 09/05/20 16:02 [facility] [id number]) Patient Questionnaires Quick Dash- Upper Extremity Quick Dash UE Score 40.9 OP-PT Pain Assessment Location R shoulder Pain Location Details post scap & shoulder & ant GH joint Scale Used worst 7/10 when laying on it Description Aching,Dull,Tightness Frequency Intermittent Radiating Location arm goes numb when laying on it, pain lat elbow & lat extensors Variations/Patterns post side numbness, R neck pain Pain Aggravating Factors Lifting Other Pain Aggravating Factors sleeping on it, end range mobility PT-OP-F Manual Assessment Start: 08/31/20 15:24 Freq: Status: Active Protocol: Document 09/05/20 14:04 [facility] (Rec: 09/05/20 16:02 [facility] [id number]) Manual Assessments Soft Tissue Assessment Soft Tissue Mobility Assessment LS, UT, pec tight R Joint Mobility Assessment Joint Mobility Assessment R 1st rib elevated PT-OP-K Range of Motion Start: 08/31/20 15:24 Freq: Status: Active Protocol: Document 09/05/20 14:04 [facility] (Rec: 09/05/20 16:02 [facility] [id number]) Shoulder Goniometric Range of Motion Shoulder Right Active Flexion 138 Extension 60 Abduction 168 External Rotation at 90 degrees 100 Abduction External Rotation at 0 degrees Abduction 45 Internal Rotation Behind Back (text) T5 Left Active Flexion 155 Extension 62 Abduction 180 External Rotation at 90 degrees 103 Abduction External Rotation at 0 degrees Abduction 58 PT-OP-L Special Tests Start: 08/31/20 15:24 Freq: Status: Active Protocol: Document 09/05/20 14:04 [facility] (Rec: 09/05/20 16:02 [facility] [id number]) Special Tests Shoulder Special Tests Yergason's Biceps Test Results neg Sulcus Test Results neg Speed's Biceps Test Results positive Elliott Test Test Results negative Neer Impingement Test Results positive Ralph Zachariah Impingement Test Results neg Empty Can Test Results positive Drop Arm Rotator Cuff Test Results neg AC Joint Compression Test Results neg Neural Special Tests- Upper Body Median Nerve Tension Test Results neg Ulnar Nerve Tension Test Results neg Radial Nerve Tension Test Results neg PT-OP-M Strength Start: 08/31/20 15:24 Freq: Status: Active Protocol: Document 09/05/20 14:04 [facility] (Rec: 09/05/20 16:02 [facility] [id number]) Shoulder Strength Shoulder Manual Muscle Testing Right Flexion 4 Good Extension 4+ Good+ Abduction (C5) 4 Good External Rotation 4 Good Internal Rotation 5 Normal Horizontal Abduction 4 Good Horizontal Adduction 4 Good Left Flexion 5 Normal Extension 5 Normal Abduction (C5) 5 Normal External Rotation 5 Normal Internal Rotation 5 Normal Horizontal Abduction 5 Normal Horizontal Adduction 5 Normal PT-OP-T Assessment and Plan Start: 08/31/20 15:24 Freq: Status: Active Protocol: Document 09/05/20 14:04 [facility] (Rec: 09/05/20 16:02 [facility] [id number]) Physical Therapy Assessment Rehab Potential Rehabilitation Potential Excellent Evaluation Complexity Number of Personal Factors/Comorbidities 1-2 Number of Body Systems Impaired 4 or More Clinical Presentation at Evaluation Evolving Impairments Impairments Activity Tolerance,Functional Activities,Functional Mobility ,Pain,Posture,ROM,Soft Tissue Mobility,Strength Goals Three Short Term Goal (STG) Pt will have equal ROM of R shoulder to L to allow all activities. STG Duration 10/06/20 Skilled Nursing Goal (LTG) pt will be able to sleep on shoulder w/UE in any position she likes without inc pain. LTG Duration 11/03/20 Two Impairment Quick DASH 40.9 Rn Registry Goal (LTG) Pt will improve score to 0 so she can fully return to all activities without pain. LTG Duration 11/02/20 One Short Term Goal (STG) Pt will be indep w/HEP in order to strengthen & work on R shoulder ROM & stability. STG Duration 10/06/20 Skilled Nursing Goal (LTG) Pt will improve strength to 5/ 5 and EFT to 5/5 to show improved stability to do typical activities without pain. LTG Duration 11/03/20 Assessment Summary Assessment Pt presents with R shoulder pain after falling on shoulder multiple times while working on learning to ski. During this same session, she injured her L calf and was told she partially tore it. She has improved with ROM and shoulder strength by working on exercises at home,but still has some limitiatons in ROM& strength and overall inc pain w/some activities. She would benefit from PT to work on these deficits to return her to all activities without pain . Physical Therapy Plan Frequency and Duration Frequency of Treatment 1-2x/week Duration of Treatment 2 months Plan of Care Start Date 09/05/20 Plan of Care End Date 11/03/20 Therapeutic Interventions Therapeutic Interventions Aquatic Therapy,Gait Training, Home Exercise Program,Joint Mobilizations,Manual Therapy, Neuromuscular Re-education, Patient/Caregiver Education, Self-Care/Home Management,Soft Tissue Mobilization,Taping, Therapeutic Activities, Therapeutic Exercises Modalities Cold Pack/Ice Massage,Electric Stimulation,Hot Packs, Infrared Therapy,Iontophoresis ,Ultrasound Next Visit Focus/Plan Next Note Type Treatment Note
--- NOTE | 2020-09-05 18:12 | PT.OPPOC ---
Physical, Occupational & Speech Therapy At [facility] Current Diagnoses Pain in right shoulder (09/05/20) Weakness (09/05/20) Visit Care Team Role Provider Type Aristeo Oliva MD Attending Provider Physician Primary Care Provider Referring Provider Specialty: Family Practice Address: [address] [place] [address], [id number] Email: [email or web address] Plan Of Care PT-OP-T Assessment and Plan Start: 08/31/20 15:24 Freq: Status: Active Protocol: Document 09/05/20 14:04 [facility] (Rec: 09/05/20 16:02 [facility] [id number]) Physical Therapy Assessment Rehab Potential Rehabilitation Potential Excellent Evaluation Complexity Number of Personal Factors/Comorbidities 1-2 Number of Body Systems Impaired 4 or More Clinical Presentation at Evaluation Evolving Impairments Impairments Activity Tolerance,Functional Activities,Functional Mobility ,Pain,Posture,ROM,Soft Tissue Mobility,Strength Goals Three Short Term Goal (STG) Pt will have equal ROM of R shoulder to L to allow all activities. STG Duration 10/06/20 Science Instructor Goal (LTG) pt will be able to sleep on shoulder w/UE in any position she likes without inc pain. LTG Duration 11/03/20 Two Impairment Quick DASH 40.9 Fpc Goal (LTG) Pt will improve score to 0 so she can fully return to all activities without pain. LTG Duration 11/02/20 One Short Term Goal (STG) Pt will be indep w/HEP in order to strengthen & work on R shoulder ROM & stability. STG Duration 10/06/20 Science Instructor Goal (LTG) Pt will improve strength to 5/ 5 and EFT to 5/5 to show improved stability to do typical activities without pain. LTG Duration 11/03/20 Assessment Summary Assessment Pt presents with R shoulder pain after falling on shoulder multiple times while working on learning to ski. During this same session, she injured her L calf and was told she partially tore it. She has improved with ROM and shoulder strength by working on exercises at home,but still has some limitiatons in ROM& strength and overall inc pain w/some activities. She would benefit from PT to work on these deficits to return her to all activities without pain . Physical Therapy Plan Frequency and Duration Frequency of Treatment 1-2x/week Duration of Treatment 2 months Plan of Care Start Date 09/05/20 Plan of Care End Date 11/03/20 Therapeutic Interventions Therapeutic Interventions Aquatic Therapy,Gait Training, Home Exercise Program,Joint Mobilizations,Manual Therapy, Neuromuscular Re-education, Patient/Caregiver Education, Self-Care/Home Management,Soft Tissue Mobilization,Taping, Therapeutic Activities, Therapeutic Exercises Modalities Cold Pack/Ice Massage,Electric Stimulation,Hot Packs, Infrared Therapy,Iontophoresis ,Ultrasound Next Visit Focus/Plan Next Note Type Treatment Note Plan of Care Dates Plan of Care Start Date 09/05/20 Plan of Care End Date 11/03/20 Electronically Signed by: Baylee Mccloud, PT 09/05/20 [id number] Please Sign and Return: I have reviewed this Plan of Care and certify that the skilled therapy services above are required to meet the patient?s needs. Physician Signature Date Printed Name and Credentials Clinical Instructor Signature Printed Name and Credentials
--- NOTE | 2020-09-13 18:16 | PT.OTN ---
Current Diagnoses Pain in right shoulder (09/13/20) Weakness (09/13/20) Physical Therapy Treatment Note PT-OP-A Visit Information Start: 08/31/20 15:24 Freq: Status: Active Protocol: Document 09/13/20 07:30 [facility] (Rec: 09/13/20 12:10 [facility] [id number]) Out-Patient Physical Therapy Visit Information Visit Information Visit Type Treatment Note Visit Start Time 07:31 Visit Stop Time 08:15 Total Visit Minutes 44 Visit Number 2 Number of DIRECTOR CLINICAL APPLICATIONS Visits 0 PT-OP-B Current Condition Start: 08/31/20 15:24 Freq: Status: Active Protocol: Document 09/05/20 14:04 [facility] (Rec: 09/05/20 16:02 [facility] [id number]) Current Condition History of Current Condition Onset Date 3 weeks ago Current Complaints R shoulder pain History of Current Condition Pt reports she was learning to ski and fell a lot and hurt her shoulder and tore L calf partially. Pt has been doing her own exercises and keeping active but has not run. She plans to try to run tomorrow. Shoulder is improving. When she wakes up int he AM, she limps some but hten it goes away. Treatment Goals Patient/Caregiver Goals wants to get exercises to rehab back to exercise PT-OP-C Subjective Start: 08/31/20 15:24 Freq: Status: Active Protocol: Document 09/13/20 07:30 [facility] (Rec: 09/13/20 12:10 [facility] [id number]) OP-PT Subjective Patient Comments Patient Comments Pt reports doing exercises still and doing a little better. Was able to do a run with a friend (3 miles with only 2 stop breaks to walk). PT-OP-F Manual Assessment Start: 08/31/20 15:24 Freq: Status: Active Protocol: Document 09/05/20 14:04 [facility] (Rec: 09/05/20 16:02 [facility] [id number]) Manual Assessments Soft Tissue Assessment Soft Tissue Mobility Assessment LS, UT, pec tight R Joint Mobility Assessment Joint Mobility Assessment R 1st rib elevated PT-OP-K Range of Motion Start: 08/31/20 15:24 Freq: Status: Active Protocol: Document 09/05/20 14:04 [facility] (Rec: 09/05/20 16:02 [facility] [id number]) Shoulder Goniometric Range of Motion Shoulder Right Active Flexion 138 Extension 60 Abduction 168 External Rotation at 90 degrees 100 Abduction External Rotation at 0 degrees Abduction 45 Internal Rotation Behind Back (text) T5 Left Active Flexion 155 Extension 62 Abduction 180 External Rotation at 90 degrees 103 Abduction External Rotation at 0 degrees Abduction 58 PT-OP-L Special Tests Start: 08/31/20 15:24 Freq: Status: Active Protocol: Document 09/05/20 14:04 [facility] (Rec: 09/05/20 16:02 [facility] [id number]) Special Tests Shoulder Special Tests Yergason's Biceps Test Results neg Sulcus Test Results neg Speed's Biceps Test Results positive Boring Test Test Results negative Neer Impingement Test Results positive Ralph Zachariah Impingement Test Results neg Empty Can Test Results positive Drop Arm Rotator Cuff Test Results neg AC Joint Compression Test Results neg Neural Special Tests- Upper Body Median Nerve Tension Test Results neg Ulnar Nerve Tension Test Results neg Radial Nerve Tension Test Results neg PT-OP-M Strength Start: 08/31/20 15:24 Freq: Status: Active Protocol: Document 09/05/20 14:04 [facility] (Rec: 09/05/20 16:02 [facility] [id number]) Shoulder Strength Shoulder Manual Muscle Testing Right Flexion 4 Good Extension 4+ Good+ Abduction (C5) 4 Good External Rotation 4 Good Internal Rotation 5 Normal Horizontal Abduction 4 Good Horizontal Adduction 4 Good Left Flexion 5 Normal Extension 5 Normal Abduction (C5) 5 Normal External Rotation 5 Normal Internal Rotation 5 Normal Horizontal Abduction 5 Normal Horizontal Adduction 5 Normal PT-OP-Q Treatments Start: 08/31/20 15:24 Freq: Status: Active Protocol: Document 09/13/20 07:30 [facility] (Rec: 09/13/20 12:10 [facility] [id number]) Therapeutic Exercises Supine Exercises 2 Supine Exercise Name Tbar AAROM flex Side right Comments focus on end range mobility 1 Supine Exercise Name Tbar AAROM abd Side right Comments focus on end range mobility Standing Exercises 4 Standing Exercise Name corner pec stretch Side bilateral Reps/Minutes 30 sec x2 3 Standing Exercise Name B shoulder ext Side bilateral Equipment Used L2 Reps/Minutes 20 Comments focus on scap motion 2 Standing Exercise Name B ER Side bilateral Equipment Used L2 Reps/Minutes 20 Comments focus on scap motion Manual Therapy Treatment Soft Tissue Mobilization 5 Body Location pec R Mobilization Type Rolling Intensity/Depth Moderate Body Position Supine 4 Body Location scalenes R Mobilization Type Rolling Intensity/Depth Moderate Body Position Supine Joint Mobilizations 5 Joint GH Direction distraction Grade III Body Position Supine Comments progressed to w/flex Self-Care/Home Management Treatment Education Other Education edu to warm up before running. walk with quickening pace prior to started to run fro about 1 mile PT-OP-T Assessment and Plan Start: 08/31/20 15:24 Freq: Status: Active Protocol: Document 09/13/20 07:30 [facility] (Rec: 09/13/20 12:10 [facility] [id number]) Physical Therapy Assessment Goals Three Short Term Goal (STG) Pt will have equal ROM of R shoulder to L to allow all activities. STG Duration 10/06/20 Intermediate Goal (LTG) pt will be able to sleep on shoulder w/UE in any position she likes without inc pain. LTG Duration 11/03/20 Two Impairment Quick DASH 40.9 Intermediate Goal (LTG) Pt will improve score to 0 so she can fully return to all activities without pain. LTG Duration 11/02/20 One Short Term Goal (STG) Pt will be indep w/HEP in order to strengthen & work on R shoulder ROM & stability. STG Duration 10/06/20 Intermediate Goal (LTG) Pt will improve strength to 5/ 5 and EFT to 5/5 to show improved stability to do typical activities without pain. LTG Duration 11/03/20 Assessment Summary Assessment Pt did well with exercises but did require cuieng for posture & scap movement during exercises. Able to tolerate end range AAROm with only some discomfort. Significant R pec tightness and scalenes which may be related to arm falling asleep often at night. Physical Therapy Plan Frequency and Duration Frequency of Treatment 1-2x/week Duration of Treatment 2 months Plan of Care Start Date 09/05/20 Plan of Care End Date 11/03/20 Next Visit Focus/Plan Next Note Type Treatment Note Next Visit Plan review exercises, work on end range mobility w/scap & GH mobs,foam roll, prone strengthening
--- NOTE | 2020-09-21 09:47 | PT.OTN ---
Current Diagnoses Pain in right shoulder (09/21/20) Weakness (09/21/20) Physical Therapy Treatment Note PT-OP-A Visit Information Start: 08/31/20 15:24 Freq: Status: Active Protocol: Document 09/21/20 09:26 [facility] (Rec: 09/21/20 09:47 [facility] [id number]) Out-Patient Physical Therapy Visit Information Visit Information Visit Type Treatment Note Visit Start Time 08:20 Visit Stop Time 09:03 Total Visit Minutes 43 Visit Number 3 Number of SOAP CHIPPER Visits 0 PT-OP-B Current Condition Start: 08/31/20 15:24 Freq: Status: Active Protocol: Document 09/05/20 14:04 [facility] (Rec: 09/05/20 16:02 [facility] [id number]) Current Condition History of Current Condition Onset Date 3 weeks ago Current Complaints R shoulder pain History of Current Condition Pt reports she was learning to ski and fell a lot and hurt her shoulder and tore L calf partially. Pt has been doing her own exercises and keeping active but has not run. She plans to try to run tomorrow. Shoulder is improving. When she wakes up int he AM, she limps some but hten it goes away. Treatment Goals Patient/Caregiver Goals wants to get exercises to rehab back to exercise PT-OP-C Subjective Start: 08/31/20 15:24 Freq: Status: Active Protocol: Document 09/21/20 09:26 [facility] (Rec: 09/21/20 09:47 [facility] [id number]) OP-PT Subjective Patient Comments Patient Comments Pt reprots shoulder feels a little tight but she did a lot of lifting. PT-OP-F Manual Assessment Start: 08/31/20 15:24 Freq: Status: Active Protocol: Document 09/05/20 14:04 [facility] (Rec: 09/05/20 16:02 [facility] [id number]) Manual Assessments Soft Tissue Assessment Soft Tissue Mobility Assessment LS, UT, pec tight R Joint Mobility Assessment Joint Mobility Assessment R 1st rib elevated PT-OP-K Range of Motion Start: 08/31/20 15:24 Freq: Status: Active Protocol: Document 09/05/20 14:04 [facility] (Rec: 09/05/20 16:02 [facility] [id number]) Shoulder Goniometric Range of Motion Shoulder Right Active Flexion 138 Extension 60 Abduction 168 External Rotation at 90 degrees 100 Abduction External Rotation at 0 degrees Abduction 45 Internal Rotation Behind Back (text) T5 Left Active Flexion 155 Extension 62 Abduction 180 External Rotation at 90 degrees 103 Abduction External Rotation at 0 degrees Abduction 58 PT-OP-L Special Tests Start: 08/31/20 15:24 Freq: Status: Active Protocol: Document 09/05/20 14:04 [facility] (Rec: 09/05/20 16:02 [facility] [id number]) Special Tests Shoulder Special Tests Yergason's Biceps Test Results neg Sulcus Test Results neg Speed's Biceps Test Results positive [place] Test Test Results negative Neer Impingement Test Results positive Ralph Zachariah Impingement Test Results neg Empty Can Test Results positive Drop Arm Rotator Cuff Test Results neg AC Joint Compression Test Results neg Neural Special Tests- Upper Body Median Nerve Tension Test Results neg Ulnar Nerve Tension Test Results neg Radial Nerve Tension Test Results neg PT-OP-M Strength Start: 08/31/20 15:24 Freq: Status: Active Protocol: Document 09/05/20 14:04 [facility] (Rec: 09/05/20 16:02 [facility] [id number]) Shoulder Strength Shoulder Manual Muscle Testing Right Flexion 4 Good Extension 4+ Good+ Abduction (C5) 4 Good External Rotation 4 Good Internal Rotation 5 Normal Horizontal Abduction 4 Good Horizontal Adduction 4 Good Left Flexion 5 Normal Extension 5 Normal Abduction (C5) 5 Normal External Rotation 5 Normal Internal Rotation 5 Normal Horizontal Abduction 5 Normal Horizontal Adduction 5 Normal PT-OP-Q Treatments Start: 08/31/20 15:24 Freq: Status: Active Protocol: Document 09/21/20 09:26 [facility] (Rec: 09/21/20 09:47 [facility] [id number]) Therapeutic Exercises Standing Exercises 3 Standing Exercise Name B shoulder ext Side bilateral Equipment Used L3 Reps/Minutes 15 Comments focus on scap motion Manual Therapy Treatment Soft Tissue Mobilization 5 Body Location pec R Mobilization Type Rolling Intensity/Depth Moderate Body Position Supine Comments w/overhead motion 4 Body Location R infraspinatus & rhomboids & rear delt Mobilization Type Rolling Intensity/Depth Moderate Body Position Prone 3 Body Location R lats & teres Mobilization Type Rolling,Strumming,Sustained Pressure Intensity/Depth Moderate Body Position Supine Comments w/overhead flex Joint Mobilizations 5 Joint GH Direction distraction & lat gapping FM Grade III Body Position Supine 4 Joint scap Direction all directions Grade IV Body Position Prone Self-Care/Home Management Treatment Education Other Education discussed yoga stretches that can help PT-OP-T Assessment and Plan Start: 08/31/20 15:24 Freq: Status: Active Protocol: Document 09/21/20 09:26 [facility] (Rec: 09/21/20 09:47 [facility] [id number]) Physical Therapy Assessment Goals Three Short Term Goal (STG) Pt will have equal ROM of R shoulder to L to allow all activities. STG Duration 10/06/20 Senior Care Goal (LTG) pt will be able to sleep on shoulder w/UE in any position she likes without inc pain. LTG Duration 11/03/20 Two Impairment Quick DASH 40.9 Mold Construction Supervisor Goal (LTG) Pt will improve score to 0 so she can fully return to all activities without pain. LTG Duration 11/02/20 One Short Term Goal (STG) Pt will be indep w/HEP in order to strengthen & work on R shoulder ROM & stability. STG Duration 10/06/20 Mold Construction Supervisor Goal (LTG) Pt will improve strength to 5/ 5 and EFT to 5/5 to show improved stability to do typical activities without pain. LTG Duration 11/03/20 Assessment Summary Assessment Pt improved passive abd and flex prior to tightness felt with manual treatment. Pt had improved scap motion after manual treatment. REquired min cueing with ext and was given more difficult band for home. Physical Therapy Plan Frequency and Duration Frequency of Treatment 1-2x/week Duration of Treatment 2 months Plan of Care Start Date 09/05/20 Plan of Care End Date 11/03/20 Next Visit Focus/Plan Next Note Type Treatment Note Next Visit Plan reivew exercises as needed, add faom roll & prone strengthening, further lat & teres releases
--- NOTE | 2020-09-27 08:24 | PT.OTN ---
Current Diagnoses Pain in right shoulder (09/27/20) Weakness (09/27/20) Physical Therapy Treatment Note PT-OP-A Visit Information Start: 08/31/20 15:24 Freq: Status: Active Protocol: Document 09/27/20 07:30 [facility] (Rec: 09/27/20 08:24 [facility] [id number]) Out-Patient Physical Therapy Visit Information Visit Information Visit Type Treatment Note Visit Start Time 07:31 Visit Stop Time 08:13 Total Visit Minutes 42 Visit Number 4 Number of SAFETY LEADER Visits 0 PT-OP-B Current Condition Start: 08/31/20 15:24 Freq: Status: Active Protocol: Document 09/05/20 14:04 [facility] (Rec: 09/05/20 16:02 [facility] [id number]) Current Condition History of Current Condition Onset Date 3 weeks ago Current Complaints R shoulder pain History of Current Condition Pt reports she was learning to ski and fell a lot and hurt her shoulder and tore L calf partially. Pt has been doing her own exercises and keeping active but has not run. She plans to try to run tomorrow. Shoulder is improving. When she wakes up int he AM, she limps some but hten it goes away. Treatment Goals Patient/Caregiver Goals wants to get exercises to rehab back to exercise PT-OP-C Subjective Start: 08/31/20 15:24 Freq: Status: Active Protocol: Document 09/27/20 07:30 [facility] (Rec: 09/27/20 08:24 [facility] [id number]) OP-PT Subjective Patient Comments Patient Comments Pt reports she feels like exercises are helping & she is working on scap motion w. lifts Patient Reported Progress Improving PT-OP-F Manual Assessment Start: 08/31/20 15:24 Freq: Status: Active Protocol: Document 09/05/20 14:04 [facility] (Rec: 09/05/20 16:02 [facility] [id number]) Manual Assessments Soft Tissue Assessment Soft Tissue Mobility Assessment LS, UT, pec tight R Joint Mobility Assessment Joint Mobility Assessment R 1st rib elevated PT-OP-K Range of Motion Start: 08/31/20 15:24 Freq: Status: Active Protocol: Document 09/05/20 14:04 [facility] (Rec: 09/05/20 16:02 [facility] [id number]) Shoulder Goniometric Range of Motion Shoulder Right Active Flexion 138 Extension 60 Abduction 168 External Rotation at 90 degrees 100 Abduction External Rotation at 0 degrees Abduction 45 Internal Rotation Behind Back (text) T5 Left Active Flexion 155 Extension 62 Abduction 180 External Rotation at 90 degrees 103 Abduction External Rotation at 0 degrees Abduction 58 PT-OP-L Special Tests Start: 08/31/20 15:24 Freq: Status: Active Protocol: Document 09/05/20 14:04 [facility] (Rec: 09/05/20 16:02 [facility] [id number]) Special Tests Shoulder Special Tests Yergason's Biceps Test Results neg Sulcus Test Results neg Speed's Biceps Test Results positive [place] Test Test Results negative Neer Impingement Test Results positive Ralph Zachariah Impingement Test Results neg Empty Can Test Results positive Drop Arm Rotator Cuff Test Results neg AC Joint Compression Test Results neg Neural Special Tests- Upper Body Median Nerve Tension Test Results neg Ulnar Nerve Tension Test Results neg Radial Nerve Tension Test Results neg PT-OP-M Strength Start: 08/31/20 15:24 Freq: Status: Active Protocol: Document 09/05/20 14:04 [facility] (Rec: 09/05/20 16:02 [facility] [id number]) Shoulder Strength Shoulder Manual Muscle Testing Right Flexion 4 Good Extension 4+ Good+ Abduction (C5) 4 Good External Rotation 4 Good Internal Rotation 5 Normal Horizontal Abduction 4 Good Horizontal Adduction 4 Good Left Flexion 5 Normal Extension 5 Normal Abduction (C5) 5 Normal External Rotation 5 Normal Internal Rotation 5 Normal Horizontal Abduction 5 Normal Horizontal Adduction 5 Normal PT-OP-Q Treatments Start: 08/31/20 15:24 Freq: Status: Active Protocol: Document 09/27/20 07:30 [facility] (Rec: 09/27/20 08:24 [facility] [id number]) Therapeutic Exercises Supine Exercises 2 Supine Exercise Name foam roll: flex, abd, Habd Side bilateral Reps/Minutes 10 Prone Exercises ER Prone Exercise Name 90/90 over tball Side bilateral Reps/Minutes 10 scaption Prone Exercise Name over tball Side bilateral Reps/Minutes 15 1 Prone Exercise Name Habd over tball Side bilateral Equipment Used 2# Reps/Minutes 15 Manual Therapy Treatment Soft Tissue Mobilization 3 Body Location R lats & teres Mobilization Type Rolling,Strumming,Sustained Pressure Intensity/Depth Moderate Body Position Supine Comments w/overhead flex Joint Mobilizations 5 Joint GH Direction distraction, inf glide, post glide FM Grade III Body Position Supine 3 Joint AC Direction gapping FM PT-OP-T Assessment and Plan Start: 08/31/20 15:24 Freq: Status: Active Protocol: Document 09/27/20 07:30 [facility] (Rec: 09/27/20 08:24 [facility] [id number]) Physical Therapy Assessment Goals Three Short Term Goal (STG) Pt will have equal ROM of R shoulder to L to allow all activities. STG Duration 10/06/20 Care Home Goal (LTG) pt will be able to sleep on shoulder w/UE in any position she likes without inc pain. LTG Duration 11/03/20 Two Impairment Quick DASH 40.9 Care Home Goal (LTG) Pt will improve score to 0 so she can fully return to all activities without pain. LTG Duration 11/02/20 One Short Term Goal (STG) Pt will be indep w/HEP in order to strengthen & work on R shoulder ROM & stability. STG Duration 10/06/20 Audio Visual Technician Goal (LTG) Pt will improve strength to 5/ 5 and EFT to 5/5 to show improved stability to do typical activities without pain. LTG Duration 11/03/20 Assessment Summary Assessment Pt had challenge with prone exercises and did require cuieng occ re: scap motion. Pt had improved ROM aftre manual treatment. Physical Therapy Plan Frequency and Duration Frequency of Treatment 1-2x/week Duration of Treatment 2 months Plan of Care Start Date 09/05/20 Plan of Care End Date 11/03/20 Next Visit Focus/Plan Next Note Type Treatment Note Next Visit Plan review prone exercises & foam roll & cont to release lats
--- NOTE | 2020-09-29 10:35 | PT.OTRE ---
Current Diagnoses Pain in right shoulder (09/29/20) Other abnormalities of gait and mobility (09/29/20) Weakness (09/29/20) Strain of other muscle(s) and tendon(s) at lower leg level, left leg, subsequent encounter (09/29/20) Past Medical History (Last Reviewed 07/06/19 @ 14:08 by [facility]) Genital warts (1991) Surgical History (Last Reviewed 07/06/19 @ 14:08 by [facility]) History of third molar tooth extraction (1991) Status post delivery (06/10/04) Status post delivery (02/15/07) Visit Care Team Role Provider Type Aristeo Oliva MD Attending Provider Physician Primary Care Provider Referring Provider Specialty: [facility] Address: [address] [place] [address] Email: [email or web address] Physical Therapy Re-Evaluation PT-OP-A Visit Information Start: 08/31/20 15:24 Freq: Status: Active Protocol: Document 09/29/20 07:29 [facility] (Rec: 09/29/20 08:27 [facility] [id number]) Out-Patient Physical Therapy Visit Information Visit Information Visit Type Re-Evaluation Visit Start Time 07:32 Visit Stop Time 08:15 Total Visit Minutes 43 Visit Number 5 Number of FLIGHT OPERATIONS ENGINEER Visits 0 PT-OP-B Current Condition Start: 08/31/20 15:24 Freq: Status: Active Protocol: Document 09/05/20 14:04 [facility] (Rec: 09/05/20 16:02 [facility] [id number]) Current Condition History of Current Condition Onset Date 3 weeks ago Current Complaints R shoulder pain History of Current Condition Pt reports she was learning to ski and fell a lot and hurt her shoulder and tore L calf partially. Pt has been doing her own exercises and keeping active but has not run. She plans to try to run tomorrow. Shoulder is improving. When she wakes up int he AM, she limps some but hten it goes away. Treatment Goals Patient/Caregiver Goals wants to get exercises to rehab back to exercise PT-OP-C Subjective Start: 08/31/20 15:24 Freq: Status: Active Protocol: Document 09/29/20 07:29 [facility] (Rec: 09/29/20 08:27 [facility] [id number]) OP-PT Subjective Patient Comments Patient Comments Pt reprots doing 7 mile run w/ some tightness mostly at end OP-PT Pain Assessment Location calf Pain Location Details L calf & around ATFL Description Tightness Frequency Intermittent Other Pain Aggravating Factors running, walking backwards PT-OP-F Manual Assessment Start: 08/31/20 15:24 Freq: Status: Active Protocol: Document 09/29/20 07:29 [facility] (Rec: 09/29/20 08:27 [facility] [id number]) Manual Assessments Soft Tissue Assessment Soft Tissue Mobility Assessment tightness tightness of L calf and HS Joint Mobility Assessment Joint Mobility Assessment dec distal fibular mobility PT-OP-K Range of Motion Start: 08/31/20 15:24 Freq: Status: Active Protocol: Document 09/29/20 07:29 [facility] (Rec: 09/29/20 08:27 [facility] [id number]) Ankle and Foot Goniometric Range of Motion Ankle and Foot Measured in Degrees Right Dorsiflexion with Knee Flexed 10 Dorsiflexion with Knee Extended 2 Plantarflexion 60 Inversion 31 Eversion 24 Left Dorsiflexion with Knee Flexed 5 Dorsiflexion with Knee Extended 0 Plantarflexion 58 Inversion 21 Eversion 20 PT-OP-L Special Tests Start: 08/31/20 15:24 Freq: Status: Active Protocol: Document 09/05/20 14:04 [facility] (Rec: 09/05/20 16:02 [facility] [id number]) Special Tests Shoulder Special Tests Yergason's Biceps Test Results neg Sulcus Test Results neg Speed's Biceps Test Results positive Baldwin Test Test Results negative Neer Impingement Test Results positive Ralph Zachariah Impingement Test Results neg Empty Can Test Results positive Drop Arm Rotator Cuff Test Results neg AC Joint Compression Test Results neg Neural Special Tests- Upper Body Median Nerve Tension Test Results neg Ulnar Nerve Tension Test Results neg Radial Nerve Tension Test Results neg PT-OP-M Strength Start: 08/31/20 15:24 Freq: Status: Active Protocol: Document 09/29/20 07:29 [facility] (Rec: 09/29/20 08:27 [facility] [id number]) Hip Strength Hip Manual Muscle Testing Right Flexion (L2) 5 Normal Extension (S1) 5 Normal Abduction 5 Normal Adduction 5 Normal External Rotation 5 Normal Internal Rotation 4 Good Left Flexion (L2) 4+ Good+ Extension (S1) 4 Good Abduction 5 Normal Adduction 5 Normal External Rotation 5 Normal Internal Rotation 4 Good Knee Strength Knee Manual Muscle Testing Right Flexion (S2) 5 Normal Extension (L3) 5 Normal Left Flexion (S2) 4 Good Extension (L3) 5 Normal Ankle/Foot Strength Ankle and Foot Manual Muscle Testing Right Dorsiflexion (L4) 5 Normal Plantarflexion (S1) 5 Normal Inversion 5 Normal Eversion (S1) 5 Normal Left Dorsiflexion (L4) 5 Normal Plantarflexion (S1) 5 Normal Inversion 4 Good Eversion (S1) 4+ Good+ Comments very tight by 3 calf raises PT-OP-Q Treatments Start: 08/31/20 15:24 Freq: Status: Active Protocol: Document 09/29/20 07:29 [facility] (Rec: 09/29/20 08:27 [facility] [id number]) Therapeutic Exercises Supine Exercises 1 Supine Exercise Name active HS stretch along wall Side left Standing Exercises 4 Standing Exercise Name bottoms up HS stretch Side bilateral Reps/Minutes 10 3 Standing Exercise Name eccentric lower L calf Reps/Minutes 5 Manual Therapy Treatment Soft Tissue Mobilization 1 Body Location calf Mobilization Type Rolling,Sustained Pressure Intensity/Depth Moderate Joint Mobilizations 5 Joint GH Direction inf FM 4 Joint scap Direction all directions Grade IV Body Position Sidelying 3 Joint AC Direction gapping FM 2 Joint L SC Direction gapping PT-OP-T Assessment and Plan Start: 08/31/20 15:24 Freq: Status: Active Protocol: Document 09/29/20 07:29 [facility] (Rec: 09/29/20 08:27 [facility] [id number]) Physical Therapy Assessment Goals Four Short Term Goal (STG) Pt will have full L ankle range without pain. STG Duration 10/27/20 [facility] Goal (LTG) Pt will return to running and skiing w/o inc pain or tightness in L calf. LTG Duration 11/27/20 Three Short Term Goal (STG) Pt will have equal ROM of R shoulder to L to allow all activities. STG Duration 10/06/20 [facility] Goal (LTG) pt will be able to sleep on shoulder w/UE in any position she likes without inc pain. LTG Duration 11/03/20 Two Impairment Quick DASH 40.9 [facility] Goal (LTG) Pt will improve score to 0 so she can fully return to all activities without pain. LTG Duration 11/02/20 One Short Term Goal (STG) Pt will be indep w/HEP in order to strengthen & work on R shoulder ROM & stability. STG Duration 10/06/20 Lead Vulcanizing Operator Goal (LTG) Pt will improve strength to 5/ 5 and EFT to 5/5 to show improved stability to do typical activities without pain. LTG Duration 11/03/20 Assessment Summary Assessment Pt presents w/L calf pain and cont R shoulder pain, both which are improving but are limiting her return to full activity including runing and skiing for her. She would benefit from PT to work on gait, strength, ROM, flexibility and dec pain. Physical Therapy Plan Frequency and Duration Frequency of Treatment 1-2x/week Duration of Treatment 2 months Plan of Care Start Date 09/29/20 Plan of Care End Date 11/27/20 Therapeutic Interventions Therapeutic Interventions Aquatic Therapy,Balance Training,Gait Training,Home Exercise Program,Joint Mobilizations,Manual Therapy, Neuromuscular Re-education, Patient/Caregiver Education, Self-Care/Home Management,Soft Tissue Mobilization,Taping, Therapeutic Activities, Therapeutic Exercises Modalities Cold Pack/Ice Massage,Electric Stimulation,Hot Packs, Infrared Therapy,Iontophoresis ,Ultrasound Next Visit Focus/Plan Next Note Type Treatment Note Next Visit Plan review prone exercises & foam roll & cont to release lats & work on calf mobility
--- NOTE | 2020-09-29 10:35 | PT.OPPOC ---
Physical, Occupational & Speech Therapy At [facility] Current Diagnoses Pain in right shoulder (09/29/20) Other abnormalities of gait and mobility (09/29/20) Weakness (09/29/20) Strain of other muscle(s) and tendon(s) at lower leg level, left leg, subsequent encounter (09/29/20) Visit Care Team Role Provider Type Aristeo Oliva MD Attending Provider Physician Primary Care Provider Referring Provider Specialty: [facility] Address: [address] [place] [address], [id number] Email: [email or web address] Plan Of Care PT-OP-T Assessment and Plan Start: 08/31/20 15:24 Freq: Status: Active Protocol: Document 09/29/20 07:29 [facility] (Rec: 09/29/20 08:27 [facility] [id number]) Physical Therapy Assessment Goals Four Short Term Goal (STG) Pt will have full L ankle range without pain. STG Duration 10/27/20 Restaurant Cook Goal (LTG) Pt will return to running and skiing w/o inc pain or tightness in L calf. LTG Duration 11/27/20 Three Short Term Goal (STG) Pt will have equal ROM of R shoulder to L to allow all activities. STG Duration 10/06/20 Retirement Goal (LTG) pt will be able to sleep on shoulder w/UE in any position she likes without inc pain. LTG Duration 11/03/20 Two Impairment Quick DASH 40.9 Restaurant Cook Goal (LTG) Pt will improve score to 0 so she can fully return to all activities without pain. LTG Duration 11/02/20 One Short Term Goal (STG) Pt will be indep w/HEP in order to strengthen & work on R shoulder ROM & stability. STG Duration 10/06/20 Restaurant Cook Goal (LTG) Pt will improve strength to 5/ 5 and EFT to 5/5 to show improved stability to do typical activities without pain. LTG Duration 11/03/20 Assessment Summary Assessment Pt presents w/L calf pain and cont R shoulder pain, both which are improving but are limiting her return to full activity including runing and skiing for her. She would benefit from PT to work on gait, strength, ROM, flexibility and dec pain. Physical Therapy Plan Frequency and Duration Frequency of Treatment 1-2x/week Duration of Treatment 2 months Plan of Care Start Date 09/29/20 Plan of Care End Date 11/27/20 Therapeutic Interventions Therapeutic Interventions Aquatic Therapy,Balance Training,Gait Training,Home Exercise Program,Joint Mobilizations,Manual Therapy, Neuromuscular Re-education, Patient/Caregiver Education, Self-Care/Home Management,Soft Tissue Mobilization,Taping, Therapeutic Activities, Therapeutic Exercises Modalities Cold Pack/Ice Massage,Electric Stimulation,Hot Packs, Infrared Therapy,Iontophoresis ,Ultrasound Next Visit Focus/Plan Next Note Type Treatment Note Next Visit Plan review prone exercises & foam roll & cont to release lats & work on calf mobility Plan of Care Dates Plan of Care Start Date 09/29/20 Plan of Care End Date 11/27/20 Electronically Signed by: Baylee Mccloud, PT 09/29/20 1038 Please Sign and Return: I have reviewed this Plan of Care and certify that the skilled therapy services above are required to meet the patient?s needs. Physician Signature Date Printed Name and Credentials Clinical Instructor Signature Printed Name and Credentials
--- NOTE | 2020-10-04 09:04 | PT.OTN ---
Current Diagnoses Pain in right shoulder (10/04/20) Other abnormalities of gait and mobility (10/04/20) Weakness (10/04/20) Strain of other muscle(s) and tendon(s) at lower leg level, left leg, subsequent encounter (10/04/20) Physical Therapy Treatment Note PT-OP-A Visit Information Start: 08/31/20 15:24 Freq: Status: Active Protocol: Document 10/04/20 07:27 [facility] (Rec: 10/04/20 09:03 [facility] [id number]) Out-Patient Physical Therapy Visit Information Visit Information Visit Type Treatment Note Visit Start Time 07:31 Visit Stop Time 08:15 Total Visit Minutes 44 Visit Number 6 Number of COPY CLERK Visits 0 PT-OP-B Current Condition Start: 08/31/20 15:24 Freq: Status: Active Protocol: Document 09/05/20 14:04 [facility] (Rec: 09/05/20 16:02 [facility] [id number]) Current Condition History of Current Condition Onset Date 3 weeks ago Current Complaints R shoulder pain History of Current Condition Pt reports she was learning to ski and fell a lot and hurt her shoulder and tore L calf partially. Pt has been doing her own exercises and keeping active but has not run. She plans to try to run tomorrow. Shoulder is improving. When she wakes up int he AM, she limps some but hten it goes away. Treatment Goals Patient/Caregiver Goals wants to get exercises to rehab back to exercise PT-OP-C Subjective Start: 08/31/20 15:24 Freq: Status: Active Protocol: Document 10/04/20 07:27 [facility] (Rec: 10/04/20 09:03 [facility] [id number]) OP-PT Subjective Patient Comments Patient Comments Pt reprots not running d/t L calf feeling tight. Has been stretching but calf into HS feels tight. R shoulder is improving PT-OP-F Manual Assessment Start: 08/31/20 15:24 Freq: Status: Active Protocol: Document 09/29/20 07:29 [facility] (Rec: 09/29/20 08:27 [facility] [id number]) Manual Assessments Soft Tissue Assessment Soft Tissue Mobility Assessment tightness tightness of L calf and HS Joint Mobility Assessment Joint Mobility Assessment dec distal fibular mobility PT-OP-K Range of Motion Start: 08/31/20 15:24 Freq: Status: Active Protocol: Document 09/29/20 07:29 [facility] (Rec: 09/29/20 08:27 [facility] [id number]) Ankle and Foot Goniometric Range of Motion Ankle and Foot Right Dorsiflexion with Knee Flexed 10 Dorsiflexion with Knee Extended 2 Plantarflexion 60 Inversion 31 Eversion 24 Left Dorsiflexion with Knee Flexed 5 Dorsiflexion with Knee Extended 0 Plantarflexion 58 Inversion 21 Eversion 20 PT-OP-L Special Tests Start: 08/31/20 15:24 Freq: Status: Active Protocol: Document 09/05/20 14:04 [facility] (Rec: 09/05/20 16:02 [facility] [id number]) Special Tests Shoulder Special Tests Yergason's Biceps Test Results neg Sulcus Test Results neg Speed's Biceps Test Results positive Burnett Test Test Results negative Neer Impingement Test Results positive Arlph Zachariah Impingement Test Results neg Empty Can Test Results positive Drop Arm Rotator Cuff Test Results neg AC Joint Compression Test Results neg Neural Special Tests- Upper Body Median Nerve Tension Test Results neg Ulnar Nerve Tension Test Results neg Radial Nerve Tension Test Results neg PT-OP-M Strength Start: 08/31/20 15:24 Freq: Status: Active Protocol: Document 09/29/20 07:29 [facility] (Rec: 09/29/20 08:27 [facility] [id number]) Hip Strength Hip Manual Muscle Testing Right Flexion (L2) 5 Normal Extension (S1) 5 Normal Abduction 5 Normal Adduction 5 Normal External Rotation 5 Normal Internal Rotation 4 Good Left Flexion (L2) 4+ Good+ Extension (S1) 4 Good Abduction 5 Normal Adduction 5 Normal External Rotation 5 Normal Internal Rotation 4 Good Knee Strength Knee Manual Muscle Testing Right Flexion (S2) 5 Normal Extension (L3) 5 Normal Left Flexion (S2) 4 Good Extension (L3) 5 Normal Ankle/Foot Strength Ankle and Foot Manual Muscle Testing Right Dorsiflexion (L4) 5 Normal Plantarflexion (S1) 5 Normal Inversion 5 Normal Eversion (S1) 5 Normal Left Dorsiflexion (L4) 5 Normal Plantarflexion (S1) 5 Normal Inversion 4 Good Eversion (S1) 4+ Good+ Comments very tight by 3 calf raises PT-OP-Q Treatments Start: 01/20/21 15:24 Freq: Status: Active Protocol: Document 10/04/20 07:27 [facility] (Rec: 10/04/20 09:03 [facility] [id number]) Manual Therapy Treatment Soft Tissue Mobilization 2 Body Location HS Mobilization Type Rolling,Strumming,Sustained Pressure Body Position Supine Comments w/active HS stretch 1 Body Location calf Mobilization Type Rolling,Sustained Pressure Intensity/Depth Moderate Comments along med & lat borders w/APs Self-Care/Home Management Treatment Education Other Education edu for compression to calf & reivew of LE exercises verbally PT-OP-T Assessment and Plan Start: 08/31/20 15:24 Freq: Status: Active Protocol: Document 10/04/20 07:27 [facility] (Rec: 10/04/20 09:03 [facility] [id number]) Physical Therapy Assessment Goals Four Short Term Goal (STG) Pt will have full L ankle range without pain. STG Duration 10/27/20 [facility]pc Goal (LTG) Pt will return to running and skiing w/o inc pain or tightness in L calf. LTG Duration 11/27/20 Three Short Term Goal (STG) Pt will have equal ROM of R shoulder to L to allow all activities. STG Duration 10/06/20 Pharmacy Informaticist Goal (LTG) pt will be able to sleep on shoulder w/UE in any position she likes without inc pain. LTG Duration 11/03/20 Two Impairment Quick DASH 40.9 [facility] Goal (LTG) Pt will improve score to 0 so she can fully return to all activities without pain. LTG Duration 11/02/20 One Short Term Goal (STG) Pt will be indep w/HEP in order to strengthen & work on R shoulder ROM & stability. STG Duration 10/06/20 [facility] Goal (LTG) Pt will improve strength to 5/ 5 and EFT to 5/5 to show improved stability to do typical activities without pain. LTG Duration 11/03/20 Assessment Summary Assessment Pt had imrpoved HS mobility after mnaul and reviewed cont exercises. May have some limitation starting at hip. She had more soft tissue mobility w/massage Physical Therapy Plan Frequency and Duration Frequency of Treatment 1-2x/week Duration of Treatment 2 months Plan of Care Start Date 09/29/20 Plan of Care End Date 11/27/20 Next Visit Focus/Plan Next Note Type Treatment Note Next Visit Plan review prone exercises & foam roll & cont to release lats & work on calf mobility
--- NOTE | 2020-10-06 08:29 | PT.OTN ---
Current Diagnoses Pain in right shoulder (10/06/20) Other abnormalities of gait and mobility (10/06/20) Weakness (10/06/20) Strain of other muscle(s) and tendon(s) at lower leg level, left leg, subsequent encounter (10/06/20) Physical Therapy Treatment Note PT-OP-A Visit Information Start: 08/31/20 15:24 Freq: Status: Active Protocol: Document 10/06/20 07:28 [facility] (Rec: 10/06/20 08:28 [facility] [id number]) Out-Patient Physical Therapy Visit Information Visit Information Visit Type Treatment Note Visit Start Time 07:31 Visit Stop Time 08:19 Total Visit Minutes 48 Visit Number 7 Number of SENIOR SYSTEMS SOFTWARE ENGINEER Visits 0 PT-OP-B Current Condition Start: 08/31/20 15:24 Freq: Status: Active Protocol: Document 09/05/20 14:04 [facility] (Rec: 09/05/20 16:02 [facility] [id number]) Current Condition History of Current Condition Onset Date 3 weeks ago Current Complaints R shoulder pain History of Current Condition Pt reports she was learning to ski and fell a lot and hurt her shoulder and tore L calf partially. Pt has been doing her own exercises and keeping active but has not run. She plans to try to run tomorrow. Shoulder is improving. When she wakes up int he AM, she limps some but hten it goes away. Treatment Goals Patient/Caregiver Goals wants to get exercises to rehab back to exercise PT-OP-C Subjective Start: 08/31/20 15:24 Freq: Status: Active Protocol: Document 10/06/20 07:28 [facility] (Rec: 10/06/20 08:28 [facility] [id number]) OP-PT Subjective Patient Comments Patient Comments Pt reports she has been wearing compression socks. She felt like her calf was less tight yesterday. PT-OP-F Manual Assessment Start: 08/31/20 15:24 Freq: Status: Active Protocol: Document 09/29/20 07:29 [facility] (Rec: 09/29/20 08:27 [facility] [id number]) Manual Assessments Soft Tissue Assessment Soft Tissue Mobility Assessment tightness tightness of L calf and HS Joint Mobility Assessment Joint Mobility Assessment dec distal fibular mobility PT-OP-K Range of Motion Start: 08/31/20 15:24 Freq: Status: Active Protocol: Document 09/29/20 07:29 [facility] (Rec: 09/29/20 08:27 [facility] [id number]) Ankle and Foot Goniometric Range of Motion Ankle and Foot Right Dorsiflexion with Knee Flexed 10 Dorsiflexion with Knee Extended 2 Plantarflexion 60 Inversion 31 Eversion 24 Left Dorsiflexion with Knee Flexed 5 Dorsiflexion with Knee Extended 0 Plantarflexion 58 Inversion 21 Eversion 20 PT-OP-L Special Tests Start: 08/31/20 15:24 Freq: Status: Active Protocol: Document 09/05/20 14:04 [facility] (Rec: 09/05/20 16:02 [facility] [id number]) Special Tests Shoulder Special Tests Yergason's Biceps Test Results neg Sulcus Test Results neg Speed's Biceps Test Results positive [place] Test Test Results negative Neer Impingement Test Results positive Ralph Zachariah Impingement Test Results neg Empty Can Test Results positive Drop Arm Rotator Cuff Test Results neg AC Joint Compression Test Results neg Neural Special Tests- Upper Body Median Nerve Tension Test Results neg Ulnar Nerve Tension Test Results neg Radial Nerve Tension Test Results neg PT-OP-M Strength Start: 08/31/20 15:24 Freq: Status: Active Protocol: Document 09/29/20 07:29 [facility] (Rec: 09/29/20 08:27 [facility] [id number]) Hip Strength Hip Manual Muscle Testing Right Flexion (L2) 5 Normal Extension (S1) 5 Normal Abduction 5 Normal Adduction 5 Normal External Rotation 5 Normal Internal Rotation 4 Good Left Flexion (L2) 4+ Good+ Extension (S1) 4 Good Abduction 5 Normal Adduction 5 Normal External Rotation 5 Normal Internal Rotation 4 Good Knee Strength Knee Manual Muscle Testing Right Flexion (S2) 5 Normal Extension (L3) 5 Normal Left Flexion (S2) 4 Good Extension (L3) 5 Normal Ankle/Foot Strength Ankle and Foot Manual Muscle Testing Right Dorsiflexion (L4) 5 Normal Plantarflexion (S1) 5 Normal Inversion 5 Normal Eversion (S1) 5 Normal Left Dorsiflexion (L4) 5 Normal Plantarflexion (S1) 5 Normal Inversion 4 Good Eversion (S1) 4+ Good+ Comments very tight by 3 calf raises PT-OP-Q Treatments Start: 08/31/20 15:24 Freq: Status: Active Protocol: Document 10/06/20 07:28 [facility] (Rec: 10/06/20 08:28 [facility] [id number]) Therapeutic Exercises Prone Exercises ER Prone Exercise Name 90/90 over tball Side bilateral Reps/Minutes 10 scaption Prone Exercise Name over tball Side bilateral Reps/Minutes 15 1 Prone Exercise Name Habd over tball Side bilateral Equipment Used 2# Reps/Minutes 15 Sitting Exercises wrist stretches Sitting Exercise Name wrist flexors & extensors Side bilateral Reps/Minutes 30 sec ea 1st rib Sitting Exercise Name self w/towel Side right Reps/Minutes 10 Manual Therapy Treatment Soft Tissue Mobilization 5 Body Location lats & teres Mobilization Type Rolling Intensity/Depth Moderate Body Position Supine Comments w/flex 4 Body Location scalenes & UT Mobilization Type Rolling Intensity/Depth Moderate Body Position Supine 2 Body Location HS Mobilization Type Rolling,Strumming,Sustained Pressure Body Position Supine Comments w/active HS stretch 1 Body Location calf Mobilization Type Rolling,Sustained Pressure Intensity/Depth Moderate Comments along med & lat borders w/APs Joint Mobilizations 5 Joint GH Direction inf FM 4 Joint scap Direction inf 3 Joint AC Direction gapping FM 2 Joint RSC Direction gapping 1 Joint L hip on axis IR FM PT-OP-T Assessment and Plan Start: 08/31/20 15:24 Freq: Status: Active Protocol: Document 10/06/20 07:28 [facility] (Rec: 10/06/20 08:28 [facility] [id number]) Physical Therapy Assessment Goals Four Short Term Goal (STG) Pt will have full L ankle range without pain. STG Duration 10/27/20 Aerospace Mechanic Goal (LTG) Pt will return to running and skiing w/o inc pain or tightness in L calf. LTG Duration 11/27/20 Three Short Term Goal (STG) Pt will have equal ROM of R shoulder to L to allow all activities. STG Duration 10/06/20 Mcc Goal (LTG) pt will be able to sleep on shoulder w/UE in any position she likes without inc pain. LTG Duration 11/03/20 Two Impairment Quick DASH 40.9 Mcc Goal (LTG) Pt will improve score to 0 so she can fully return to all activities without pain. LTG Duration 11/02/20 One Short Term Goal (STG) Pt will be indep w/HEP in order to strengthen & work on R shoulder ROM & stability. STG Duration 2/25/21 Mcc Goal (LTG) Pt will improve strength to 5/ 5 and EFT to 5/5 to show improved stability to do typical activities without pain. LTG Duration 11/03/20 Assessment Summary Assessment Pt had improved abd to full PROM after manual treatment and imrpoved flex about 10 deg . She had dec swelling in L calf todayand imrpoved tissue mobility overall. Pt has elevation of R first rib which likely affects shoulder pain & arm pain Physical Therapy Plan Frequency and Duration Frequency of Treatment 1-2x/week Duration of Treatment 2 months Plan of Care Start Date 09/29/20 Plan of Care End Date 11/27/20 Next Visit Focus/Plan Next Note Type Treatment Note Next Visit Plan work on end range IR & flex for shoulder, work on HS mobility & calf
--- NOTE | 2020-10-11 17:51 | PT.OTN ---
Current Diagnoses Pain in right shoulder (10/11/20) Other abnormalities of gait and mobility (10/11/20) Weakness (10/11/20) Strain of other muscle(s) and tendon(s) at lower leg level, left leg, subsequent encounter (10/11/20) Physical Therapy Treatment Note PT-OP-A Visit Information Start: 08/31/20 15:24 Freq: Status: Active Protocol: Document 10/11/20 16:01 [facility] (Rec: 10/11/20 16:05 [facility] [id number]) Out-Patient Physical Therapy Visit Information Visit Information Visit Type Treatment Note Visit Start Time 15:18 Visit Stop Time 16:58 Total Visit Minutes 40 Visit Number 8 Number of DEALER ANALYST Visits 0 PT-OP-B Current Condition Start: 08/31/20 15:24 Freq: Status: Active Protocol: Document 09/05/20 14:04 [facility] (Rec: 09/05/20 16:02 [facility] [id number]) Current Condition History of Current Condition Onset Date 3 weeks ago Current Complaints R shoulder pain History of Current Condition Pt reports she was learning to ski and fell a lot and hurt her shoulder and tore L calf partially. Pt has been doing her own exercises and keeping active but has not run. She plans to try to run tomorrow. Shoulder is improving. When she wakes up int he AM, she limps some but hten it goes away. Treatment Goals Patient/Caregiver Goals wants to get exercises to rehab back to exercise PT-OP-C Subjective Start: 08/31/20 15:24 Freq: Status: Active Protocol: Document 10/11/20 16:01 [facility] (Rec: 10/11/20 16:05 [facility] [id number]) OP-PT Subjective Patient Comments Patient Comments Pt PT-OP-F Manual Assessment Start: 08/31/20 15:24 Freq: Status: Active Protocol: Document 09/29/20 07:29 [facility] (Rec: 09/29/20 08:27 [facility] [id number]) Manual Assessments Soft Tissue Assessment Soft Tissue Mobility Assessment tightness tightness of L calf and HS Joint Mobility Assessment Joint Mobility Assessment dec distal fibular mobility PT-OP-K Range of Motion Start: 08/31/20 15:24 Freq: Status: Active Protocol: Document 09/29/20 07:29 [facility] (Rec: 09/29/20 08:27 [facility] [id number]) Ankle and Foot Goniometric Range of Motion Ankle and Foot Right Dorsiflexion with Knee Flexed 10 Dorsiflexion with Knee Extended 2 Plantarflexion 60 Inversion 31 Eversion 24 Left Dorsiflexion with Knee Flexed 5 Dorsiflexion with Knee Extended 0 Plantarflexion 58 Inversion 21 Eversion 20 PT-OP-L Special Tests Start: 08/31/20 15:24 Freq: Status: Active Protocol: Document 09/05/20 14:04 [facility] (Rec: 09/05/20 16:02 [facility] [id number]) Special Tests Shoulder Special Tests Yergason's Biceps Test Results neg Sulcus Test Results neg Speed's Biceps Test Results positive [place] Test Test Results negative Neer Impingement Test Results positive Ralph Zachariah Impingement Test Results neg Empty Can Test Results positive Drop Arm Rotator Cuff Test Results neg AC Joint Compression Test Results neg Neural Special Tests- Upper Body Median Nerve Tension Test Results neg Ulnar Nerve Tension Test Results neg Radial Nerve Tension Test Results neg PT-OP-M Strength Start: 08/31/20 15:24 Freq: Status: Active Protocol: Document 09/29/20 07:29 [facility] (Rec: 09/29/20 08:27 [facility] [id number]) Hip Strength Hip Manual Muscle Testing Right Flexion (L2) 5 Normal Extension (S1) 5 Normal Abduction 5 Normal Adduction 5 Normal External Rotation 5 Normal Internal Rotation 4 Good Left Flexion (L2) 4+ Good+ Extension (S1) 4 Good Abduction 5 Normal Adduction 5 Normal External Rotation 5 Normal Internal Rotation 4 Good Knee Strength Knee Manual Muscle Testing Right Flexion (S2) 5 Normal Extension (L3) 5 Normal Left Flexion (S2) 4 Good Extension (L3) 5 Normal Ankle/Foot Strength Ankle and Foot Manual Muscle Testing Right Dorsiflexion (L4) 5 Normal Plantarflexion (S1) 5 Normal Inversion 5 Normal Eversion (S1) 5 Normal Left Dorsiflexion (L4) 5 Normal Plantarflexion (S1) 5 Normal Inversion 4 Good Eversion (S1) 4+ Good+ Comments very tight by 3 calf raises PT-OP-Q Treatments Start: 08/31/20 15:24 Freq: Status: Active Protocol: Document 10/11/20 16:01 [facility] (Rec: 10/11/20 16:05 [facility] [id number]) Therapeutic Exercises Supine Exercises 2 Supine Exercise Name SLR hold in HS stretch w/focus on knee ext Side right Prone Exercises scaption Prone Exercise Name over tball Side bilateral Reps/Minutes 15 Comments attempted wt but unable d/t improper movement of scap 1 Prone Exercise Name TKE Side left Reps/Minutes 5 sec x10 Standing Exercises 4 Standing Exercise Name TKE Side left Equipment Used L3 Reps/Minutes 15 Manual Therapy Treatment Soft Tissue Mobilization 2 Body Location HS Mobilization Type Rolling,Strumming,Sustained Pressure Body Position Prone Comments TKE 1 Body Location calf Mobilization Type Rolling,Sustained Pressure Intensity/Depth Moderate Comments prone w/TKE Joint Mobilizations 3 Joint PF Direction sup FM 2 Joint L proximal tib fib Direction AP FM 1 Joint L hip on axis ER FM Manual Techniques [address] C/r Body Position Supine PT-OP-T Assessment and Plan Start: 08/31/20 15:24 Freq: Status: Active Protocol: Document 10/11/20 16:01 [facility] (Rec: 10/11/20 16:05 [facility] [id number]) Physical Therapy Assessment Goals Four Short Term Goal (STG) Pt will have full L ankle range without pain. STG Duration 10/27/20 Intermediate Goal (LTG) Pt will return to running and skiing w/o inc pain or tightness in L calf. LTG Duration 11/27/20 Three Short Term Goal (STG) Pt will have equal ROM of R shoulder to L to allow all activities. STG Duration 10/06/20 Intermediate Goal (LTG) pt will be able to sleep on shoulder w/UE in any position she likes without inc pain. LTG Duration 11/03/20 Two Impairment Quick DASH 40.9 E Commerce Merchant Goal (LTG) Pt will improve score to 0 so she can fully return to all activities without pain. LTG Duration 11/02/20 One Short Term Goal (STG) Pt will be indep w/HEP in order to strengthen & work on R shoulder ROM & stability. STG Duration 10/06/20 Intermediate Goal (LTG) Pt will improve strength to 5/ 5 and EFT to 5/5 to show improved stability to do typical activities without pain. LTG Duration 11/03/20 Assessment Summary Assessment Pt was limited in her knee ext on L side which was notable during prone TKE exercise. This was improved with manual treatment and may be related ot calf strain. She was unable to do shoulder flex standing w/wt without excessive scalene & UT activiation so returned ot prone without wt as wt inc scap elevation pattern. Improved HS mobility after manual treatment. Physical Therapy Plan Frequency and Duration Frequency of Treatment 1-2x/week Duration of Treatment 2 months Plan of Care Start Date 09/29/20 Plan of Care End Date 11/27/20 Next Visit Focus/Plan Next Note Type Treatment Note Next Visit Plan work on end range IR & flex for shoulder, work on HS mobility & calf
--- NOTE | 2020-10-17 09:39 | PT.OTN ---
Current Diagnoses Pain in right shoulder (10/17/20) Other abnormalities of gait and mobility (10/17/20) Weakness (10/17/20) Strain of other muscle(s) and tendon(s) at lower leg level, left leg, subsequent encounter (10/17/20) Physical Therapy Treatment Note PT-OP-A Visit Information Start: 08/31/20 15:24 Freq: Status: Active Protocol: Document 10/17/20 09:19 [facility] (Rec: 10/17/20 09:39 [facility] [id number]) Out-Patient Physical Therapy Visit Information Visit Information Visit Type Treatment Note Visit Start Time 07:31 Visit Stop Time 08:15 Total Visit Minutes 44 Visit Number 9 Number of MOLD CONSTRUCTION SUPERVISOR Visits 0 PT-OP-B Current Condition Start: 08/31/20 15:24 Freq: Status: Active Protocol: Document 09/05/20 14:04 [facility] (Rec: 09/05/20 16:02 [facility] [id number]) Current Condition History of Current Condition Onset Date 3 weeks ago Current Complaints R shoulder pain History of Current Condition Pt reports she was learning to ski and fell a lot and hurt her shoulder and tore L calf partially. Pt has been doing her own exercises and keeping active but has not run. She plans to try to run tomorrow. Shoulder is improving. When she wakes up int he AM, she limps some but hten it goes away. Treatment Goals Patient/Caregiver Goals wants to get exercises to rehab back to exercise PT-OP-C Subjective Start: 08/31/20 15:24 Freq: Status: Active Protocol: Document 10/17/20 09:19 [facility] (Rec: 10/17/20 09:39 [facility] [id number]) OP-PT Subjective Patient Comments Patient Comments Pt reports shoulder setting has been very helpful and shoulder is 85-90% back to normal. Calf is still tight and is intermittently tighter than other times. She has been wearing compression socks. Did 2 mile walk/run 2x and it went okay. going to do a 2 mile one again today. PT-OP-F Manual Assessment Start: 08/31/20 15:24 Freq: Status: Active Protocol: Document 09/29/20 07:29 [facility] (Rec: 09/29/20 08:27 [facility] [id number]) Manual Assessments Soft Tissue Assessment Soft Tissue Mobility Assessment tightness tightness of L calf and HS Joint Mobility Assessment Joint Mobility Assessment dec distal fibular mobility PT-OP-K Range of Motion Start: 08/31/20 15:24 Freq: Status: Active Protocol: Document 09/29/20 07:29 [facility] (Rec: 09/29/20 08:27 [facility] [id number]) Ankle and Foot Goniometric Range of Motion Ankle and Foot Right Dorsiflexion with Knee Flexed 10 Dorsiflexion with Knee Extended 2 Plantarflexion 60 Inversion 31 Eversion 24 Left Dorsiflexion with Knee Flexed 5 Dorsiflexion with Knee Extended 0 Plantarflexion 58 Inversion 21 Eversion 20 PT-OP-L Special Tests Start: 08/31/20 15:24 Freq: Status: Active Protocol: Document 09/05/20 14:04 [facility] (Rec: 09/05/20 16:02 [facility] [id number]) Special Tests Shoulder Special Tests Yergason's Biceps Test Results neg Sulcus Test Results neg Speed's Biceps Test Results positive [place] Test Test Results negative Neer Impingement Test Results positive Ralph Zachariah Impingement Test Results neg Empty Can Test Results positive Drop Arm Rotator Cuff Test Results neg AC Joint Compression Test Results neg Neural Special Tests- Upper Body Median Nerve Tension Test Results neg Ulnar Nerve Tension Test Results neg Radial Nerve Tension Test Results neg PT-OP-M Strength Start: 08/31/20 15:24 Freq: Status: Active Protocol: Document 09/29/20 07:29 [facility] (Rec: 09/29/20 08:27 [facility] [id number]) Hip Strength Hip Manual Muscle Testing Right Flexion (L2) 5 Normal Extension (S1) 5 Normal Abduction 5 Normal Adduction 5 Normal External Rotation 5 Normal Internal Rotation 4 Good Left Flexion (L2) 4+ Good+ Extension (S1) 4 Good Abduction 5 Normal Adduction 5 Normal External Rotation 5 Normal Internal Rotation 4 Good Knee Strength Knee Manual Muscle Testing Right Flexion (S2) 5 Normal Extension (L3) 5 Normal Left Flexion (S2) 4 Good Extension (L3) 5 Normal Ankle/Foot Strength Ankle and Foot Manual Muscle Testing Right Dorsiflexion (L4) 5 Normal Plantarflexion (S1) 5 Normal Inversion 5 Normal Eversion (S1) 5 Normal Left Dorsiflexion (L4) 5 Normal Plantarflexion (S1) 5 Normal Inversion 4 Good Eversion (S1) 4+ Good+ Comments very tight by 3 calf raises PT-OP-Q Treatments Start: 08/31/20 15:24 Freq: Status: Active Protocol: Document 10/17/20 09:19 [facility] (Rec: 10/17/20 09:39 [facility] [id number]) Therapeutic Exercises Prone Exercises ER Prone Exercise Name 90/90 over tball Side bilateral Reps/Minutes 15 scaption Prone Exercise Name over tball Side bilateral Reps/Minutes 15 1 Prone Exercise Name Habd over ball Side bilateral Equipment Used 2#, 1# Reps/Minutes 2x10 Standing Exercises 2 Standing Exercise Name pivot prone & modified pivot prone Side bilateral Comments mult reps 1 Standing Exercise Name soleus stretch at wall Side left Reps/Minutes 30 sec x3 Manual Therapy Treatment Soft Tissue Mobilization 1 Body Location circumfrential MFR calf L, gastroc, soleus, plantaris Mobilization Type Rolling,Sustained Pressure Intensity/Depth Moderate Comments prone w/TKE & APS Self-Care/Home Management Treatment Education Other Education edu on cont gradual progression w/running, edu re: shoulder anatomy in relation to impingement & edu on calf mm anatomy w/book PT-OP-T Assessment and Plan Start: 08/31/20 15:24 Freq: Status: Active Protocol: Document 10/17/20 09:19 [facility] (Rec: 10/17/20 09:39 [facility] [id number]) Physical Therapy Assessment Goals Four Short Term Goal (STG) Pt will have full L ankle range without pain. STG Duration 10/27/20 Penitentiary Goal (LTG) Pt will return to running and skiing w/o inc pain or tightness in L calf. LTG Duration 11/27/20 Three Short Term Goal (STG) Pt will have equal ROM of R shoulder to L to allow all activities. STG Duration 10/06/20 Keyboard Operator Goal (LTG) pt will be able to sleep on shoulder w/UE in any position she likes without inc pain. LTG Duration 11/03/20 Two Impairment Quick DASH 40.9 Keyboard Operator Goal (LTG) Pt will improve score to 0 so she can fully return to all activities without pain. LTG Duration 11/02/20 One Short Term Goal (STG) Pt will be indep w/HEP in order to strengthen & work on R shoulder ROM & stability. STG Duration 10/06/20 Keyboard Operator Goal (LTG) Pt will improve strength to 5/ 5 and EFT to 5/5 to show improved stability to do typical activities without pain. LTG Duration 11/03/20 Assessment Summary Assessment Pt did well with improving mobility of shoulder and improved scap setting and movement of scap during exercises. She is improving with calf flexiblity and soft tissue mobility improves w/STM Physical Therapy Plan Frequency and Duration Frequency of Treatment 1-2x/week Duration of Treatment 2 months Plan of Care Start Date 09/29/20 Plan of Care End Date 11/27/20 Next Visit Focus/Plan Next Note Type Treatment Note Next Visit Plan work on end range IR & flex for shoulder, work on HS mobility & calf
--- NOTE | 2020-10-24 15:40 | PT.OTN ---
Current Diagnoses Pain in right shoulder (10/24/20) Other abnormalities of gait and mobility (10/24/20) Weakness (10/24/20) Strain of other muscle(s) and tendon(s) at lower leg level, left leg, subsequent encounter (10/24/20) Physical Therapy Treatment Note PT-OP-A Visit Information Start: 08/31/20 15:24 Freq: Status: Active Protocol: Document 10/24/20 15:34 [facility] (Rec: 10/24/20 15:40 [facility] [id number]) Out-Patient Physical Therapy Visit Information Visit Information Visit Type Treatment Note Visit Start Time 07:31 Visit Stop Time 08:15 Total Visit Minutes 44 Visit Number 10 Number of RN HOSPICE Visits 0 PT-OP-B Current Condition Start: 08/31/20 15:24 Freq: Status: Active Protocol: Document 09/05/20 14:04 [facility] (Rec: 09/05/20 16:02 [facility] [id number]) Current Condition History of Current Condition Onset Date 3 weeks ago Current Complaints R shoulder pain History of Current Condition Pt reports she was learning to ski and fell a lot and hurt her shoulder and tore L calf partially. Pt has been doing her own exercises and keeping active but has not run. She plans to try to run tomorrow. Shoulder is improving. When she wakes up int he AM, she limps some but hten it goes away. Treatment Goals Patient/Caregiver Goals wants to get exercises to rehab back to exercise PT-OP-C Subjective Start: 08/31/20 15:24 Freq: Status: Active Protocol: Document 10/24/20 15:34 [facility] (Rec: 10/24/20 15:40 [facility] [id number]) OP-PT Subjective Patient Comments Patient Comments Pt reports she ran 3 miles a few times last week. Calf still feels tight but no tighter. PT-OP-F Manual Assessment Start: 08/31/20 15:24 Freq: Status: Active Protocol: Document 09/29/20 07:29 [facility] (Rec: 09/29/20 08:27 [facility] [id number]) Manual Assessments Soft Tissue Assessment Soft Tissue Mobility Assessment tightness tightness of L calf and HS Joint Mobility Assessment Joint Mobility Assessment dec distal fibular mobility PT-OP-K Range of Motion Start: 08/31/20 15:24 Freq: Status: Active Protocol: Document 09/29/20 07:29 [facility] (Rec: 09/29/20 08:27 [facility] [id number]) Ankle and Foot Goniometric Range of Motion Ankle and Foot Right Dorsiflexion with Knee Flexed 10 Dorsiflexion with Knee Extended 2 Plantarflexion 60 Inversion 31 Eversion 24 Left Dorsiflexion with Knee Flexed 5 Dorsiflexion with Knee Extended 0 Plantarflexion 58 Inversion 21 Eversion 20 PT-OP-L Special Tests Start: 08/31/20 15:24 Freq: Status: Active Protocol: Document 09/05/20 14:04 [facility] (Rec: 09/05/20 16:02 [facility] [id number]) Special Tests Shoulder Special Tests Yergason's Biceps Test Results neg Sulcus Test Results neg Speed's Biceps Test Results positive [place] Test Test Results negative Neer Impingement Test Results positive Ralph Zachariah Impingement Test Results neg Empty Can Test Results positive Drop Arm Rotator Cuff Test Results neg AC Joint Compression Test Results neg Neural Special Tests- Upper Body Median Nerve Tension Test Results neg Ulnar Nerve Tension Test Results neg Radial Nerve Tension Test Results neg PT-OP-M Strength Start: 08/31/20 15:24 Freq: Status: Active Protocol: Document 09/29/20 07:29 [facility] (Rec: 09/29/20 08:27 [facility] [id number]) Hip Strength Hip Manual Muscle Testing Right Flexion (L2) 5 Normal Extension (S1) 5 Normal Abduction 5 Normal Adduction 5 Normal External Rotation 5 Normal Internal Rotation 4 Good Left Flexion (L2) 4+ Good+ Extension (S1) 4 Good Abduction 5 Normal Adduction 5 Normal External Rotation 5 Normal Internal Rotation 4 Good Knee Strength Knee Manual Muscle Testing Right Flexion (S2) 5 Normal Extension (L3) 5 Normal Left Flexion (S2) 4 Good Extension (L3) 5 Normal Ankle/Foot Strength Ankle and Foot Manual Muscle Testing Right Dorsiflexion (L4) 5 Normal Plantarflexion (S1) 5 Normal Inversion 5 Normal Eversion (S1) 5 Normal Left Dorsiflexion (L4) 5 Normal Plantarflexion (S1) 5 Normal Inversion 4 Good Eversion (S1) 4+ Good+ Comments very tight by 3 calf raises PT-OP-Q Treatments Start: 08/31/20 15:24 Freq: Status: Active Protocol: Document 10/24/20 15:34 [facility] (Rec: 10/24/20 15:40 [facility] [id number]) Manual Therapy Treatment Soft Tissue Mobilization 2 Body Location HS Mobilization Type Rolling,Strumming,Sustained Pressure Comments w/APs 1 Body Location circumfrential MFR calf L, gastroc, soleus, plantaris Mobilization Type Rolling,Sustained Pressure Intensity/Depth Moderate Comments supine w/APs Self-Care/Home Management Treatment Education Other Education edu to take a rest day that actually rests calf not hiking or stair stepper (instead flat very short walks, cycling , elliptical), edu to assess need for rest days more frequently and able to cont to progress running as long as she does not notice inc tightness or pain, review of self release w/ball & circumfrential MFR in 08/13 kneel w/knee fwd PT-OP-T Assessment and Plan Start: 08/31/20 15:24 Freq: Status: Active Protocol: Document 10/24/20 15:34 [facility] (Rec: 10/24/20 15:40 [facility] [id number]) Physical Therapy Assessment Goals Four Short Term Goal (STG) Pt will have full L ankle range without pain. STG Duration 10/27/20 Piping Designer Goal (LTG) Pt will return to running and skiing w/o inc pain or tightness in L calf. LTG Duration 11/27/20 Three Short Term Goal (STG) Pt will have equal ROM of R shoulder to L to allow all activities. STG Duration 10/06/20 Fpc Goal (LTG) pt will be able to sleep on shoulder w/UE in any position she likes without inc pain. LTG Duration 11/03/20 Two Impairment Quick DASH 40.9 Piping Designer Goal (LTG) Pt will improve score to 0 so she can fully return to all activities without pain. LTG Duration 11/02/20 One Short Term Goal (STG) Pt will be indep w/HEP in order to strengthen & work on R shoulder ROM & stability. STG Duration 10/06/20 Piping Designer Goal (LTG) Pt will improve strength to 5/ 5 and EFT to 5/5 to show improved stability to do typical activities without pain. LTG Duration 11/03/20 Assessment Summary Assessment Pt is making improvements w/ overall calf flexiblity but does have obvious mm tension visually and w/palpation until after STM. Improving HS flexiblity to about 80 deg R and L about 70 deg. Physical Therapy Plan Frequency and Duration Frequency of Treatment 1-2x/week Duration of Treatment 2 months Plan of Care Start Date 09/29/20 Plan of Care End Date 11/27/20 Next Visit Focus/Plan Next Note Type Treatment Note Next Visit Plan scap staiblity training/jt mobs to shoulder as needed, cont to worko n calf/HS mobility & stability, try some balance
--- NOTE | 2020-10-31 11:42 | PT.OTN ---
Current Diagnoses Pain in right shoulder (10/31/20) Other abnormalities of gait and mobility (10/31/20) Weakness (10/31/20) Strain of other muscle(s) and tendon(s) at lower leg level, left leg, subsequent encounter (10/31/20) Physical Therapy Treatment Note PT-OP-A Visit Information Start: 08/31/20 15:24 Freq: Status: Active Protocol: Document 10/31/20 11:36 [facility] (Rec: 10/31/20 11:41 [facility] [id number]) Out-Patient Physical Therapy Visit Information Visit Information Visit Type Treatment Note Visit Start Time 08:17 Visit Stop Time 09:00 Total Visit Minutes 43 Visit Number 11 Number of PLASTICS PRODUCTION MACHINE OPERATOR Visits 0 PT-OP-B Current Condition Start: 08/31/20 15:24 Freq: Status: Active Protocol: Document 09/05/20 14:04 [facility] (Rec: 09/05/20 16:02 [facility] [id number]) Current Condition History of Current Condition Onset Date 3 weeks ago Current Complaints R shoulder pain History of Current Condition Pt reports she was learning to ski and fell a lot and hurt her shoulder and tore L calf partially. Pt has been doing her own exercises and keeping active but has not run. She plans to try to run tomorrow. Shoulder is improving. When she wakes up int he AM, she limps some but hten it goes away. Treatment Goals Patient/Caregiver Goals wants to get exercises to rehab back to exercise PT-OP-C Subjective Start: 08/31/20 15:24 Freq: Status: Active Protocol: Document 10/31/20 11:36 [facility] (Rec: 10/31/20 11:41 [facility] [id number]) OP-PT Subjective Patient Comments Patient Comments Pt reports just finishing 3 mile run. Has been able to do some run/walks PT-OP-F Manual Assessment Start: 08/31/20 15:24 Freq: Status: Active Protocol: Document 09/29/20 07:29 [facility] (Rec: 09/29/20 08:27 [facility] [id number]) Manual Assessments Soft Tissue Assessment Soft Tissue Mobility Assessment tightness tightness of L calf and HS Joint Mobility Assessment Joint Mobility Assessment dec distal fibular mobility PT-OP-K Range of Motion Start: 08/31/20 15:24 Freq: Status: Active Protocol: Document 09/29/20 07:29 [facility] (Rec: 09/29/20 08:27 [facility] [id number]) Ankle and Foot Goniometric Range of Motion Ankle and Foot Right Dorsiflexion with Knee Flexed 10 Dorsiflexion with Knee Extended 2 Plantarflexion 60 Inversion 31 Eversion 24 Left Dorsiflexion with Knee Flexed 5 Dorsiflexion with Knee Extended 0 Plantarflexion 58 Inversion 21 Eversion 20 PT-OP-L Special Tests Start: 08/31/20 15:24 Freq: Status: Active Protocol: Document 09/05/20 14:04 [facility] (Rec: 09/05/20 16:02 [facility] [id number]) Special Tests Shoulder Special Tests Yergason's Biceps Test Results neg Sulcus Test Results neg Speed's Biceps Test Results positive [place] Test Test Results negative Neer Impingement Test Results positive Ralph Zachariah Impingement Test Results neg Empty Can Test Results positive Drop Arm Rotator Cuff Test Results neg AC Joint Compression Test Results neg Neural Special Tests- Upper Body Median Nerve Tension Test Results neg Ulnar Nerve Tension Test Results neg Radial Nerve Tension Test Results neg PT-OP-M Strength Start: 08/31/20 15:24 Freq: Status: Active Protocol: Document 09/29/20 07:29 [facility] (Rec: 09/29/20 08:27 [facility] [id number]) Hip Strength Hip Manual Muscle Testing Right Flexion (L2) 5 Normal Extension (S1) 5 Normal Abduction 5 Normal Adduction 5 Normal External Rotation 5 Normal Internal Rotation 4 Good Left Flexion (L2) 4+ Good+ Extension (S1) 4 Good Abduction 5 Normal Adduction 5 Normal External Rotation 5 Normal Internal Rotation 4 Good Knee Strength Knee Manual Muscle Testing Right Flexion (S2) 5 Normal Extension (L3) 5 Normal Left Flexion (S2) 4 Good Extension (L3) 5 Normal Ankle/Foot Strength Ankle and Foot Manual Muscle Testing Right Dorsiflexion (L4) 5 Normal Plantarflexion (S1) 5 Normal Inversion 5 Normal Eversion (S1) 5 Normal Left Dorsiflexion (L4) 5 Normal Plantarflexion (S1) 5 Normal Inversion 4 Good Eversion (S1) 4+ Good+ Comments very tight by 3 calf raises PT-OP-Q Treatments Start: 08/31/20 15:24 Freq: Status: Active Protocol: Document 10/31/20 11:36 [facility] (Rec: 10/31/20 11:41 [facility] [id number]) Therapeutic Exercises Sitting Exercises wrist strength Sitting Exercise Name eccentric wrist ext Side right Equipment Used 1# Reps/Minutes 2x12 wrist stretches Sitting Exercise Name wrist ext stretch Side right Reps/Minutes 30 sec x2 Manual Therapy Treatment Soft Tissue Mobilization 5 Body Location along extensor tendons Mobilization Type Rolling Intensity/Depth Moderate 1 Body Location circumfrential MFR calf L, gastroc, soleus, plantaris, HS Mobilization Type Rolling,Sustained Pressure Intensity/Depth Moderate Comments supine w/APs & knee ext PT-OP-T Assessment and Plan Start: 08/31/20 15:24 Freq: Status: Active Protocol: Document 10/31/20 11:36 [facility] (Rec: 10/31/20 11:41 [facility] [id number]) Physical Therapy Assessment Goals Four Short Term Goal (STG) Pt will have full L ankle range without pain. STG Duration 10/27/20 Cloth Printing Back Tender Goal (LTG) Pt will return to running and skiing w/o inc pain or tightness in L calf. LTG Duration 11/27/20 Three Short Term Goal (STG) Pt will have equal ROM of R shoulder to L to allow all activities. STG Duration 10/06/20 Mcc Goal (LTG) pt will be able to sleep on shoulder w/UE in any position she likes without inc pain. LTG Duration 11/03/20 Two Impairment Quick DASH 40.9 Mcc Goal (LTG) Pt will improve score to 0 so she can fully return to all activities without pain. LTG Duration 11/02/20 One Short Term Goal (STG) Pt will be indep w/HEP in order to strengthen & work on R shoulder ROM & stability. STG Duration 10/06/20 Mcc Goal (LTG) Pt will improve strength to 5/ 5 and EFT to 5/5 to show improved stability to do typical activities without pain. LTG Duration 11/03/20 Assessment Summary Assessment Improved HS and calf mobility after manual tretment. Pt educated on doing ice massage to elbow as needed. reported feeling good w/exercises Physical Therapy Plan Frequency and Duration Frequency of Treatment 1-2x/week Duration of Treatment 2 months Plan of Care Start Date 09/29/20 Plan of Care End Date 11/27/20 Next Visit Focus/Plan Next Note Type Treatment Note Next Visit Plan scap staiblity training/jt mobs to shoulder as needed, cont to worko n calf/HS mobility & stability, try some balance
--- NOTE | 2020-11-07 09:04 | PT.OTN ---
Current Diagnoses Pain in right shoulder (11/07/20) Other abnormalities of gait and mobility (11/07/20) Weakness (11/07/20) Strain of other muscle(s) and tendon(s) at lower leg level, left leg, subsequent encounter (11/07/20) Physical Therapy Treatment Note PT-OP-A Visit Information Start: 08/31/20 15:24 Freq: Status: Active Protocol: Document 11/07/20 09:01 [facility] (Rec: 11/07/20 09:04 [facility] [id number]) Out-Patient Physical Therapy Visit Information Visit Information Visit Type Treatment Note Visit Start Time 08:18 Visit Stop Time 08:59 Total Visit Minutes 41 Visit Number 12 Number of TELEPHONE OPERATOR RECEPTIONIST Visits 0 PT-OP-B Current Condition Start: 08/31/20 15:24 Freq: Status: Active Protocol: Document 09/05/20 14:04 [facility] (Rec: 09/05/20 16:02 [facility] [id number]) Current Condition History of Current Condition Onset Date 3 weeks ago Current Complaints R shoulder pain History of Current Condition Pt reports she was learning to ski and fell a lot and hurt her shoulder and tore L calf partially. Pt has been doing her own exercises and keeping active but has not run. She plans to try to run tomorrow. Shoulder is improving. When she wakes up int he AM, she limps some but hten it goes away. Treatment Goals Patient/Caregiver Goals wants to get exercises to rehab back to exercise PT-OP-C Subjective Start: 08/31/20 15:24 Freq: Status: Active Protocol: Document 11/07/20 09:01 [facility] (Rec: 11/07/20 09:04 [facility] [id number]) OP-PT Subjective Patient Comments Patient Comments Pt rerports less calf tightness and less lower arm pain. She has been paddling and running PT-OP-F Manual Assessment Start: 08/31/20 15:24 Freq: Status: Active Protocol: Document 09/29/20 07:29 [facility] (Rec: 09/29/20 08:27 [facility] [id number]) Manual Assessments Soft Tissue Assessment Soft Tissue Mobility Assessment tightness tightness of L calf and HS Joint Mobility Assessment Joint Mobility Assessment dec distal fibular mobility PT-OP-K Range of Motion Start: 08/31/20 15:24 Freq: Status: Active Protocol: Document 09/29/20 07:29 [facility] (Rec: 09/29/20 08:27 [facility] [id number]) Ankle and Foot Goniometric Range of Motion Ankle and Foot Right Dorsiflexion with Knee Flexed 10 Dorsiflexion with Knee Extended 2 Plantarflexion 60 Inversion 31 Eversion 24 Left Dorsiflexion with Knee Flexed 5 Dorsiflexion with Knee Extended 0 Plantarflexion 58 Inversion 21 Eversion 20 PT-OP-L Special Tests Start: 08/31/20 15:24 Freq: Status: Active Protocol: Document 09/05/20 14:04 [facility] (Rec: 09/05/20 16:02 [facility] [id number]) Special Tests Shoulder Special Tests Yergason's Biceps Test Results neg Sulcus Test Results neg Speed's Biceps Test Results positive [place] Test Test Results negative Neer Impingement Test Results positive Ralph Zachariah Impingement Test Results neg Empty Can Test Results positive Drop Arm Rotator Cuff Test Results neg AC Joint Compression Test Results neg Neural Special Tests- Upper Body Median Nerve Tension Test Results neg Ulnar Nerve Tension Test Results neg Radial Nerve Tension Test Results neg PT-OP-M Strength Start: 08/31/20 15:24 Freq: Status: Active Protocol: Document 09/29/20 07:29 [facility] (Rec: 09/29/20 08:27 [facility] [id number]) Hip Strength Hip Manual Muscle Testing Right Flexion (L2) 5 Normal Extension (S1) 5 Normal Abduction 5 Normal Adduction 5 Normal External Rotation 5 Normal Internal Rotation 4 Good Left Flexion (L2) 4+ Good+ Extension (S1) 4 Good Abduction 5 Normal Adduction 5 Normal External Rotation 5 Normal Internal Rotation 4 Good Knee Strength Knee Manual Muscle Testing Right Flexion (S2) 5 Normal Extension (L3) 5 Normal Left Flexion (S2) 4 Good Extension (L3) 5 Normal Ankle/Foot Strength Ankle and Foot Manual Muscle Testing Right Dorsiflexion (L4) 5 Normal Plantarflexion (S1) 5 Normal Inversion 5 Normal Eversion (S1) 5 Normal Left Dorsiflexion (L4) 5 Normal Plantarflexion (S1) 5 Normal Inversion 4 Good Eversion (S1) 4+ Good+ Comments very tight by 3 calf raises PT-OP-Q Treatments Start: 08/31/20 15:24 Freq: Status: Active Protocol: Document 11/07/20 09:01 [facility] (Rec: 11/07/20 09:04 [facility] [id number]) Therapeutic Exercises Supine Exercises 2 Supine Exercise Name stretches: HS, calf, adductors , abd Side bilateral Comments active relase Sidelying Exercises 1 Sidelying Exercise Name roll & reach Side bilateral Reps/Minutes 5 Manual Therapy Treatment Soft Tissue Mobilization 1 Body Location circumfrential MFR calf L, gastroc, soleus, plantaris, HS Mobilization Type Rolling,Sustained Pressure Intensity/Depth Moderate Comments supine w/APs & knee ext Joint Mobilizations 5 Joint talus L Direction AP FM 4 Joint AC Direction gapping FM PT-OP-T Assessment and Plan Start: 08/31/20 15:24 Freq: Status: Active Protocol: Document 11/07/20 09:01 [facility] (Rec: 11/07/20 09:04 [facility] [id number]) Physical Therapy Assessment Goals Four Short Term Goal (STG) Pt will have full L ankle range without pain. STG Duration 10/27/20 Long-Term Goal (LTG) Pt will return to running and skiing w/o inc pain or tightness in L calf. LTG Duration 11/27/20 Three Short Term Goal (STG) Pt will have equal ROM of R shoulder to L to allow all activities. STG Duration 10/06/20 Long-Term Goal (LTG) pt will be able to sleep on shoulder w/UE in any position she likes without inc pain. LTG Duration 11/03/20 Two Impairment Quick DASH 40.9 Activity Aide Goal (LTG) Pt will improve score to 0 so she can fully return to all activities without pain. LTG Duration 11/02/20 One Short Term Goal (STG) Pt will be indep w/HEP in order to strengthen & work on R shoulder ROM & stability. STG Duration 10/06/20 Long-Term Goal (LTG) Pt will improve strength to 5/ 5 and EFT to 5/5 to show improved stability to do typical activities without pain. LTG Duration 11/03/20 Assessment Summary Assessment Pt is imrpvoing w/soft tissue tightenss with better mobility noted today. Improved HS mobility after reciprocal inibition exercises for stretching Pt encouraged to stretch after runs & workouts Physical Therapy Plan Frequency and Duration Frequency of Treatment 1-2x/week Duration of Treatment 2 months Plan of Care Start Date 09/29/20 Plan of Care End Date 11/27/20 Next Visit Focus/Plan Next Note Type Progress Note Next Visit Plan scap staiblity training/jt mobs to shoulder as needed, cont to worko n calf/HS mobility & stability, try some balance
--- NOTE | 2020-11-24 14:19 | PT.OTN ---
Current Diagnoses Pain in right shoulder (11/24/20) Other abnormalities of gait and mobility (11/24/20) Weakness (11/24/20) Strain of other muscle(s) and tendon(s) at lower leg level, left leg, subsequent encounter (11/24/20) Physical Therapy Treatment Note PT-OP-A Visit Information Start: 08/31/20 15:24 Freq: Status: Active Protocol: Document 11/24/20 09:02 [facility] (Rec: 11/24/20 09:50 [facility] [id number]) Out-Patient Physical Therapy Visit Information Visit Information Visit Type Progress Note Visit Start Time 09:03 Visit Stop Time 09:43 Total Visit Minutes 40 Visit Number 13 Number of BEHAVIORAL INSTRUCTOR Visits 0 PT-OP-B Current Condition Start: 08/31/20 15:24 Freq: Status: Active Protocol: Document 09/05/20 14:04 [facility] (Rec: 09/05/20 16:02 [facility] [id number]) Current Condition History of Current Condition Onset Date 3 weeks ago Current Complaints R shoulder pain History of Current Condition Pt reports she was learning to ski and fell a lot and hurt her shoulder and tore L calf partially. Pt has been doing her own exercises and keeping active but has not run. She plans to try to run tomorrow. Shoulder is improving. When she wakes up int he AM, she limps some but hten it goes away. Treatment Goals Patient/Caregiver Goals wants to get exercises to rehab back to exercise PT-OP-C Subjective Start: 08/31/20 15:24 Freq: Status: Active Protocol: Document 11/24/20 09:02 [facility] (Rec: 11/24/20 09:50 [facility] [id number]) OP-PT Subjective Patient Comments Patient Comments Pt reprots shoulder rarely bothers her. She can now sleep on it for little bits but it does get sore if its too long. it feels tight at end range. She has not done a lot of lifting though d/t vacation but did do 200 push ups in 1 day. She has been running and doing long walks without much issue on vacation with [place] shoes and ran in them yesterday w/no pain or tightnes in calf or achilles on L but wore her normal trail shoes today and noted some tightness. Patient Reported Progress Improving PT-OP-F Manual Assessment Start: 08/31/20 15:24 Freq: Status: Active Protocol: Document 09/29/20 07:29 [facility] (Rec: 09/29/20 08:27 [facility] [id number]) Manual Assessments Soft Tissue Assessment Soft Tissue Mobility Assessment tightness tightness of L calf and HS Joint Mobility Assessment Joint Mobility Assessment dec distal fibular mobility PT-OP-J Posture/Palpation/Skin Start: 08/31/20 15:24 Freq: Status: Active Protocol: Document 11/24/20 09:02 [facility] (Rec: 11/24/20 09:50 [facility] [id number]) Posture Evaluation [facility] Postural Classification System Elbow Flexion Test 3 PT-OP-K Range of Motion Start: 08/31/20 15:24 Freq: Status: Active Protocol: Document 11/24/20 09:02 [facility] (Rec: 11/24/20 09:50 [facility] [id number]) Ankle and Foot Goniometric Range of Motion Ankle and Foot Right Dorsiflexion with Knee Flexed 15 Dorsiflexion with Knee Extended 6 Left Dorsiflexion with Knee Flexed 12 Dorsiflexion with Knee Extended 5 PT-OP-L Special Tests Start: 08/31/20 15:24 Freq: Status: Active Protocol: Document 09/05/20 14:04 [facility] (Rec: 09/05/20 16:02 [facility] [id number]) Special Tests Shoulder Special Tests Yergason's Biceps Test Results neg Sulcus Test Results neg Speed's Biceps Test Results positive Mobile Test Test Results negative Neer Impingement Test Results positive Ralph Zachariah Impingement Test Results neg Empty Can Test Results positive Drop Arm Rotator Cuff Test Results neg AC Joint Compression Test Results neg Neural Special Tests- Upper Body Median Nerve Tension Test Results neg Ulnar Nerve Tension Test Results neg Radial Nerve Tension Test Results neg PT-OP-M Strength Start: 08/31/20 15:24 Freq: Status: Active Protocol: Document 11/24/20 09:02 [facility] (Rec: 11/24/20 09:50 [facility] [id number]) Shoulder Strength Shoulder Manual Muscle Testing Right Flexion 5 Normal Extension 5 Normal Abduction (C5) 5 Normal External Rotation 5 Normal Internal Rotation 5 Normal Horizontal Abduction 5 Normal Horizontal Adduction 5 Normal Left Flexion 5 Normal Extension 5 Normal Abduction (C5) 5 Normal External Rotation 5 Normal Internal Rotation 5 Normal Horizontal Abduction 5 Normal Horizontal Adduction 5 Normal Hip Strength Hip Manual Muscle Testing Right Flexion (L2) 5 Normal Extension (S1) 5 Normal Abduction 5 Normal Adduction 5 Normal External Rotation 5 Normal Internal Rotation 4+ Good+ Left Flexion (L2) 4+ Good+ Extension (S1) 5 Normal Abduction 5 Normal Adduction 5 Normal External Rotation 5 Normal Internal Rotation 4+ Good+ Knee Strength Knee Manual Muscle Testing Right Flexion (S2) 5 Normal Extension (L3) 5 Normal Left Flexion (S2) 5 Normal Extension (L3) 5 Normal Ankle/Foot Strength Ankle and Foot Manual Muscle Testing Right Dorsiflexion (L4) 5 Normal Plantarflexion (S1) 5 Normal Inversion 5 Normal Eversion (S1) 5 Normal Left Dorsiflexion (L4) 5 Normal Plantarflexion (S1) 5 Normal Inversion 5 Normal Eversion (S1) 5 Normal PT-OP-Q Treatments Start: 08/31/20 15:24 Freq: Status: Active Protocol: Document 11/24/20 09:02 [facility] (Rec: 11/24/20 09:50 [facility] [id number]) Cardio Equipment Treadmill Duration (Minutes) 6 Speed 2.5-6 Incline 0 Other cued to try slight turn in of L foot Therapeutic Exercises Standing Exercises 4 Standing Exercise Name short arch Side bilateral Comments max cueing Gait Training Gait Activity 3 Description gait at wall holds Comments 20sec x2 B Neuro Re-Education Treatment Balance Activities SLS Details B LE trials PT-OP-T Assessment and Plan Start: 08/31/20 15:24 Freq: Status: Active Protocol: Document 11/24/20 09:02 [facility] (Rec: 11/24/20 09:50 [facility] [id number]) Physical Therapy Assessment Goals Four Short Term Goal (STG) Pt will have full L ankle range without pain. STG Duration achieved Farmer Cash Grain Goal (LTG) Pt will return to running and skiing w/o inc pain or tightness in L calf. 11/24-tightness only after but not during LTG Duration 01/24/21 Three Short Term Goal (STG) Pt will have equal ROM of R shoulder to L to allow all activities. STG Duration equal range-slight tightness at end range 11/24 Prison Goal (LTG) pt will be able to sleep on shoulder w/UE in any position she likes without inc pain. 11/24-can sleep longer bouts w/ less issues LTG Duration 01/24/21 Two Impairment Quick DASH 40.9 Prison Goal (LTG) Pt will improve score to 0 so she can fully return to all activities without pain. 11/24-20.45 LTG Duration 01/24/21 One Short Term Goal (STG) Pt will be indep w/HEP in order to strengthen & work on R shoulder ROM & stability. STG Duration achieved Farmer Cash Grain Goal (LTG) Pt will improve strength to UE & LE 12/14 and EFT to 12/14 to show improved stability to do typical activities without pain. 11/24-achieved w/UE and most of LE, 3/5 EFT LTG Duration 01/24/21 Assessment Summary Assessment Pt has made good progress with therapy with ROM of shoulder and ankle and has imrpoved strength of both LE and UE with imrpoved overall postural stability. She has some residual tightnes sof calf and end range flex of shoulder at this time that does limit her some.S he did not have as much tightness with a different pair of shoes so discussed w/pt to wear those when running on roads and discussed possibly trying different shoe for trails also to avoid this. She does have some inc prnation of R side w/ slight ER of R foot which may contribute to cont tightness feeling in achilles after runs . Physical Therapy Plan Frequency and Duration Frequency of Treatment 1x/Week Duration of Treatment 2 months Plan of Care Start Date 11/24/20 Plan of Care End Date 01/24/21 Therapeutic Interventions Therapeutic Interventions Aquatic Therapy,Balance Training,Gait Training,Home Exercise Program,Joint Mobilizations,Manual Therapy, Neuromuscular Re-education, Patient/Caregiver Education, Self-Care/Home Management,Soft Tissue Mobilization,Taping, Therapeutic Activities, Therapeutic Exercises Modalities Cold Pack/Ice Massage,Electric Stimulation,Hot Packs, Infrared Therapy,Iontophoresis ,Ultrasound Next Visit Focus/Plan Next Note Type Treatment Note Next Visit Plan work on foot postion & stability & balance R side, work on end range flex ability of shoulder, discuss quick dash
--- NOTE | 2020-11-24 14:19 | PT.OPPOC ---
Physical, Occupational & Speech Therapy At [facility] Current Diagnoses Pain in right shoulder (11/24/20) Other abnormalities of gait and mobility (11/24/20) Weakness (11/24/20) Strain of other muscle(s) and tendon(s) at lower leg level, left leg, subsequent encounter (11/24/20) Visit Care Team Role Provider Type Aristeo Oliva MD Attending Provider Physician Primary Care Provider Referring Provider Specialty: [facility] Address: [address] [place] [address], [id number] Email: [email or web address] Plan Of Care PT-OP-T Assessment and Plan Start: 08/31/20 15:24 Freq: Status: Active Protocol: Document 11/24/20 09:02 [facility] (Rec: 11/24/20 09:50 [facility] [id number]) Physical Therapy Assessment Goals Four Short Term Goal (STG) Pt will have full L ankle range without pain. STG Duration achieved Skilled Nursing Goal (LTG) Pt will return to running and skiing w/o inc pain or tightness in L calf. 11/24-tightness only after but not during LTG Duration 01/24/21 Three Short Term Goal (STG) Pt will have equal ROM of R shoulder to L to allow all activities. STG Duration equal range-slight tightness at end range 11/24 Skilled Nursing Goal (LTG) pt will be able to sleep on shoulder w/UE in any position she likes without inc pain. 11/24-can sleep longer bouts w/ less issues LTG Duration 01/24/21 Two Impairment Quick DASH 40.9 Skilled Nursing Goal (LTG) Pt will improve score to 0 so she can fully return to all activities without pain. 11/24-20.45 LTG Duration 01/24/21 One Short Term Goal (STG) Pt will be indep w/HEP in order to strengthen & work on R shoulder ROM & stability. STG Duration achieved Engine Repairer Goal (LTG) Pt will improve strength to UE & LE 5/5 and EFT to 5/5 to show improved stability to do typical activities without pain. 11/24-achieved w/UE and most of LE, 3/5 EFT LTG Duration 01/24/21 Assessment Summary Assessment Pt has made good progress with therapy with ROM of shoulder and ankle and has imrpoved strength of both LE and UE with imrpoved overall postural stability. She has some residual tightnes sof calf and end range flex of shoulder at this time that does limit her some.S he did not have as much tightness with a different pair of shoes so discussed w/pt to wear those when running on roads and discussed possibly trying different shoe for trails also to avoid this. She does have some inc prnation of R side w/ slight ER of R foot which may contribute to cont tightness feeling in achilles after runs . Physical Therapy Plan Frequency and Duration Frequency of Treatment 1x/Week Duration of Treatment 2 months Plan of Care Start Date 11/24/20 Plan of Care End Date 01/24/21 Therapeutic Interventions Therapeutic Interventions Aquatic Therapy,Balance Training,Gait Training,Home Exercise Program,Joint Mobilizations,Manual Therapy, Neuromuscular Re-education, Patient/Caregiver Education, Self-Care/Home Management,Soft Tissue Mobilization,Taping, Therapeutic Activities, Therapeutic Exercises Modalities Cold Pack/Ice Massage,Electric Stimulation,Hot Packs, Infrared Therapy,Iontophoresis ,Ultrasound Next Visit Focus/Plan Next Note Type Treatment Note Next Visit Plan work on foot postion & stability & balance R side, work on end range flex ability of shoulder, discuss quick dash Plan of Care Dates Plan of Care Start Date 11/24/20 Plan of Care End Date 01/24/21 Electronically Signed by: Baylee Mccloud, PT 11/24/20 [id number] Please Sign and Return: I have reviewed this Plan of Care and certify that the skilled therapy services above are required to meet the patient?s needs. Physician Signature Date Printed Name and Credentials Clinical Instructor Signature Printed Name and Credentials
--- NOTE | 2020-12-06 09:48 | PT.OTN ---
Current Diagnoses Pain in right shoulder (12/06/20) Other abnormalities of gait and mobility (12/06/20) Weakness (12/06/20) Strain of other muscle(s) and tendon(s) at lower leg level, left leg, subsequent encounter (12/06/20) Physical Therapy Treatment Note PT-OP-A Visit Information Start: 08/31/20 15:24 Freq: Status: Active Protocol: Document 12/06/20 07:31 [facility] (Rec: 12/06/20 09:45 [facility] [id number]) Out-Patient Physical Therapy Visit Information Visit Information Visit Type Discharge Summary Visit Start Time 07:31 Visit Stop Time 08:13 Total Visit Minutes 42 Visit Number 14 Number of CORN HUSK BALER Visits 0 PT-OP-B Current Condition Start: 08/31/20 15:24 Freq: Status: Active Protocol: Document 09/05/20 14:04 [facility] (Rec: 09/05/20 16:02 [facility] [id number]) Current Condition History of Current Condition Onset Date 3 weeks ago Current Complaints R shoulder pain History of Current Condition Pt reports she was learning to ski and fell a lot and hurt her shoulder and tore L calf partially. Pt has been doing her own exercises and keeping active but has not run. She plans to try to run tomorrow. Shoulder is improving. When she wakes up int he AM, she limps some but hten it goes away. Treatment Goals Patient/Caregiver Goals wants to get exercises to rehab back to exercise PT-OP-C Subjective Start: 08/31/20 15:24 Freq: Status: Active Protocol: Document 12/06/20 07:31 [facility] (Rec: 12/06/20 09:45 [facility] [id number]) OP-PT Subjective Patient Comments Patient Comments Pt reprots shoulder doing well . 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 Able to scrub back w/brush. Notes got new shoes and ran 5 miles this AM and it went well. PT-OP-F Manual Assessment Start: 08/31/20 15:24 Freq: Status: Active Protocol: Document 09/29/20 07:29 [facility] (Rec: 09/29/20 08:27 [facility] [id number]) Manual Assessments Soft Tissue Assessment Soft Tissue Mobility Assessment tightness tightness of L calf and HS Joint Mobility Assessment Joint Mobility Assessment dec distal fibular mobility PT-OP-J Posture/Palpation/Skin Start: 08/31/20 15:24 Freq: Status: Active Protocol: Document 11/24/20 09:02 [facility] (Rec: 11/24/20 09:50 [facility] [id number]) Posture Evaluation [facility] Postural Classification System Elbow Flexion Test 3 PT-OP-K Range of Motion Start: 08/31/20 15:24 Freq: Status: Active Protocol: Document 11/24/20 09:02 [facility] (Rec: 11/24/20 09:50 [facility] [id number]) Ankle and Foot Goniometric Range of Motion Ankle and Foot Right Dorsiflexion with Knee Flexed 15 Dorsiflexion with Knee Extended 6 Left Dorsiflexion with Knee Flexed 12 Dorsiflexion with Knee Extended 5 PT-OP-L Special Tests Start: 08/31/20 15:24 Freq: Status: Active Protocol: Document 09/05/20 14:04 [facility] (Rec: 09/05/20 16:02 [facility] [id number]) Special Tests Shoulder Special Tests Yergason's Biceps Test Results neg Sulcus Test Results neg Speed's Biceps Test Results positive Gratiot Test Test Results negative Neer Impingement Test Results positive Ralph Zachariah Impingement Test Results neg Empty Can Test Results positive Drop Arm Rotator Cuff Test Results neg AC Joint Compression Test Results neg Neural Special Tests- Upper Body Median Nerve Tension Test Results neg Ulnar Nerve Tension Test Results neg Radial Nerve Tension Test Results neg PT-OP-M Strength Start: 08/31/20 15:24 Freq: Status: Active Protocol: Document 11/24/20 09:02 [facility] (Rec: 11/24/20 09:50 [facility] [id number]) Shoulder Strength Shoulder Manual Muscle Testing Right Flexion 5 Normal Extension 5 Normal Abduction (C5) 5 Normal External Rotation 5 Normal Internal Rotation 5 Normal Horizontal Abduction 5 Normal Horizontal Adduction 5 Normal Left Flexion 5 Normal Extension 5 Normal Abduction (C5) 5 Normal External Rotation 5 Normal Internal Rotation 5 Normal Horizontal Abduction 5 Normal Horizontal Adduction 5 Normal Hip Strength Hip Manual Muscle Testing Right Flexion (L2) 5 Normal Extension (S1) 5 Normal Abduction 5 Normal Adduction 5 Normal External Rotation 5 Normal Internal Rotation 4+ Good+ Left Flexion (L2) 4+ Good+ Extension (S1) 5 Normal Abduction 5 Normal Adduction 5 Normal External Rotation 5 Normal Internal Rotation 4+ Good+ Knee Strength Knee Manual Muscle Testing Right Flexion (S2) 5 Normal Extension (L3) 5 Normal Left Flexion (S2) 5 Normal Extension (L3) 5 Normal Ankle/Foot Strength Ankle and Foot Manual Muscle Testing Right Dorsiflexion (L4) 5 Normal Plantarflexion (S1) 5 Normal Inversion 5 Normal Eversion (S1) 5 Normal Left Dorsiflexion (L4) 5 Normal Plantarflexion (S1) 5 Normal Inversion 5 Normal Eversion (S1) 5 Normal PT-OP-Q Treatments Start: 08/31/20 15:24 Freq: Status: Active Protocol: Document 12/06/20 07:31 [facility] (Rec: 12/06/20 09:45 [facility] [id number]) Therapeutic Exercises Standing Exercises 4 Standing Exercise Name 1. short foot 2. DF of big toe 3. ext of 2-5 4. lift>abd> lower Side bilateral Manual Therapy Treatment Soft Tissue Mobilization 5 Body Location L calf & achilles Mobilization Type Rolling Intensity/Depth Moderate Neuro Re-Education Treatment Balance Activities bosu Comments 1. step ups /october 2. sls 3. squats on black SLS Details trials in mirror Comments focus on foot and leg position PT-OP-T Assessment and Plan Start: 08/31/20 15:24 Freq: Status: Active Protocol: Document 12/06/20 07:31 [facility] (Rec: 12/06/20 09:45 [facility] [id number]) Physical Therapy Assessment Goals Four Short Term Goal (STG) Pt will have full L ankle range without pain. STG Duration achieved Swimming Teacher Goal (LTG) Pt will return to running and skiing w/o inc pain or tightness in L calf. 11/24-tightness only after but not during LTG Duration achieved doing well Three Short Term Goal (STG) Pt will have equal ROM of R shoulder to L to allow all activities. STG Duration equal range-slight tightness at end range 11/24 Intermediate Goal (LTG) pt will be able to sleep on shoulder w/UE in any position she likes without inc pain. 11/24-can sleep longer bouts w/ less issues LTG Duration still cannot sleep long bouts Two Impairment Quick DASH 40.9 Swimming Teacher Goal (LTG) Pt will improve score to 0 so she can fully return to all activities without pain. 11/24-20.45 LTG Duration improved response to questions One Short Term Goal (STG) Pt will be indep w/HEP in order to strengthen & work on R shoulder ROM & stability. STG Duration achieved Swimming Teacher Goal (LTG) Pt will improve strength to UE & LE 12/14 and EFT to 12/14 to show improved stability to do typical activities without pain. 11/24-achieved w/UE and most of LE, 10/14 EFT LTG Duration very close to meeting goal Assessment Summary Assessment Pt is DC today as she showed good understanding of foot exercises & foot posiitoning. She is going to try her superfeet supports and possibly talk to re: custom inserts if she needs. She did well with balance exercises and intrinsic exercsises. She reports shoulder and arm rarely bother her now and she is consistant w/ HEP Physical Therapy Plan Discharge Physical Therapy Discharge Reasons Goals Met
== END 2020-12-06 13:33 | disposition home or self-care (01) ==
LOC: PHYS 07:30
PROVIDERS: PCP Family Medicine; Referring Provider Family Medicine; Visit Provider Family Medicine
DX: M25.511 Pain in right shoulder (principal); R53.1 Weakness; S86.812D Strain of other muscle(s) and tendon(s) at lower leg level, left leg, subsequent encounter; R26.89 Other abnormalities of gait and mobility
CPT/HCPCS: 97110; 97112; 97116; 97140; 97161; 97164; 97535

== ENCOUNTER → 2021-10-13 07:41 | Outpatient (CLI) | payer OTHER, SELFPAY ==
[2021-10-13 08:52] LABS: Add Manual Diff / Slide Review NO; Basophils Absolute Auto 100 /uL (0-100); Basophils Percent Auto 1.3 % (0-2); Eosinophils Absolute Auto 300 /uL (0-450); Eosinophils Percent Auto 6.6 % (2-4); Hematocrit 37.6 % (36-46); Hemoglobin 12.5 g/dL (12.0-16.0); Lymphocytes Absolute Auto 1100 /uL (1100-4500); Lymphocytes Percent Auto 27.5 % (25-40); Mean Corpuscular HGB Conc 33.3 % (30-36); Mean Corpuscular Hemoglobin 34.7 PG (26-34); Mean Corpuscular Volume 104.3 fL (80-100); Monocytes Absolute Auto 400 /uL (0-900); Monocytes Percent Auto 9.1 % (3-14); Neutrophils Absolute Auto 2300 /uL (1500-7000); Neutrophils Percent Auto 55.5 % (50-75); Platelet Count 351 X10^3/uL (150-400); White Blood Cell Count 4.1 X10^3/uL (4.5-11.0)
[2021-10-13 09:05] LABS: Alanine Aminotransferase 26 IU/L (<35); Albumin 4.4 g/dL (3.5-5.0); Albumin Globulin Ratio 1.6 (1.0-2.8); Alkaline Phosphatase 65 U/L (38-126); Aspartate Aminotransferase 34 IU/L (14-36); BUN Creatinine Ratio 21.7 (6-22); Bilirubin Total 0.6 mg/dL (0.2-1.3); Blood Urea Nitrogen 13 mg/dL (7-17); Carbon Dioxide 27 mmol/L (22-32); Chloride 103 mmol/L (98-107); Cholesterol 203 mg/dL (140-199); Estimated Glomerular Filt Rate > 60.0 mL/min (>60); Globulin 2.8 g/dL (1.7-4.1); Glucose 99 mg/dL (70-100); HEMOLYSIS < 15 (0-50); Potassium 3.9 mmol/L (3.4-5.1); Sodium 137 mmol/L (137-145); Total Protein 7.2 g/dL (6.3-8.2); Triglycerides 44 mg/dL (35-150)
[2021-10-13 09:16] LABS: HDL Cholesterol 132 mg/dL (40-60); LDL Cholesterol Calculated 62 mg/dL (<100)
== END ==
PROVIDERS: PCP Family Medicine; Referring Provider Family Medicine; Visit Provider Family Medicine
DX: E78.5 Hyperlipidemia, unspecified (principal); E87.1 Hypo-osmolality and hyponatremia
CPT/HCPCS: 36415; 80053; 80061; 85025

== ENCOUNTER → 2021-12-22 15:11 | Outpatient (CLI) | payer OTHER, SELFPAY ==
[2021-12-22 15:37] LABS: Appearance Urine UA CLEAR; Bilirubin Urine UA NEGATIVE (NEGATIVE); Color Urine UA ORANGE; Glucose Urine UA TRACE g/dL (Negative); Ketones Urine UA NEGATIVE (NEGATIVE); Leukocyte Esterase Urine UA 1+ (NEGATIVE); Nitrite Urine UA POSITIVE (Negative); Occult Blood Urine UA 1+ (Negative); Protein Urine UA TRACE (Negative); Specific Gravity Urine UA <=1.005 (1.000-1.035)
[2021-12-22 15:54] LABS: Amorphous Sediment Urine 1+; Bacteria Urine Few (2-10); Culture Indicated Urine Specimen Cultured; RBC Urine 0-1/HPF (0-5/HPF); Squamous Epithelial Cell Urine 0-1 /HPF (0-5/HPF); WBC Urine 5-10/HPF (0-5/HPF)
== END ==
PROVIDERS: PCP Family Medicine; Referring Provider Family Medicine; Visit Provider Family Medicine
DX: R30.0 Dysuria (principal)
CPT/HCPCS: 81001; 87086

== ENCOUNTER → 2021-12-27 15:30 | Outpatient (CLI) | payer OTHER, SELFPAY ==
[2021-12-27 17:30] LABS: Appearance Urine UA CLEAR; Bilirubin Urine UA NEGATIVE (NEGATIVE); Color Urine UA YELLOW; Glucose Urine UA NEGATIVE (Negative); Ketones Urine UA NEGATIVE (NEGATIVE); Leukocyte Esterase Urine UA TRACE (NEGATIVE); Nitrite Urine UA NEGATIVE (Negative); Occult Blood Urine UA 1+ (Negative); Protein Urine UA NEGATIVE (Negative); Urobilinogen Urine UA 0.2 E.U./dL (0.2)
[2021-12-27 17:51] LABS: Bacteria Urine Occasional (0-1); Culture Indicated Urine Specimen Cultured; RBC Urine 1-5/HPF (0-5/HPF); Squamous Epithelial Cell Urine 1-5 /HPF (0-5/HPF); WBC Urine 1-5/HPF (0-5/HPF)
== END ==
PROVIDERS: PCP Family Medicine; Referring Provider Family Medicine; Visit Provider Family Medicine
DX: N39.0 Urinary tract infection, site not specified (principal)
CPT/HCPCS: 81001; 87086

== ENCOUNTER → 2022-01-02 16:43 | Outpatient (CLI) | payer OTHER, SELFPAY ==
--- NOTE | 2022-01-02 | DI.MG.S_ITS ---
BILATERAL DIGITAL SCREENING MAMMOGRAM 3D/2D WITH CAD: 01/02/2022 CLINICAL: Routine screening. Family history of breast cancer. Comparison is made to exams dated: 10/10/2020 mammogram, 10/07/2019 mammogram, 08/19/2018 mammogram, and 12/20/2016 mammogram - [facility]. The tissue of both breasts is extremely dense, which lowers the sensitivity of mammography. Current study was also evaluated with a Computer Aided Detection (CAD) system. No significant masses, calcifications, or other findings are seen in either breast. There has been no significant interval change. IMPRESSION: NEGATIVE There is no mammographic evidence of malignancy. A 1 year screening mammogram is recommended. This exam was interpreted at Station ID: [id number]. NOTE: For mammograms, a report in lay terms will be sent to the patient. Approximately 15% of breast malignancies will not be visualized mammographically. In the management of a palpable breast mass, a negative mammogram must not discourage biopsy of a clinically suspicious lesion. Electronically Signed By: Cirilo song/darcy:01/03/2022 08:12:46 copy to: Alisha Dorsey letter sent: Normal Exam ACR BI-RADS Category 1: Negative [id number]
[2022-01-02 19:13] LABS: Appearance Urine UA CLEAR; Bilirubin Urine UA NEGATIVE (NEGATIVE); Color Urine UA YELLOW; Glucose Urine UA NEGATIVE (Negative); Ketones Urine UA NEGATIVE (NEGATIVE); Leukocyte Esterase Urine UA NEGATIVE (NEGATIVE); Nitrite Urine UA NEGATIVE (Negative); Occult Blood Urine UA 1+ (Negative); Protein Urine UA NEGATIVE (Negative); Specific Gravity Urine UA 1.015 (1.000-1.035); Urobilinogen Urine UA 0.2 E.U./dL (0.2)
[2022-01-02 19:26] LABS: Bacteria Urine Moderate (10-30); Culture Indicated Urine Specimen Cultured; RBC Urine 1-5/HPF (0-5/HPF); WBC Urine 5-10/HPF (0-5/HPF)
== END ==
PROVIDERS: PCP Family Medicine; Referring Provider Family Medicine; Visit Provider Family Medicine
DX: R30.0 Dysuria (principal); Z12.31 Encounter for screening mammogram for malignant neoplasm of breast; Z80.3 Family history of malignant neoplasm of breast
CPT/HCPCS: 77063; 77067; 81003; 81015; 87077; 87086; 87186

== ENCOUNTER → 2022-07-10 08:22 | Outpatient (CLI) | payer OTHER, SELFPAY ==
[2022-07-10 09:36] LABS: Influenza A - CEPHEID Flu A POSITIVE (NEGATIVE); Influenza B - CEPHEID Flu B NEGATIVE (NEGATIVE); Respiratory Syncytial Virus Negative (Negative)
[2022-07-10 09:39] LABS: COVID-19 CEPHEID 4-PLEX PCR Negative (Negative)
== END ==
PROVIDERS: PCP Family Medicine; Visit Provider Physician Assistant Medical
DX: J02.9 Acute pharyngitis, unspecified (principal); R05.9 Cough, unspecified
CPT/HCPCS: 0241U; 87070; 87185

== ENCOUNTER → 2022-10-27 08:30 | Outpatient (CLI) | payer OTHER, SELFPAY ==
[2022-10-27 08:53] LABS: Add Manual Diff / Slide Review NO; Basophils Absolute Auto 100 /uL (0-100); Eosinophils Absolute Auto 200 /uL (0-450); Eosinophils Percent Auto 4.2 % (2-4); Hematocrit 40.5 % (36-46); Hemoglobin 13.8 g/dL (12.0-16.0); Lymphocytes Absolute Auto 1500 /uL (1100-4500); Lymphocytes Percent Auto 30.1 % (25-40); Mean Corpuscular HGB Conc 34.1 % (30-36); Mean Corpuscular Hemoglobin 35.4 PG (26-34); Mean Corpuscular Volume 103.9 fL (80-100); Monocytes Absolute Auto 500 /uL (0-900); Monocytes Percent Auto 9.7 % (3-14); Neutrophils Absolute Auto 2800 /uL (1500-7000); Platelet Count 308 X10^3/uL (150-400); Red Cell Distribution Width 13.3 % (11.6-14.8); White Blood Cell Count 5.1 X10^3/uL (4.5-11.0)
[2022-10-27 09:19] LABS: Alanine Aminotransferase 28 IU/L (<35); Albumin 4.5 g/dL (3.5-5.0); Albumin Globulin Ratio 1.6 (1.0-2.8); Alkaline Phosphatase 59 U/L (38-126); Aspartate Aminotransferase 33 IU/L (14-36); BUN Creatinine Ratio 21.1 (6-22); Bilirubin Total 0.8 mg/dL (0.2-1.3); Blood Urea Nitrogen 12 mg/dL (7-17); Calcium 8.7 mg/dL (8.4-10.2); Carbon Dioxide 29 mmol/L (22-32); Chloride 99 mmol/L (98-107); Cholesterol 199 mg/dL (140-199); Estimated Glomerular Filt Rate > 60 mL/min (>60); Globulin 2.9 g/dL (1.7-4.1); Glucose 89 mg/dL (70-100); HEMOLYSIS < 15 (0-50); Sodium 135 mmol/L (137-145); Total Protein 7.4 g/dL (6.3-8.2); Triglycerides 49 mg/dL (35-150)
[2022-10-27 09:29] LABS: HDL Cholesterol 134 mg/dL (40-60); LDL Cholesterol Calculated 55 mg/dL (<100)
[2022-10-27 09:46] LABS: TSH w/ Reflex to FT4 0.78 uIU/mL (0.47-4.68)
== END ==
PROVIDERS: PCP Family Medicine; Referring Provider Family Medicine; Visit Provider Family Medicine
DX: E78.5 Hyperlipidemia, unspecified (principal); E87.1 Hypo-osmolality and hyponatremia; Z13.29 Encounter for screening for other suspected endocrine disorder
CPT/HCPCS: 36415; 80053; 80061; 84443; 85025

== ENCOUNTER → 2022-11-25 09:59 | Outpatient (CLI) | payer OTHER, SELFPAY | PROVIDERS: PCP Family Medicine; Visit Provider Nurse Practitioner Family | DX: R10.9 Unspecified abdominal pain (principal) | CPT/HCPCS: 87077; 87086; 87186 ==

== ENCOUNTER → 2023-10-28 06:54 | Outpatient (CLI) | payer OTHER, SELFPAY ==
[2023-10-28 08:20] LABS: Add Manual Diff / Slide Review NO; Basophils Absolute Auto 0 /uL (0-100); Basophils Percent Auto 0.9 % (0-2); Eosinophils Absolute Auto 200 /uL (0-450); Eosinophils Percent Auto 5.8 % (2-4); Hematocrit 38.7 % (36-46); Hemoglobin 13.2 g/dL (12.0-16.0); Lymphocytes Absolute Auto 1200 /uL (1100-4500); Lymphocytes Percent Auto 28.6 % (25-40); Mean Corpuscular HGB Conc 34.1 % (30-36); Mean Corpuscular Hemoglobin 35.9 PG (26-34); Mean Corpuscular Volume 105.1 fL (80-100); Monocytes Absolute Auto 400 /uL (0-900); Monocytes Percent Auto 8.6 % (3-14); Neutrophils Absolute Auto 2400 /uL (1500-7000); Neutrophils Percent Auto 56.1 % (50-75); Platelet Count 235 X10^3/uL (150-400); Red Blood Cell Count 3.68 X10^6/uL (4.0-5.2); Red Cell Distribution Width 13.5 % (11.6-14.8); White Blood Cell Count 4.2 X10^3/uL (4.5-11.0)
[2023-10-28 08:40] LABS: Alanine Aminotransferase 35 IU/L (<35); Albumin 4.2 g/dL (3.5-5.0); Albumin Globulin Ratio 1.4 (1.0-2.8); Alkaline Phosphatase 96 U/L (38-126); Aspartate Aminotransferase 44 IU/L (14-36); BUN Creatinine Ratio 27.9 (6-22); Bilirubin Total 0.7 mg/dL (0.2-1.3); Blood Urea Nitrogen 17 mg/dL (7-17); Calcium 8.9 mg/dL (8.4-10.2); Carbon Dioxide 26 mmol/L (22-32); Chloride 107 mmol/L (98-107); Cholesterol 189 mg/dL (140-199); Estimated Glomerular Filt Rate > 60 mL/min (>60); Glucose 97 mg/dL (70-100); HDL Cholesterol 105 mg/dL (40-60); HEMOLYSIS < 15 (0-50); LDL Cholesterol Calculated 76 mg/dL (<100); Potassium 4.1 mmol/L (3.4-5.1); Sodium 139 mmol/L (137-145); Total Protein 7.2 g/dL (6.3-8.2); Triglycerides 40 mg/dL (35-150)
[2023-10-28 09:08] LABS: TSH w/ Reflex to FT4 0.66 uIU/mL (0.47-4.68)
[2023-10-29 14:29] LABS: Follicle Stimulating Hormone 74.7 mIU/mL; Luteinizing Hormone 50.5 mIU/mL
== END ==
PROVIDERS: PCP Family Medicine; Referring Provider Physician Assistant; Visit Provider Physician Assistant
DX: E78.5 Hyperlipidemia, unspecified (principal); E87.1 Hypo-osmolality and hyponatremia; Z13.0 Encounter for screening for diseases of the blood and blood-forming organs and certain disorders involving the immune mechanism; N91.2 Amenorrhea, unspecified
CPT/HCPCS: 36415; 80053; 80061; 83001; 83002; 84443; 85025

== ENCOUNTER → 2024-03-04 15:06 | Outpatient (CLI) | payer OTHER, SELFPAY ==
--- NOTE | 2024-03-04 15:07 | DI.RAD.S_ITS ---
PROCEDURE: XR DEXA AXIAL SKELETON INDICATIONS: Estrogen Deficiency; FH Mother; Hx of low Vitamin D COMPARISON: None. FINDINGS: Lumbar Spine: Bone mineral density is 0.960 g/cm2, T score -0.8. Left Hip: Bone mineral density is 0.823 g/cm2, T score -1.0. Left Femoral Neck: Bone mineral density 0.738 g/cm2, T score -1.0. Right Hip: Bone mineral density is 0.854 g/cm2, T score -0.7. Right Femoral Neck: Bone mineral density is 0.741 g/cm2, T score -1.0 Fracture Risk Calculation (when applicable): 10-year fracture risk of a major osteoporotic fracture 4.1% and of a hip fracture 0.2%. (T score greater or equal to -1.0 to: NORMAL) (T score from -1.1 to -2.4: OSTEOPENIA) (T score less than or equal to -2.5: OSTEOPOROSIS) IMPRESSION: Normal bone density. Follow-up guidelines as follows: Osteoporosis: Consider a repeat DEXA and Vertebral Fracture Assessment (VFA) exam in 2 years or sooner if medically necessary, to reassess this patient's status. Osteopenia: Consider a repeat DEXA in 2-3 years to reassess this patient's status, or if there is a new clinical indication. Normal: Consider a repeat DEXA in 5 years or sooner, or if there is a new clinical indication. All treatment decisions require clinical judgment and consideration of individual patient factors, including patient preferences, comorbidities, previous drug use, risk factors not captured in the FRAX model (e.g., frailty, falls, vitamin D deficiency, increased bone turnover, interval significant decline in bone density ) and possible under- or over-estimation of fracture risk by FRAX. In addition, the NOF Guide recommends that FDA-approved medical therapies be considered in postmenopausal women and men age >= 50 years with a: * Hip or vertebral (clinical or morphometric) fracture * T-score of <=-2.5 at the spine or hip * Ten-year fracture probability by FRAX of >= 3% for hip fracture or >=20% for major osteoporotic fracture. People with diagnosed cases of osteoporosis or at high risk for fracture should have regular bone mineral density tests. For patients eligible for Medicare, routine testing is allowed once every 2 years. The testing frequency can be increased to one year for patients who have rapidly progressing disease, those who are receiving or discontinuing medical therapy to restore bone mass, or have additional risk factors. Dictated by: Danis Powers M.D. on 03/05/2024 at 13:53 Approved by: Danis Powers M.D. on 03/05/2024 at 13:59
== END ==
PROVIDERS: PCP Family Medicine; Referring Provider Physician Assistant; Visit Provider Physician Assistant
DX: E55.9 Vitamin D deficiency, unspecified (principal); E28.39 Other primary ovarian failure; Z82.62 Family history of osteoporosis
CPT/HCPCS: 77080

== ENCOUNTER → 2024-09-09 15:35 | Outpatient (CLI) | payer OTHER, SELFPAY ==
--- NOTE | 2024-09-09 15:36 | DI.MG.S_ITS ---
BILATERAL DIGITAL SCREENING MAMMOGRAM 3D/2D WITH CAD: 09/09/2024 CLINICAL: Routine screening. Family history of breast cancer. Comparison is made to exams dated: 01/02/2022 mammogram, 10/10/2020 mammogram, and 10/07/2019 mammogram - [facility]. The breasts are extremely dense, which lowers the sensitivity of mammography (category d />75% glandular tissue). Current study was also evaluated with a Computer Aided Detection (CAD) system. No significant masses, calcifications, or other findings are seen in either breast. There has been no significant interval change. IMPRESSION: NEGATIVE There is no mammographic evidence of malignancy. A 1 year screening mammogram is recommended. Based on Tyrer-Cuzick model (a risk assessment model), the patient's lifetime risk is 22.0% and her 10 year risk is 6.0%. If a patient has an elevated risk, a more comprehensive evaluation should be considered and/or a referral to a genetic counselor. The [place] [employer], [employer], and NCCN Guidelines advise the consideration of Breast MRI as an adjunct to screening mammography in patients whose Lifetime risk to develop breast cancer is 20% or higher. This exam was interpreted at Station ID: [id number]. NOTE: For mammograms, a report in lay terms will be sent to the patient. Approximately 15% of breast malignancies will not be visualized mammographically. In the management of a palpable breast mass, a negative mammogram must not discourage biopsy of a clinically suspicious lesion. Electronically Signed By: David pringle/[email or web address]:09/10/2024 12:17:11 copy to: Alisha Dorsey letter sent: Normal Exam ACR BI-RADS Category 1: Negative
== END ==
PROVIDERS: PCP Family Medicine; Referring Provider Family Medicine; Visit Provider Family Medicine
DX: Z12.31 Encounter for screening mammogram for malignant neoplasm of breast (principal); Z80.3 Family history of malignant neoplasm of breast; R92.343 Mammographic extreme density, bilateral breasts
CPT/HCPCS: 77063; 77067

== ENCOUNTER → 2024-10-29 07:05 | Outpatient (CLI) | payer OTHER, SELFPAY ==
[2024-10-29 07:51] LABS: Add Manual Diff / Slide Review NO; Basophils Absolute Auto 100 /uL (0-100); Basophils Percent Auto 1.2 % (0-2); Eosinophils Absolute Auto 200 /uL (0-450); Eosinophils Percent Auto 3.3 % (2-4); Hematocrit 40.7 % (36-46); Hemoglobin 13.7 g/dL (12.0-16.0); Lymphocytes Absolute Auto 1500 /uL (1100-4500); Lymphocytes Percent Auto 30.1 % (25-40); Mean Corpuscular HGB Conc 33.7 % (30-36); Mean Corpuscular Hemoglobin 35.2 PG (26-34); Mean Corpuscular Volume 104.4 fL (80-100); Monocytes Absolute Auto 300 /uL (0-900); Monocytes Percent Auto 5.7 % (3-14); Neutrophils Absolute Auto 3000 /uL (1500-7000); Neutrophils Percent Auto 59.7 % (50-75); Platelet Count 274 X10^3/uL (150-400); Red Blood Cell Count 3.89 X10^6/uL (4.0-5.2); White Blood Cell Count 5.1 X10^3/uL (4.5-11.0)
[2024-10-29 08:22] LABS: Alanine Aminotransferase 24 IU/L (<35); Albumin 4.4 g/dL (3.5-5.0); Albumin Globulin Ratio 1.8 (1.0-2.8); Alkaline Phosphatase 88 U/L (38-126); Aspartate Aminotransferase 36 IU/L (14-36); Bilirubin Total 0.8 mg/dL (0.2-1.3); Blood Urea Nitrogen 15 mg/dL (7-17); Calcium 9.6 mg/dL (8.4-10.2); Carbon Dioxide 28 mmol/L (22-32); Chloride 103 mmol/L (98-107); Cholesterol 221 mg/dL (140-199); Estimated Glomerular Filt Rate > 60 mL/min (>60); Globulin 2.5 g/dL (1.7-4.1); Glucose 105 mg/dL (70-100); HEMOLYSIS < 15 (0-50); Potassium 4.2 mmol/L (3.4-5.1); Sodium 138 mmol/L (137-145); Total Protein 6.9 g/dL (6.3-8.2); Triglycerides 47 mg/dL (35-150)
[2024-10-29 08:31] LABS: HDL Cholesterol 114 mg/dL (40-60); LDL Cholesterol Calculated 98 mg/dL (<100)
== END ==
LOC: LAB 07:06
PROVIDERS: PCP Family Medicine; Referring Provider Family Medicine; Visit Provider Family Medicine
DX: Z00.00 Encounter for general adult medical examination without abnormal findings (principal); E78.5 Hyperlipidemia, unspecified; E87.1 Hypo-osmolality and hyponatremia
CPT/HCPCS: 36415; 80053; 80061; 84443; 85025

== ENCOUNTER → 2025-07-31 09:47 | Outpatient (CLI) | payer OTHER, SELFPAY | PROVIDERS: PCP Family Medicine; Visit Provider Chiropractor | DX: R30.0 Dysuria (principal) | CPT/HCPCS: 87077; 87086; 87186 ==

== ENCOUNTER → 2025-08-11 11:16 | Outpatient (CLI) | payer OTHER, SELFPAY | PROVIDERS: PCP Family Medicine; Visit Provider Nurse Practitioner Family | DX: R30.0 Dysuria (principal) | CPT/HCPCS: 87086 ==